=== PATIENT | female | born 1970 | race Caucasian/White ===

== ENCOUNTER 2016-07-25 17:47 | Emergency (ER) | payer BC ==
[2016-07-25] MEDS ORDERED: METOCLOPRAMIDE 10 MG/2 ML VIAL IVP STA (19:43)
[2016-07-25] MEDS ORDERED: diphenhydrAMINE 25 MG CAPSULE PO STA (19:43)
[2016-07-25] MEDS ORDERED: SODIUM CHLORIDE 0.9% 1,000 ML IV ONE (19:43)
[2016-07-25] MEDS ORDERED: ONDANSETRON 4 MG/2 ML VIAL IVP STA (19:44)
[2016-07-25] MEDS ORDERED: diphenhydrAMINE INJ 50 MG/ML VIAL ONE (19:59)
[2016-07-25] MEDS ORDERED: ONDANSETRON 4 MG/2 ML VIAL ONE (19:59)
[2016-07-25] MEDS ORDERED: METOCLOPRAMIDE 10 MG/2 ML VIAL IVP ONE (20:00)
[2016-07-25] MEDS ORDERED: diphenhydrAMINE 25 MG CAPSULE PO ONE (20:09)
[2016-07-25] MEDS ORDERED: MAG HYDROX/AL HYDROX/SIMETH 30 ML UDC PO STA (20:21)
[2016-07-25] MEDS ORDERED: HALOPERIDOL 5 MG/ML VIAL IVP ONE (20:21)
[2016-07-25] MEDS ORDERED: LORazepam 2 MG/ML SYRINGE IVP STA (20:21)
[2016-07-25] MEDS ORDERED: MAG HYDROX/AL HYDROX/SIMETH 30 ML UDC ONE (20:41)
[2016-07-25] MEDS ORDERED: HALOPERIDOL 5 MG/ML VIAL ONE (20:41)
[2016-07-25] MEDS ORDERED: LORazepam 2 MG/ML SYRINGE ONE (20:41)
== END 2016-07-25 21:39 | disposition home or self-care (01) ==
DX: G43.A1 Cyclical vomiting, in migraine, intractable (principal); F12.10 Cannabis abuse, uncomplicated; K21.9 Gastro-esophageal reflux disease without esophagitis; F17.200 Nicotine dependence, unspecified, uncomplicated
CPT/HCPCS: 36415; 80053; 81001; 81025; 83690; 85025; 96374; 96375; 99283; 99284; A9270; J2060

== ENCOUNTER 2016-08-09 07:34 | Emergency (ER) | payer BC ==
[2016-08-09] MEDS ORDERED: ONDANSETRON 4 MG/2 ML VIAL IVP STA (07:39)
[2016-08-09] MEDS ORDERED: SODIUM CHLORIDE 0.9% 1,000 ML IV ONE (07:39)
[2016-08-09] MEDS ORDERED: PROMETHAZINE INJ 25 MG in SODIUM CHLORIDE 0.9% 50 ML IV STA (07:40)
[2016-08-09] MEDS ORDERED: LORazepam 2 MG/ML SYRINGE IVP STA (07:40)
[2016-08-09] MEDS ORDERED: HALOPERIDOL 5 MG/ML VIAL IVP STA (07:40)
[2016-08-09] MEDS ORDERED: PROMETHAZINE 25 MG/1 ML VIAL ONE (08:01)
[2016-08-09] MEDS ORDERED: HALOPERIDOL 5 MG/ML VIAL ONE (08:01)
[2016-08-09] MEDS ORDERED: ONDANSETRON 4 MG/2 ML VIAL ONE (08:01)
[2016-08-09] MEDS ORDERED: LORazepam 2 MG/ML SYRINGE ONE (08:01)
[2016-08-09] MEDS ORDERED: PROMETHAZINE 25 MG/1 ML VIAL IM STA (08:05)
[2016-08-09] MEDS ORDERED: POTASSIUM BICARB 25 MEQ TABLET PO STA (09:01)
[2016-08-09] MEDS ORDERED: POTASSIUM BICARB 25 MEQ TABLET PO ONE (09:07)
== END 2016-08-09 09:24 | disposition home or self-care (01) ==
DX: E87.6 Hypokalemia (principal); E86.0 Dehydration; R11.2 Nausea with vomiting, unspecified; R10.84 Generalized abdominal pain; R19.7 Diarrhea, unspecified; K21.9 Gastro-esophageal reflux disease without esophagitis; F17.200 Nicotine dependence, unspecified, uncomplicated
CPT/HCPCS: 36415; 80053; 83690; 85025; 96361; 96372; 96374; 96375; 99283; 99284; A9270; J2060

== ENCOUNTER 2016-08-26 14:20 | Emergency (ER) | payer BC ==
[2016-08-26] MEDS ORDERED: ONDANSETRON 4 MG/2 ML VIAL IVP STA (14:42)
[2016-08-26] MEDS ORDERED: SODIUM CHLORIDE 0.9% 1,000 ML IV ONE (14:42)
[2016-08-26] MEDS ORDERED: PROMETHAZINE INJ 12.5 MG in SODIUM CHLORIDE 0.9% 50 ML IV STA ×2 (14:42→17:08)
[2016-08-26] MEDS ORDERED: MAG HYDROX/AL HYDROX/SIMETH 30 ML UDC PO STA (14:43)
[2016-08-26] MEDS ORDERED: LORazepam 2 MG/ML SYRINGE IVP STA (14:43)
[2016-08-26] MEDS ORDERED: ONDANSETRON 4 MG/2 ML VIAL ONE (15:09)
[2016-08-26] MEDS ORDERED: PROMETHAZINE 25 MG/1 ML VIAL ONE ×2 (15:10→17:24)
[2016-08-26] MEDS ORDERED: LORazepam 2 MG/ML SYRINGE ONE (15:10)
[2016-08-26] MEDS ORDERED: MAG HYDROX/AL HYDROX/SIMETH 30 ML UDC ONE (15:11)
[2016-08-26] MEDS ORDERED: HALOPERIDOL 5 MG/ML VIAL IVP ONE (16:15)
[2016-08-26] MEDS ORDERED: HALOPERIDOL 5 MG/ML VIAL ONE (16:50)
== END 2016-08-26 18:02 | disposition home or self-care (01) ==
DX: G43.A0 Cyclical vomiting, in migraine, not intractable (principal); F17.200 Nicotine dependence, unspecified, uncomplicated
CPT/HCPCS: 36415; 80053; 83690; 96365; 96366; 96375; 99283; 99284; A9270; J2060

== ENCOUNTER 2018-02-09 14:13 | Emergency (ER) | payer SELFPAY ==
[2018-02-09] MEDS ORDERED: PROMETHAZINE INJ 25 MG in SODIUM CHLORIDE 0.9% 50 ML IV STA (14:46)
[2018-02-09] MEDS ORDERED: ONDANSETRON 4 MG/2 ML VIAL IVP STA ×2 (14:46→17:11)
[2018-02-09] MEDS ORDERED: SODIUM CHLORIDE 0.9% 1,000 ML IV ONE (14:46)
[2018-02-09] MEDS ORDERED: LORazepam 2 MG/ML VIAL IVP STA ×2 (14:46→17:11)
[2018-02-09] MEDS ORDERED: KETOROLAC 15 MG/ML VIAL IVP STA (14:46)
[2018-02-09] MEDS ORDERED: MAG HYDROX/AL HYDROX/SIMETH 30 ML UDC PO STA ×2 (14:47→15:34)
[2018-02-09] MEDS ORDERED: LIDOCAINE VISCOUS 2% 15 ML UDC MM STA ×2 (14:47→15:34)
--- NOTE | 2018-02-09 14:47 | ED Physician Documentation ---
PD HPI ABD PAIN - Stated complaint Stated Complaint: VOMITING/ AB PX - Chief complaint Chief Complaint: Abd Pain - History obtained from History obtained from: Patient - History of Present Illness Timing - onset: Other (47-year-old woman with history of recurrent upper abdominal pain and vomiting. She has had this ever since she is 18 and she says she gets it when she ovulates. She has been sick for 2 weeks now with vomiting and diarrhea and epigastric pain radiating downward. She usually takes Ativan, Phenergan, and Zofran for this, she ran out of the Phenergan and Ativan. She has some blood tinge in the vomit a week ago but that is cleared up. 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 : Kidney stones HEENT: None Psych: Anxiety Musculoskeletal: Osteoarthritis Derm: None - Past Surgical History Past Surgical History: Yes General: Colonoscopy, EGD - Present Medications Home Medications: Ambulatory Orders Medication Instructions Recorded Confirmed Omeprazole [PriLOSEC] 20 mg PO DAILY 07/25/16 08/26/16 Promethazine Supp [Phenergan Supp] 25 mg DE Q6H PRN #10 supp 08/26/16 Lorazepam [Ativan] 1 mg PO TID PRN #15 tablet 02/09/18 Promethazine [Phenergan] 25 - 50 mg PO Q6H PRN #15 tab 02/09/18 - Allergies Allergies/Adverse Reactions: Allergies Allergy/AdvReac Type Severity Reaction Status Date / Time codeine [Codeine] Allergy Mild Nausea Verified 02/09/18 19:20 - Social History Does the pt smoke?: Yes Smoking Status: Current every day smoker Does the pt drink ETOH?: No Does the pt have substance abuse?: Yes - Immunizations Immunizations are current?: Yes - POLST Patient has POLST: No PD ED PE NORMAL - Vitals Vital signs reviewed: Yes - General General: Alert and oriented X 3, Other (Retching and uncomfortable) - HEENT HEENT: PERRL, EOMI - Neck Neck: Supple, no meningeal sign, No bony TTP - Cardiac Cardiac: RRR, No murmur - Respiratory Respiratory: No respiratory distress, Clear bilaterally - Abdomen Abdomen: Normal bowel sounds, Soft, Non tender - Derm Derm: Normal color, Warm and dry - Extremities Extremities: No edema, No calf tenderness / cord - Neuro Neuro: Alert and oriented X 3, Normal speech - Psych Psych: Normal mood, Normal affect Results - Vitals Vitals: Vital Signs - 24 hr 02/09/18 02/09/18 02/09/18 14:16 17:57 19:12 Temperature 36.1 C L 37.3 C Heart Rate 73 83 76 Respiratory 18 20 16 Rate Blood Pressure 149/90 H 146/88 H 135/88 H O2 Saturation 98 97 94 02/09/18 02/09/18 19:48 20:08 Temperature 36.7 C Heart Rate 73 86 Respiratory 20 16 Rate Blood Pressure 118/102 H 141/82 H O2 Saturation 97 96 Oxygen O2 Source Room air - Labs Labs: Laboratory Tests 02/09/18 02/09/18 14:35 14:35 WBC 14.7 H RBC 4.59 Hgb 14.6 Hct 43.0 MCV 93.6 MCH 31.7 H MCHC 33.8 RDW 13.9 Plt Count 333 MPV 7.8 L Neut # (Auto) 12.3 H Lymph # (Auto) 1.8 [place] # (Auto) 0.5 Eos # (Auto) 0.0 Baso # (Auto) 0.1 Absolute Nucleated RBC 0.00 Nucleated RBC % 0.0 Sodium 139 Potassium 3.4 L Chloride 109 Carbon Dioxide 22 Anion Gap 8.0 BUN 9 Creatinine 0.7 Estimated GFR (MDRD) 89 Glucose 147 H Calcium 9.0 Magnesium 1.8 Total Bilirubin 0.7 AST 18 ALT 14 Alkaline Phosphatase 57 Total Protein 7.0 Albumin 4.0 Globulin 3.0 Albumin/Globulin Ratio 1.3 Lipase 29 PD MEDICAL DECISION MAKING - ED course ED course: 47-year-old woman with a recurrent issue of vomiting and diarrhea and abdominal pain, seems to happen with ovulation. Has had extensive diagnostic testing in the past. Is out of her medications including Phenergan and Ativan. She was given medications here, and IV fluids. She never really passed an oral challenge, and I offered hospitalization but she wanted to be discharged. She understands she can return at anytime if not better. - Sepsis Event Vital Signs: Vital Signs - 24 hr 02/09/18 02/09/18 02/09/18 14:16 17:57 19:12 Temperature 36.1 C L 37.3 C Heart Rate 73 83 76 Respiratory 18 20 16 Rate Blood Pressure 149/90 H 146/88 H 135/88 H O2 Saturation 98 97 94 02/09/18 02/09/18 19:48 20:08 Temperature 36.7 C Heart Rate 73 86 Respiratory 20 16 Rate Blood Pressure 118/102 H 141/82 H O2 Saturation 97 96 Oxygen O2 Source Room air Departure - Departure Disposition: Home, Self Care Clinical Impression: Abdominal pain, Vomiting Condition: Good Record reviewed to determine appropriate education?: Yes Instructions: ED Nausea Vomiting Prescriptions: Lorazepam [Ativan] 1 mg PO TID PRN #15 tablet PRN Reason: Anxiety Promethazine [Phenergan] 25 - 50 mg PO Q6H PRN #15 tab PRN Reason: Nausea / Vomiting Comments: Call your doctor to arrange a follow-up appointment, make the next available appointment. In the interim, return anytime if worse or if new symptoms develop. Your blood pressure was elevated today on check into the emergency department. This does not mean that you have hypertension, it is a common phenomenon to come to the emergency department and have elevated blood pressure. I recommend that you see your primary care physician within the week to have it rechecked when you are feeling better.
[2018-02-09 14:55] LABS: BASOPHILS # (AUTO) 0.1 10^3/uL (0.0-0.1); BASOPHILS % (AUTO) 0.4 %; EOSINOPHILS % (AUTO) 0.3 %; HGB - HEMOGLOBIN 14.6 g/dL (12.0-16.0); LYMPHOCYTES # (AUTO) 1.8 10^3/uL (1.5-3.5); LYMPHOCYTES % (AUTO) 11.9 %; MEAN CORPUSCULAR HEMOGLOBIN 31.7 pg (27.0-31.0); MEAN CORPUSCULAR HGB CONC 33.8 g/dL (32.0-36.0); MEAN CORPUSCULAR VOLUME 93.6 fL (81.0-99.0); MEAN PLATELET VOLUME 7.8 fL (7.9-10.8); MONOCYTES # (AUTO) 0.5 10^3/uL (0.0-1.0); MONOCYTES % (AUTO) 3.6 %; NEUTROPHILS # (AUTO) 12.3 10^3/uL (1.5-6.6); NEUTROPHILS % (AUTO) 83.8 %; PLT - PLATELET COUNT 333 10^3/uL (130-450); RED BLOOD COUNT 4.59 10^6/uL (4.20-5.40); RED CELL DISTRIBUTION WIDTH 13.9 % (12.0-15.0); WHITE BLOOD COUNT 14.7 x10^3/uL (4.8-10.8)
[2018-02-09 15:10] LABS: ALBUMIN/GLOBULIN RATIO 1.3 (1.0-2.2); BILIRUBIN,TOTAL 0.7 mg/dL (0.2-1.0); CREATININE 0.7 mg/dL (0.4-1.0); MAGNESIUM 1.8 mg/dL (1.7-2.8)
[2018-02-09] MEDS ORDERED: PROMETHAZINE 25 MG/1 ML VIAL IM STA ×2 (15:34→19:50)
[2018-02-09] MEDS ORDERED: METOCLOPRAMIDE 10 MG/2 ML VIAL IVP STA (18:13)
[2018-02-09 20:09] VITALS: BP 141/82
[2018-02-09] MEDS ORDERED: PROMETHAZINE 25 MG TABLET PO STA (20:10)
[2018-02-09] MEDS ORDERED: LORazepam 0.5 MG TABLET PO STA (20:10)
== END 2018-02-09 20:20 | disposition home or self-care (01) ==
LOC: ED 14:13
DX: R10.9 Unspecified abdominal pain (principal); R11.10 Vomiting, unspecified; R03.0 Elevated blood-pressure reading, without diagnosis of hypertension
CPT/HCPCS: 36415; 80053; 83690; 83735; 85025; 96372; 96374; 96375; 99283; 99284; A9270; J2060; J2765; Q0169

== ENCOUNTER 2018-04-01 09:33 | Observation (INO) | payer MEDICAID ==
[2018-04-01 10:00] LABS: BASOPHILS # (AUTO) 0.1 10^3/uL (0.0-0.1); BASOPHILS % (AUTO) 0.5 %; EOSINOPHILS % (AUTO) 0.1 %; HGB - HEMOGLOBIN 15.2 g/dL (12.0-16.0); LYMPHOCYTES # (AUTO) 2.6 10^3/uL (1.5-3.5); LYMPHOCYTES % (AUTO) 18.2 %; MEAN CORPUSCULAR HEMOGLOBIN 31.9 pg (27.0-31.0); MEAN CORPUSCULAR HGB CONC 34.5 g/dL (32.0-36.0); MEAN CORPUSCULAR VOLUME 92.5 fL (81.0-99.0); MEAN PLATELET VOLUME 8.2 fL (7.9-10.8); MONOCYTES # (AUTO) 0.9 10^3/uL (0.0-1.0); MONOCYTES % (AUTO) 6.3 %; NEUTROPHILS # (AUTO) 10.5 10^3/uL (1.5-6.6); NEUTROPHILS % (AUTO) 74.9 %; PLT - PLATELET COUNT 262 10^3/uL (130-450); RED BLOOD COUNT 4.76 10^6/uL (4.20-5.40); RED CELL DISTRIBUTION WIDTH 14.1 % (12.0-15.0); WHITE BLOOD COUNT 14.1 x10^3/uL (4.8-10.8)
[2018-04-01 10:13] LABS: ALBUMIN 4.5 g/dL (3.2-5.5); ALBUMIN/GLOBULIN RATIO 1.3 (1.0-2.2); BILIRUBIN,TOTAL 0.7 mg/dL (0.2-1.0); CREATININE 0.7 mg/dL (0.4-1.0); TOTAL PROTEIN 7.9 g/dL (6.7-8.2)
--- NOTE | 2018-04-01 10:34 | ED Physician Documentation ---
PD HPI NVD - Stated complaint Stated Complaint: NAUSEA,VOMITING,ABD PX - Chief complaint Chief Complaint: Abd Pain - History obtained from History obtained from: Patient - History of Present Illness Timing - onset: How many days ago (3) Timing - duration: Days (3) Timing - details: Gradual onset, Still present Associated symptoms: No: Fever, Abdominal pain, Chest pain Contributing factors: Other (stress and menstration). No: Sick contact, Bad food, Travel, Recent antibiotics, Alcohol use, Anticoagulated, Diabetes Similar symptoms before: Diagnosis (cyclical vomiting) Recently seen: Not recently seen - Additonal information Additional information: 47-year-old female with a history of cyclical vomiting has developed vomiting again about 3 days ago. She has been able unable to keep anything of substance down. It has been more than 1 year since her last visit to the emergency department. She states that she did get some acupuncture that helped. Review of Systems Constitutional: denies: Fever Eyes: denies: Decreased vision Ears: denies: Ear pain Nose: denies: Rhinorrhea / runny nose, Congestion Throat: denies: Sore throat Cardiac: denies: Chest pain / pressure, Palpitations Respiratory: denies: Dyspnea, Cough GI: reports: Nausea, Vomiting. denies: Abdominal Pain : denies: Dysuria, Frequency Skin: denies: Rash Musculoskeletal: denies: Neck pain, Back pain, Extremity pain Neurologic: denies: Generalized weakness, Focal weakness, Numbness PD PAST MEDICAL HISTORY - Past Medical History Past Medical History: Yes Cardiovascular: None Respiratory: None Neuro: None Endocrine/Autoimmune: None GI: GERD, GI bleed, Ulcers, Chronic diarrhea, Other CMO: None : Kidney stones HEENT: None Psych: Anxiety Musculoskeletal: Osteoarthritis Derm: None - Past Surgical History Past Surgical History: Yes General: Colonoscopy, EGD - Present Medications Home Medications: Ambulatory Orders Medication Instructions Recorded Confirmed Ondansetron HCl [Zofran] 4 mg PO PRN 04/01/18 - Allergies Allergies/Adverse Reactions: Allergies Allergy/AdvReac Type Severity Reaction Status Date / Time codeine [Codeine] Allergy Mild Nausea Verified 04/01/18 09:41 - Social History Does the pt smoke?: Yes Smoking Status: Current every day smoker Does the pt drink ETOH?: No Does the pt have substance abuse?: Yes Substance Use and Type: Marijuana - Immunizations Immunizations are current?: Yes - POLST Patient has POLST: No PD ED PE NORMAL - Vitals Vital signs reviewed: Yes (hypertensive) - General General: Alert and oriented X 3, Well developed/nourished, Other (facial expression of nausea) - HEENT HEENT: Atraumatic, PERRL, EOMI, Other (dry mucous membranes ) - Neck Neck: Supple, no meningeal sign, No bony TTP - Cardiac Cardiac: RRR, No murmur - Respiratory Respiratory: No respiratory distress, Clear bilaterally - Abdomen Abdomen: Soft, Non tender - Back Back: No CVA TTP, No spinal TTP - Derm Derm: Normal color, Warm and dry, No rash - Extremities Extremities: No deformity, No edema - Neuro Neuro: Alert and oriented X 3, 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 ) Results - Vitals Vitals: Vital Signs - 24 hr 04/01/18 04/01/18 04/01/18 09:40 12:35 15:45 Temperature 36.6 C Heart Rate 72 68 68 Respiratory 16 22 18 Rate Blood Pressure 149/87 H 121/85 H 93/53 L O2 Saturation 97 95 96 04/01/18 04/01/18 16:39 16:44 Temperature 37.4 C Heart Rate 53 L 65 Respiratory 16 Rate Blood Pressure 94/61 O2 Saturation 96 Oxygen O2 Source Room air - Labs Labs: Laboratory Tests 04/01/18 04/01/18 04/01/18 09:50 09:50 15:10 WBC 14.1 H RBC 4.76 Hgb 15.2 Hct 44.1 MCV 92.5 MCH 31.9 H MCHC 34.5 RDW 14.1 Plt Count 262 MPV 8.2 Neut # (Auto) 10.5 H Lymph # (Auto) 2.6 [place] # (Auto) 0.9 Eos # (Auto) 0.0 Baso # (Auto) 0.1 Absolute Nucleated RBC 0.00 Nucleated RBC % 0.0 Sodium 137 Potassium 2.7 L Chloride 97 L Carbon Dioxide 27 Anion Gap 13.0 BUN 12 Creatinine 0.7 Estimated GFR (MDRD) 89 Glucose 133 H Calcium 9.0 Total Bilirubin 0.7 AST 22 ALT 17 Alkaline Phosphatase 59 Total Protein 7.9 Albumin 4.5 Globulin 3.4 Albumin/Globulin Ratio 1.3 Lipase 64 H Urine Color DARK YELLOW Urine Clarity CLOUDY Urine pH 8.5 H Ur Specific [place] 1.010 Urine Protein 30 H Urine Glucose (UA) NEGATIVE Urine Ketones NEGATIVE Urine Occult Blood SMALL H Urine Nitrite NEGATIVE Urine Bilirubin NEGATIVE Urine Urobilinogen 0.2 (NORMAL) Ur Leukocyte Esterase TRACE H Urine RBC 0-5 Urine WBC 4-5 Ur Squamous Epith Cells MOD Squamous H Urine Crystals 0-2 Triple Phosphate Amorphous Sediment Marked Urine Bacteria Rare Urine Mucus Moderate Strands Ur Microscopic Review INDICATED Urine Culture Comments NOT INDICATED Urine HCG, Qual 04/01/18 15:10 WBC RBC Hgb Hct MCV MCH MCHC RDW Plt Count MPV Neut # (Auto) Lymph # (Auto) [place] # (Auto) Eos # (Auto) Baso # (Auto) Absolute Nucleated RBC Nucleated RBC % Sodium Potassium Chloride Carbon Dioxide Anion Gap BUN Creatinine Estimated GFR (MDRD) Glucose Calcium Total Bilirubin AST ALT Alkaline Phosphatase Total Protein Albumin Globulin Albumin/Globulin Ratio Lipase Urine Color Urine Clarity Urine pH Ur Specific [place] 1.010 Urine Protein Urine Glucose (UA) Urine Ketones Urine Occult Blood Urine Nitrite Urine Bilirubin Urine Urobilinogen Ur Leukocyte Esterase Urine RBC Urine WBC Ur Squamous Epith Cells Urine Crystals Amorphous Sediment Urine Bacteria Urine Mucus Ur Microscopic Review Urine Culture Comments Urine HCG, Qual NEGATIVE PD MEDICAL DECISION MAKING - ED course Complexity details: reviewed old records, reviewed results, re-evaluated patient, considered differential, d/w patient ED course: 47-year-old female with a history of cyclic vomiting syndrome has developed vomiting again and she has some improvement with the use of intravenous Zofran and further improvement with use of intravenous Phenergan. She received 2 L of normal saline here in the emergency department and she received 10 mEq of potassium chloride and a second 20 mEq IV dose of potassium chloride. She feels improved at the conclusion of treatment and feels that she will likely be able to make it at home. After he IV is removed she immediately has issues with vomiting and admission is sought for intractable vomiting. Dr. Tran is consulted in the case and graciously agrees to care for the patient in the hospital. - Sepsis Event Vital Signs: Vital Signs - 24 hr 04/01/18 04/01/18 04/01/18 09:40 12:35 15:45 Temperature 36.6 C Heart Rate 72 68 68 Respiratory 16 22 18 Rate Blood Pressure 149/87 H 121/85 H 93/53 L O2 Saturation 97 95 96 04/01/18 04/01/18 16:39 16:44 Temperature 37.4 C Heart Rate 53 L 65 Respiratory 16 Rate Blood Pressure 94/61 O2 Saturation 96 Oxygen O2 Source Room air Departure - Departure Disposition: ED Place in Observation Clinical Impression: Hypokalemia Cyclic vomiting syndrome Qualifiers: Vomiting Intractability: intractable Nausea presence: with nausea Qualified Code(s): G43.A1 - Cyclical vomiting, intractable Condition: Stable Follow-Up: Kerrie Ruiz PA [Primary Care Provider] - Prescriptions: Promethazine Supp [Phenergan Supp] 25 mg [place] Q6HR PRN #20 supp PRN Reason: Nausea / Vomiting Ondansetron Odt [Zofran] 4 mg TL Q6H PRN #10 tablet PRN Reason: Nausea / Vomiting Potassium Chloride 20 meq PO TID #15 tablet.er
[2018-04-01] MEDS ORDERED: POTASSIUM CHLOR 10 MEQ/100 ML 10 MEQ/100 ML BAG IV ONE (11:42)
[2018-04-01] MEDS ORDERED: SODIUM CHLORIDE 0.9% 1,000 ML IV ONE ×2 (12:26→14:07)
[2018-04-01] MEDS ORDERED: ONDANSETRON 4 MG/2 ML VIAL IVP STA (12:26)
[2018-04-01] MEDS ORDERED: MAG HYDROX/AL HYDROX/SIMETH 30 ML UDC PO STA ×2 (12:26→17:34)
[2018-04-01] MEDS ORDERED: LORazepam 2 MG/ML VIAL IVP STA (12:27)
[2018-04-01] MEDS ORDERED: LIDOCAINE VISCOUS 2% 15 ML UDC MM STA ×2 (12:27→17:34)
[2018-04-01] MEDS ORDERED: PROMETHAZINE INJ 25 MG in SODIUM CHLORIDE 0.9% 50 ML IV STA ×2 (14:10→17:15)
[2018-04-01] MEDS ORDERED: POTASSIUM CHLOR 20 MEQ/100 ML 20 MEQ/100 ML BAG IV ONE (14:10)
[2018-04-01 15:36] LABS: BILIRUBIN,URINE NEGATIVE (NEGATIVE); GLUCOSE, URINE (UA) NEGATIVE (NEGATIVE); KETONES,URINE (UA) NEGATIVE (NEGATIVE); LEUKOCYTE ESTERASE, URINE TRACE (NEGATIVE); NITRITE,URINE NEGATIVE (NEGATIVE); OCCULT BLOOD,URINE SMALL (NEGATIVE); PH,URINE 8.5 PH (5.0-7.5); PROTEIN,URINE 30 mg/dL (NEGATIVE); UROBILINOGEN,URINE 0.2 (NORMAL) E.U./dL (NORMAL)
[2018-04-01 15:46] LABS: CLARITY,URINE CLOUDY (CLEAR)
[2018-04-01 15:47] LABS: RBC,URINE 0-5 /HPF (0-5); SQUAMOUS EPITHELIAL CELL,UR MOD Squamous (<= Few)
[2018-04-01 15:48] LABS: AMORPHOUS SEDIMENT,UR Marked /LPF; BACTERIA,URINE Rare /HPF (None Seen); CRYSTALS,URINE 0-2 Triple Phosphate /LPF; HCG UR QUAL NEGATIVE; MUCUS,URINE Moderate Strands
--- NOTE | 2018-04-01 18:16 | HISTORY & PHYSICAL EXAMINATION ---
Chief Complaint - Chief Complaint Chief Complaint: nausea and vomiting History of Present Illness - History of Present Illness HPI Comment/Other: Ms. Cruz is 47-yrs-old female with a PMH significance for GERD, PUP, anxiety and arthritis, current cigarette smoker, who present ER for nausea, vomiting, diffused abdominal pain. Pt has been diagnosed with cyclic vomiting and abdominal pain, on and off for last 35 yrs. From all her report, all of her w orkup has been negative. Pt reports her last nausea and vomiting, and abdominal cramp pain was three weeks ago. She did not go to hospital, the symptoms were subsided by its own. For This time, She has been nausea and vomiting and abdominal cramping from last Sunday. She has been taking Zofran at home, but she was unable to keep those symptoms down. she report a diffused abdominal pain as she had before. she has been difficult to keep down her diet. She denies recent travel or sick contacts or food poisons. She denies chest pain, shortness of breath, fever, chill, cough. 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 Social History Notes: pt report she still smokes cigarette, she denies alcohol issue. she report she smoke majuana occationally - Substance History Use: Uses substance without health or social issues: Tobacco - POLST Patient has POLST: No Meds/Allgy - Home Medications Home Medications: Ambulatory Orders Medication Instructions Recorded Confirmed Ondansetron HCl [Zofran] 4 mg PO PRN 04/01/18 - Allergies Allergies/Adverse Reactions: Allergies Allergy/AdvReac Type Severity Reaction Status Date / Time codeine [Codeine] Allergy Mild Nausea Verified 09/24/18 09:41 Review of Systems - Constitutional Constitutional: denies: Fatigue, Fever, Chills, Malaise, Weakness, Poor appetite, Diaphoresis, Night sweats - Eyes Eyes: denies: Pain, Irritation, Amaurosis, Blurred vision, Spots in vision, Field loss, Vision loss, Dipolpia - Ears, Nose & Throat Ears, Nose & Throat: denies: Ear pain, Hearing loss, Hearing aids, Tinnitus, Ve rtigo, Nasal pain, Nasal discharge, Nosebleeds, Nasal obstruction, Postnasal drainage, Dentures, Sore throat, Hoarseness - Cardiovascular Cariovascular: denies: Irregular heart rate, Palpitations, Chest pain, Edema, Lightheadedness, Syncope, Exertional dyspnea, Decr. exercise tolerance - Respiratory Respiratory: denies: Cough, Sputum production, Wheezing, Snoring, Hemoptysis, Orthopnea, SOB at rest, SOB with exertion - Gastrointestinal Gastrointestinal: reports: Abdominal pain, Nausea, Vomiting. denies: Abdominal distention, Constipation, Diarrhea, Change in bowel habits, Rectal bleeding, Black stools, Bloody stools, Bile emesis, Piero blood emesis, Coffee grounds emesis, Reflux/heartburn - Genitourinary Genitourinary: denies: Dysuria, Frequency, Urgency, Hematuria, Incontinence, Flank pain, Nocturia, Urethral discharge - Musculoskeletal Musculoskeletal: denies: Muscle pain, Back pain, Muscle aches, Stiffness, Limited range of motion, Muscle weakness, Gout, Joint pain - Integumentary Integumentary: denies: Rash, Pruritis, Lesions, Dryness, Lumps, Acne, Pigment changes - Neurological Neurological: denies: General weakness, Focal weakness, Headache, Dizziness, Numbness, Pre-existing deficit, Abnormal gait, Seizures, Incoordination, Slurred speech - Psychiatric Psychiatric: denies: Depression, Anxiety, Suicidal, Delusions, Hallucinations, Homicidal - Endocrine Endocrine: denies: Polyuria, Polydypsia, Polyphagia, Intolerance to cold - Hematologic/Lymphatic Hematologic/Lymphatic: denies: Anemia, Bruising, Petechiae, Blood clots, Lymphadenopathy, Bleeding tendencies Exam - Vital Signs Reviewed Vital Signs: Yes Vital Signs: Vital Signs x48h Temp Pulse Resp BP Pulse Ox 04/01/18 16:44 65 04/01/18 16:39 37.4 C 53 L 16 94/61 96 04/01/18 15:45 68 18 93/53 L 96 04/01/18 12:35 68 22 121/85 H 95 - Physical Exam General Appearance: positive: No acute distress, Alert. negative: Lethargic Eyes Bilateral: positive: Normal inspection, PERRL, No lid inflammation, Conjunctivae nml ENT: positive: ENT inspection nml, Pharynx nml, No signs of dehydration. negative: Purulent nasal drainage, Pharyngeal erythema, Oral lesions Neck: positive: Nml inspection, Thyroid nml, No JVD, Trachea midline. negative: Thyromegaly, Lymphadenopathy (R), Lymphadenopathy (L), Stiff neck, Swelling/bruising, Tracheal deviation Respiratory: positive: Chest non-tender, No respiratory distress, Breath sounds nml. negative: Wheezes, Rales, Rhonchi Cardiovascular: positive: Regular rate & rhythm, No murmur, No gallop. negative: Irregularly irregular, Extrasystoles, Tachycardia, Bradycardia, JVD present, Systolic murmur, Diastolic murmur Peripheral Pulses: positive: 2+ Abdomen: positive: Non-tender, No organomegaly, No distention. negative: Tenderness, Guarding, Rebound Back: positive: Nml inspection. negative: CVA tenderness (R), CVA tenderness (L) Skin: positive: Color nml, No rash, Warm, Dry. negative: Cyanosis, Diaphoresis, Pallor Extremities: positive: Non-tender, Full ROM, Nml appearance. negative: Calf tenderness, Joint swelling, Bonny's sign/cords Neurologic/Psychiatric: positive: Oriented x3, Motor nml, Sensation nml, Mood/affect nml. negative: Weakness, Sensory loss, Facial droop, Slurred/abnml speech, Depressed mood/affect Conclusion/Plan - Problem List (1) Cyclic vomiting syndrome Conclusion/Plan: chronic and recurrent. Pt report her symptoms are the similar as before clear diet, advance as tolerate, bowel rest IVF antiemesis PRN lab monitor, vital monitor Qualifiers: Vomiting Intractability: intractable Nausea presence: with nausea Qualified Code(s): G43.A1 - Cyclical vomiting, intractable (2) Hypokalemia Conclusion/Plan: replace with potassium will lab check (3) GERD (gastroesophageal reflux disease) Conclusion/Plan: hx of GERD, abdominal cramping IV of Protonic (4) Lymphocytosis Conclusion/Plan: Pt has hx of slight elevated WBC in her almost every hospital visit, UA seems negative for UTI, no fever/chill vital monitor, lab monitor. (5) Abdominal pain Conclusion/Plan: part complaint of her cyclic vomiting syndrome, all studies are negative as far, recurrent and chronic problem pain control, pt is allergy with codeine Toradol PRN, less than 5 days Tylenol PRN (6) Anxiety Conclusion/Plan: hx of anxiety PO ativan PRN (7) DVT prophylaxis Conclusion/Plan: SCD and Lovenox (8) Do not intubate, cardiopulmonary resuscitation (CPR)-only code status Conclusion/Plan: pt clearly request DNR for her code status - Lab Results Fish Bones: 04/01/18 09:50 04/01/18 09:50 Core Measures - Anticipated LOS I expect patient to be DC'd or transferred within 96 hours.: Yes - DVT/VTE - Prophylaxis VTE/DVT Device ordered at admit?: Yes VTE/DVT Prophylaxis med ordered at admit?: Yes
[2018-04-01] MEDS ORDERED: ONDANSETRON 4 MG/2 ML VIAL IVP PRN (18:18)
[2018-04-01] MEDS ORDERED: PROCHLORPERAZINE 10 MG/2 ML VIAL IVP PRN (18:18)
[2018-04-01] MEDS ORDERED: ZOLPIDEM 5 MG TABLET PO PRN (18:18)
[2018-04-01] MEDS ORDERED: PROMETHAZINE 25 MG/1 ML VIAL IM PRN (18:18)
[2018-04-01] MEDS ORDERED: ACETAMINOPHEN 325 MG TABLET PO PRN (18:18)
[2018-04-01] MEDS ORDERED: KETOROLAC 15 MG/ML VIAL IVP PRN (19:27)
[2018-04-01] MEDS: PANTOPRAZOLE 40 MG VIAL IVP SCH (19:32)
[2018-04-01] MEDS: SODIUM CHLORIDE FLUSH 0.9% 10 ML SYRINGE IVP PRN (19:32)
[2018-04-01] MEDS: POTASSIUM CHLOR 10 MEQ/100 ML 10 MEQ/100 ML BAG IV SCH ×2 (19:37→20:43)
[2018-04-01] MEDS ORDERED: NS W/20 MEQ KCL 1,000 ML IV SCH (20:45)
[2018-04-01] MEDS: NS W/20 MEQ KCL 1,000 ML IV SCH (21:30)
[2018-04-01 22:36] LABS: AMPHETAMINE SCREEN,URINE NEGATIVE (NEGATIVE); BENZODIAZEPINES SCREEN, URINE POSITIVE (NEGATIVE); COCAINE SCREEN URINE NEGATIVE (NEGATIVE); METHADONE SCREEN, URINE NEGATIVE (NEGATIVE); METHAMPHETAMINES SCREEN, URINE NEGATIVE (NEGATIVE); MUDS CUTOFF CONCENTRATIONS CUTOFF CONC BELOW:; OPIATE SCREEN, URINE NEGATIVE (NEGATIVE); OXYCODONE SCREEN, URINE NEGATIVE (NEGATIVE); PROPOXYPHENE SCREEN, URINE NEGATIVE (NEGATIVE); TRICYCLIC ANTIDEPRESSANT,URINE NEGATIVE (NEGATIVE)
[2018-04-01] MEDS: SODIUM CHLORIDE FLUSH 0.9% 10 ML SYRINGE IVP SCH (23:09)
[2018-04-01] MEDS ORDERED: LORazepam 0.5 MG TABLET PO PRN (23:17)
[2018-04-02] MEDS: NS W/20 MEQ KCL 1,000 ML IV SCH (04:04)
[2018-04-02 05:31] LABS: BASOPHILS % (AUTO) 0.4 %; EOSINOPHILS % (AUTO) 0.2 %; HGB - HEMOGLOBIN 12.3 g/dL (12.0-16.0); LYMPHOCYTES # (AUTO) 3.4 10^3/uL (1.5-3.5); MEAN CORPUSCULAR HEMOGLOBIN 32.3 pg (27.0-31.0); MEAN CORPUSCULAR HGB CONC 34.3 g/dL (32.0-36.0); MEAN CORPUSCULAR VOLUME 94.4 fL (81.0-99.0); MEAN PLATELET VOLUME 8.4 fL (7.9-10.8); MONOCYTES # (AUTO) 0.7 10^3/uL (0.0-1.0); MONOCYTES % (AUTO) 6.6 %; NEUTROPHILS # (AUTO) 5.9 10^3/uL (1.5-6.6); NEUTROPHILS % (AUTO) 58.8 %; PLT - PLATELET COUNT 186 10^3/uL (130-450); RED BLOOD COUNT 3.82 10^6/uL (4.20-5.40); RED CELL DISTRIBUTION WIDTH 13.7 % (12.0-15.0); WHITE BLOOD COUNT 10.1 x10^3/uL (4.8-10.8)
[2018-04-02 05:46] LABS: ALBUMIN 3.1 g/dL (3.2-5.5); ALBUMIN/GLOBULIN RATIO 1.3 (1.0-2.2); BILIRUBIN,TOTAL 0.5 mg/dL (0.2-1.0); CREATININE 0.6 mg/dL (0.4-1.0); MAGNESIUM 2.1 mg/dL (1.7-2.8); TOTAL PROTEIN 5.5 g/dL (6.7-8.2)
[2018-04-02] MEDS: SODIUM CHLORIDE FLUSH 0.9% 10 ML SYRINGE IVP PRN (06:12)
[2018-04-02] MEDS: PANTOPRAZOLE 40 MG VIAL IVP SCH (06:12)
[2018-04-02] MEDS: SODIUM CHLORIDE FLUSH 0.9% 10 ML SYRINGE IVP SCH (07:19)
[2018-04-02] MEDS ORDERED: POLYETHYLENE GLYCOL 3350 17 GM PACKET PO SCH (09:00)
[2018-04-02] MEDS ORDERED: ENOXAPARIN 40 MG/0.4 ML SYRINGE SUBQ SCH (09:00)
--- NOTE | 2018-04-02 09:20 | DISCHARGE SUMMARY ---
"Discharge Summary Admit Date: 04/01/18 Discharge Date: 04/02/18 Discharging Provider: GRIS Kirby Primary Care Provider: Kerrie Ruiz Code Status: Attempt Resuscitation Condition at Discharge: Good Discharge Disposition: 01 Home, Self Care - DIAGNOSES Admission Diagnoses: Cyclical vomiting, not intractable (G43.A0) Nausea with vomiting, unspecified (R11.2) Hypokalemia (E87.6) Elevated white blood cell count, unspecified (D72.829) Gastro-esophageal reflux disease without esophagitis (K21.9) Discharge Diagnoses with Status of Each Condition: Cyclic vomiting syndrome (G43.A0) resolved. Hypokalemia (E87.6) resolved. Leukocytosis (D72.829) resolved. GERD (gastroesophageal reflux disease) (K21.9) chronic, stable. Intractable nausea and vomiting (R11.2) resolved. Menstrual symptom or sign (N94.9) chronic, stable. Tobacco dependence (F17.200)chronic, stable. - HPI History of Present Illness: Gale Cruz (Katie) is 47-yr-old female with a past medical history of GERD, peptic ulcer disease, anxiety, arthritis, and current cigarette smoker, who presented to the ER with nausea, vomiting, and diffuse abdominal pain that started last Sunday. The patient has been diagnosed with cyclic vomiting and abdominal pain in the past, on and off for last 35 years and is typically around the time of her menses. Previous workups have been negative. The patient reported that her last nausea, vomiting, and abdominal cramping pain was three weeks ago. She did not go to hospital and the symptoms subsided by its own. She has been taking Zofran at home, but her symptoms continued to progress with the inability to keep anything orally down. She denied chest pain, shortness of breath, fevers, chills, or a cough. She will be admitted to our observation unit to further control her symptoms. - CONSULTS | PROCEDURES Consultations: Phone consult-Dr. Shah for an interest in a possible IUD placement. - HOSPITAL COURSE Hospital Course: (1) Cyclic vomiting syndrome The patient has been suffering from this for most of her adult life and it is thought to be chronic and recurrent. The patient reported her symptoms to be similar as before. The patient was given a clear diet, then advanced to a soft diet. This is resolved upon discharge and the patient had zofran prescribed previously. (2) Hypokalemia The patient had a very low potassium of 2.7 upon admission, that improved to 3.7 at the time of discharge. She was given IV fluids with potassium and was given oral replacement. This was likely caused by nausea and vomiting. At the time of discharge, the patient was tolerating a meal and was no longer nauseated. (3) GERD (gastroesophageal reflux disease) The patient has a history of GERD and is prescribed carafate, prilosec and zantac at home. She was also found to have abdominal cramping. She denied black stool. She was given IV Protonix, that was discontinued. (4) Lymphocytosis Pt has a history of slightly elevated WBC in her almost every hospital visit, and upon admission, she had a WBC count of 14.1, that improved to 10.1 upon d ischarge. A urine sample was obtained and was negative for UTI. The patient reported no fever or chill and remained afebrile for her hospital stay. (5) Abdominal pain The patient complained of low abdominal pain and states that this occurs when she is menstruating. She was given Toradol PRN, and Tylenol PRN. This has resolved upon discharge. (6) Anxiety The patient has a history of anxiety. She was given oral ativan as needed, and this has subsided upon discharge. (7) Tobacco dependence The patient states that she has been a smoker for much of her adulthood, and continues to smoke up to 1/2 PPD. She was offered a nicotine patch upon admission, but declined. (8) Menstrual symptoms The patient states that since age 18, she has had severe menstrual symptoms in which she becomes nauseated, vomits, and these symptoms subsided after her cycle. She states that she has never been , does not have children, and has never had any gynecological procedures or surgeries. A call was made to Dr. Shah for a phone consult as possibly an IUD would serve her well in making her symptoms less severe as she gets through her suspected menopause. Disposition: The patient was medically stable and was agreeable to see a wool hanker out patient for further work up of her irregular and more severe PMS/menstrual cycles that has been progressive for the past year. - ALLERGIES Allergies/Adverse Reactions: Allergies Allergy/AdvReac Type Severity Reaction Status Date / Time codeine [Codeine] Allergy Mild Nausea Verified 04/01/18 09:41 - MEDICATIONS Home Medications: Ambulatory Orders Medication Instructions Recorded Confirmed ALPRAZolam [Alprazolam] 0.5 mg PO BID PRN 04/02/18 04/02/18 LORazepam [Lorazepam] 1 mg PO .Q6-8H PRN 04/02/18 04/02/18 Omeprazole 20 mg PO DAILY PRN 04/02/18 04/02/18 Ondansetron [Ondansetron Odt] 8 mg SL Q8H PRN 04/02/18 04/02/18 Promethazine Supp [Phenergan Supp] 25 mg [place] Q6H PRN 04/02/18 04/02/18 Sucralfate 1 gm PO QID PRN 04/02/18 04/02/18 raNITIdine HCl [Ranitidine HCl] 150 mg PO DAILY 04/02/18 04/02/18 - PHYSICAL EXAM AT DISCHARGE General Appearance: positive: No acute distress, Alert Eyes Bilateral: positive: Normal inspection, PERRL ENT: positive: ENT inspection nml, Pharynx nml, No signs of dehydration Neck: positive: Nml inspection, Thyroid nml, No JVD, Trachea midline Respiratory: positive: Chest non-tender, No respiratory distress, Breath sounds nml Cardiovascular: positive: Regular rate & rhythm, No murmur, No gallop Peripheral Pulses: positive: 2+ Abdomen: positive: Non-tender, No organomegaly, Nml bowel sounds, No distention Back: positive: Nml inspection Skin: positive: Color nml, No rash, Warm, Dry Extremities: positive: Non-tender, Full ROM, Nml appearance, No pedal edema Neurologic/Psychiatric: positive: Oriented x3, CN's nml (2-12), Motor nml, Sensation nml, Mood/affect nml Reflexes: Bicep (R): 4+, Bicep (L): 4+ - LABS Result Diagrams: 04/02/18 04:45 04/02/18 04:45 - DIAGNOSTIC IMAGING Diagnostic Imaging Results Comments: No imaging was done. - FOLLOW UP Follow Up: Disposition: 01 Home, Self Care Condition: Good Diet: Regular Activity Restrictions: Activity as Tolerated Shower Restrictions: No Driving Restrictions: No Weight Bearing: Full Weight Additional Instructions or Follow Up instructions: You were admitted with nausea and vomiting that improved with IV fluids. One possible cause of these symptoms are your menses. I spoke with Dr. Shah in regards to further work up. You should see the Gynocology office out patient, which is located in the [facility] clinic next to the [facility]. You should see your PCP within one week. - TIME SPENT Time Spent in Discharge (Minutes): 45"
[2018-04-02 13:17] VITALS: BP 100/60
== END 2018-04-02 13:35 | disposition home or self-care (01) ==
LOC: ED 09:33 → MS3 18:18
PROVIDERS: ADMIT Nurse Practitioner Gerontology; ATTEND Nurse Practitioner
DX: G43.A1 Cyclical vomiting, in migraine, intractable (principal); E87.6 Hypokalemia; K21.9 Gastro-esophageal reflux disease without esophagitis; D72.820 Lymphocytosis (symptomatic); R10.30 Lower abdominal pain, unspecified; F41.9 Anxiety disorder, unspecified; F17.210 Nicotine dependence, cigarettes, uncomplicated; N94.3 Premenstrual tension syndrome; Z66 Do not resuscitate
CPT/HCPCS: 36415; 80053; 80306; 81001; 81025; 83690; 83735; 85025; 96361; 96365; 96366; 96367; 96375; 96376; 99283; 99284; A9270; G0378; J2060; J7040; 81003; 87086

== ENCOUNTER 2018-05-01 14:15 | Outpatient (CLI) | payer MEDICAID ==
--- NOTE | 2018-05-02 09:37 | Mammography Report ---
Reason: BILAT DIAG wTOMO Procedure Date: 05/01/2018 Accession Number: [id number] / [id number] Procedure: SO - Diagnostic Bilat 3D Bill CPT Code: 37829 FULL RESULT: EXAM: Breast Unilateral Limited, Diagnostic Bilat 3D Bill DATE: 05/01/2018 4:02 PM CLINICAL HISTORY: Left breast pain/palpable lump BILATERAL MAMMOGRAPHY TECHNIQUE: Bilateral CC and MLO views were obtained. COMPARISON: 02/04/2014, 01/14/2014, 07/27/2010 FINDINGS: There are scattered fibroglandular densities. Asymmetric breast tissue in the superior left breast is stable. A faint nodular density in the 12:00 position right breast is also stable. No new suspicious masses, clustered microcalcifications, or regions of architectural distortion are identified. LEFT BREAST ULTRASOUND TECHNIQUE: Real-time scanning by the voice systems engineer of the left breast 2:00 position in the area of clinical interest with saved static images reviewed. FINDINGS: No cystic or solid mass or abnormal fluid collection is noted in the upper outer quadrant of the left breast. IMPRESSION: Benign findings RECOMMENDATION: Routine annual screening unless otherwise clinically indicated. Comment: This examination was monitored by Dr. Lrason on 05/01/2018 and is dictated on 05/02/2018 in order to create a complete report. BIRADS CATEGORY 2: Benign findings STANDARD QUALIFYING STATEMENTS: 1. This examination was not reviewed with the aid of Computer-Aided Detection (CAD). 2. A negative or benign imaging report should not delay biopsy if clinically suspicious findings are present. Consider surgical consultation if warrented. More than 5% of cancers are not identified by imaging. 3. Dense breasts may obscure an underlying neoplasm. 4. This examination was reviewed with the aid of 3D breast imaging (tomosynthesis).
== END 2018-05-01 14:16 | disposition home or self-care (01) ==
LOC: DI 14:15
PROVIDERS: ATTEND Family Medicine
DX: N63.20 Unspecified lump in the left breast, unspecified quadrant (principal); Z80.3 Family history of malignant neoplasm of breast
CPT/HCPCS: 76642; 77062

== ENCOUNTER 2018-05-11 20:27 | Emergency (ER) | payer MEDICAID ==
--- NOTE | 2018-05-11 20:49 | ED Physician Documentation ---
PD HPI NVD - Stated complaint Stated Complaint: N/V/CHILLS - Chief complaint Chief Complaint: Abd Pain - History obtained from History obtained from: Patient - History of Present Illness Timing - onset: How many days ago (2) Timing - details: Gradual onset, Waxing and waning Pain level now: 3 Associated symptoms: Abdominal pain. No: Fever, Chest pain Improved by: Other (no ameliorating factors) Worsened by: Other (no exacerbating factors) Recently seen: Not recently seen - Additonal information Additional information: patient complains of nausea, vomiting, diarrhea, associated with mild midline lower abdominal pain. Symptoms started approximately two days ago. Shes had many previous emergency department visits in the past for similar symptoms, occasionally requiring admission to the hospital for intractable symptoms. Patient tells me that there has not been a diagnosis for the symptoms, although she told the triage nurse she has been told the symptoms could be due to cyclical vomiting syndrome. patient says tonights symptoms are similar to previous episodes and that she typically improves with zofran, phenergan, and ativan. 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 : Kidney stones HEENT: None Psych: Anxiety Musculoskeletal: Osteoarthritis Derm: None - Past Surgical History Past Surgical History: Yes General: Colonoscopy, EGD - Present Medications Home Medications: Ambulatory Orders Medication Instructions Recorded Confirmed ALPRAZolam [Alprazolam] 0.5 mg PO BID PRN 04/02/18 04/02/18 LORazepam [Lorazepam] 1 mg PO .Q6-8H PRN 04/02/18 04/02/18 Omeprazole 20 mg PO DAILY PRN 04/02/18 04/02/18 Ondansetron [Ondansetron Odt] 8 mg SL Q8H PRN 04/02/18 04/02/18 Promethazine Supp [Phenergan Supp] 25 mg ND Q6H PRN 04/02/18 04/02/18 Sucralfate 1 gm PO QID PRN 04/02/18 04/02/18 raNITIdine HCl [Ranitidine HCl] 150 mg PO DAILY 04/02/18 04/02/18 LORazepam [Ativan] 0.5 mg PO Q6H PRN #10 tablet 05/12/18 Ondansetron Odt [Zofran] 4 mg TL Q6H PRN #14 tablet 05/12/18 Promethazine Supp [Phenergan Supp] 25 mg ND Q6HR PRN #7 supp 05/12/18 - Allergies Allergies/Adverse Reactions: Allergies Allergy/AdvReac Type Severity Reaction Status Date / Time codeine [Codeine] Allergy Mild Nausea Verified 05/11/18 20:35 - Social History Does the pt smoke?: Yes Smoking Status: Current every day smoker Does the pt drink ETOH?: No Does the pt have substance abuse?: Yes - Immunizations Immunizations are current?: Yes - POLST Patient has POLST: No PD ED PE NORMAL - Vitals Vital signs reviewed: Yes - General General: Alert and oriented X 3, Well developed/nourished, Other (vomits several times during H+P) - HEENT HEENT: Other (dry mucous membranes) - Cardiac Cardiac: RRR, No murmur - Respiratory Respiratory: No respiratory distress, Clear bilaterally - Abdomen Abdomen: Normal bowel sounds, Soft, Non tender, Non distended - Derm Derm: Normal color, Warm and dry - Extremities Extremities: No edema Results - Vitals Vitals: Oxygen O2 Source Room air - Labs Labs: Laboratory Tests 05/11/18 05/11/18 05/12/18 20:53 20:53 00:20 WBC 17.1 H RBC 4.59 Hgb 14.2 Hct 43.0 MCV 93.8 MCH 30.9 MCHC 32.9 RDW 13.9 Plt Count 296 MPV 8.3 Neut # (Auto) 15.5 H Lymph # (Auto) 1.1 L [place] # (Auto) 0.4 Eos # (Auto) 0.0 Baso # (Auto) 0.1 Absolute Nucleated RBC 0.01 Nucleated RBC % 0.1 Sodium 146 H Potassium 3.2 L Chloride 111 Carbon Dioxide 21 Anion Gap 14.0 H BUN 13 Creatinine 0.7 Estimated GFR (MDRD) 89 Glucose 190 H Calcium 9.7 Total Bilirubin 0.7 AST 22 ALT 14 Alkaline Phosphatase 61 Total Protein 8.3 H Albumin 4.6 Globulin 3.7 Albumin/Globulin Ratio 1.2 Lipase 18 L Urine Color YELLOW Urine Clarity CLEAR Urine pH 6.0 Ur Specific [place] 1.025 Urine Protein NEGATIVE Urine Glucose (UA) NEGATIVE Urine Ketones >=80 H Urine Occult Blood TRACE-INTA Urine Nitrite NEGATIVE Urine Bilirubin NEGATIVE Urine Urobilinogen 0.2 (NORMAL) Ur Leukocyte Esterase SMALL H Urine RBC 6-10 H Urine WBC 4-5 Ur Squamous Epith Cells MOD Squamous H Urine Bacteria Few Urine Mucus Moderate Strands Ur Microscopic Review INDICATED Urine Culture Comments NOT INDICATED PD MEDICAL DECISION MAKING - ED course Complexity details: reviewed results, re-evaluated patient, considered differential ED course: patient did not request any pain medication during ED stay. Her symptoms improved with Zofran, Ativan, and Phenergan. These were given IV. She was also given intravenous fluids. There was no vomiting subsequent to these medications been given. she did request more of these medications and reevaluation due to ongoing nausea. I explained that the intravenous use a Phenergan, while commonly used, is still not approved and thus I typically wood give no more than 25 mg IV, as there are no specific intravenous guidelines for this medication. The patient felt very strongly about getting second doses of all three medications. I did feel comfortable giving more of these medications, although I started by getting a second dose of IV Phenergan because patient appeared to have some drowsiness on the exam after first doses given, and phenergan and ativan can have sedating effect. after the second dose of phenergan, patient reported ongoing nausea and thus second doses of zofran and ativan given (zofran 8mg given initially and thus 4mg dose given as follow-up dose). this resulted in adequate improvement such that patient requested discharge home. Departure - Departure Disposition: 01 Home, Self Care Clinical Impression: Abdominal pain Vomiting Qualifiers: Vomiting type: unspecified Vomiting Intractability: non-intractable Nausea presence: with nausea Qualified Code(s): R11.2 - Nausea with vomiting, unspecified Condition: Good Instructions: ED Abdominal Pain Unkn Cause, ED Nausea Vomiting Follow-Up: Kerrie Ruiz PA [Primary Care Provider] - Within 1 week Prescriptions: Promethazine Supp [Phenergan Supp] 25 mg ND Q6HR PRN #7 supp PRN Reason: Nausea / Vomiting LORazepam [Ativan] 0.5 mg PO Q6H PRN #10 tablet PRN Reason: Anxiety Ondansetron Odt [Zofran] 4 mg TL Q6H PRN #14 tablet PRN Reason: Nausea / Vomiting Discharge Date/Time: 05/12/18 01:07 PDT
[2018-05-11] MEDS ORDERED: SODIUM CHLORIDE 0.9% 1,000 ML IV ONE (20:56)
[2018-05-11] MEDS ORDERED: LORazepam 2 MG/ML VIAL IVP STA (21:05)
[2018-05-11] MEDS ORDERED: ONDANSETRON 4 MG/2 ML VIAL IVP STA (21:05)
[2018-05-11] MEDS ORDERED: PROMETHAZINE INJ 25 MG in SODIUM CHLORIDE 0.9% 50 ML IV STA ×2 (21:05→23:07)
[2018-05-11 21:10] LABS: BASOPHILS # (AUTO) 0.1 10^3/uL (0.0-0.1); BASOPHILS % (AUTO) 0.4 %; HGB - HEMOGLOBIN 14.2 g/dL (12.0-16.0); LYMPHOCYTES # (AUTO) 1.1 10^3/uL (1.5-3.5); LYMPHOCYTES % (AUTO) 6.3 %; MEAN CORPUSCULAR HEMOGLOBIN 30.9 pg (27.0-31.0); MEAN CORPUSCULAR HGB CONC 32.9 g/dL (32.0-36.0); MEAN CORPUSCULAR VOLUME 93.8 fL (81.0-99.0); MEAN PLATELET VOLUME 8.3 fL (7.9-10.8); MONOCYTES # (AUTO) 0.4 10^3/uL (0.0-1.0); MONOCYTES % (AUTO) 2.5 %; NEUTROPHILS # (AUTO) 15.5 10^3/uL (1.5-6.6); NEUTROPHILS % (AUTO) 90.8 %; PLT - PLATELET COUNT 296 10^3/uL (130-450); RED BLOOD COUNT 4.59 10^6/uL (4.20-5.40); RED CELL DISTRIBUTION WIDTH 13.9 % (12.0-15.0); WHITE BLOOD COUNT 17.1 x10^3/uL (4.8-10.8)
[2018-05-11 21:26] LABS: ALBUMIN 4.6 g/dL (3.2-5.5); ALBUMIN/GLOBULIN RATIO 1.2 (1.0-2.2); BILIRUBIN,TOTAL 0.7 mg/dL (0.2-1.0); CALCIUM 9.7 mg/dL (8.5-10.3); CREATININE 0.7 mg/dL (0.4-1.0); TOTAL PROTEIN 8.3 g/dL (6.7-8.2)
[2018-05-11] MEDS ORDERED: SODIUM CHLORIDE 0.9% 1,000 ML IV STA (23:07)
[2018-05-12] MEDS ORDERED: LORazepam 2 MG/ML VIAL IVP STA (00:01)
[2018-05-12] MEDS ORDERED: ONDANSETRON 4 MG/2 ML VIAL IVP STA (00:01)
[2018-05-12 00:25] LABS: BILIRUBIN,URINE NEGATIVE (NEGATIVE); CLARITY,URINE CLEAR (CLEAR); GLUCOSE, URINE (UA) NEGATIVE (NEGATIVE); KETONES,URINE (UA) >=80 mg/dL (NEGATIVE); LEUKOCYTE ESTERASE, URINE SMALL (NEGATIVE); NITRITE,URINE NEGATIVE (NEGATIVE); OCCULT BLOOD,URINE TRACE-INTA (NEGATIVE); PROTEIN,URINE NEGATIVE (NEGATIVE); UROBILINOGEN,URINE 0.2 (NORMAL) E.U./dL (NORMAL)
[2018-05-12 00:29] LABS: BACTERIA,URINE Few /HPF (None Seen); SQUAMOUS EPITHELIAL CELL,UR MOD Squamous (<= Few)
[2018-05-12 00:30] LABS: MUCUS,URINE Moderate Strands
[2018-05-12 01:07] VITALS: BP 136/72
== END 2018-05-12 01:07 | disposition home or self-care (01) ==
LOC: ED 20:27
DX: R10.9 Unspecified abdominal pain (principal); R11.2 Nausea with vomiting, unspecified; F17.200 Nicotine dependence, unspecified, uncomplicated
CPT/HCPCS: 36415; 80053; 81001; 83690; 85025; 96361; 96365; 96375; 96376; 99283; 99284; J2060; J7040; 81003; 87086

== ENCOUNTER 2018-05-17 08:57 | Emergency (ER) | payer MEDICAID ==
[2018-05-17] MEDS ORDERED: PROMETHAZINE INJ 25 MG in SODIUM CHLORIDE 0.9% 50 ML IV STA (09:15)
[2018-05-17] MEDS ORDERED: SODIUM CHLORIDE 0.9% 1,000 ML IV ONE ×2 (09:15→11:02)
[2018-05-17] MEDS ORDERED: LORazepam 2 MG/ML VIAL IVP STA (09:15)
[2018-05-17] MEDS ORDERED: ONDANSETRON 4 MG/2 ML VIAL IVP STA (09:15)
--- NOTE | 2018-05-17 09:20 | ED Physician Documentation ---
History of Present Illness - Stated complaint Stated Complaint: N/V - Chief complaint Chief Complaint: Abd Pain - Additonal information Additional information: hx from pt 47 f > 19 ER visits per EMR hyperemesis, possibly cannaboid related has had extensive work up in the pas : CT (only diverticulosis and renal cyst) sono (nl GB) EGD and colonoscopy has zofran and phenergan at [facility] when sx are severe she comes to the ER to get zofran phenergan and and ativan IV last visit 5 days [place] to ED today for same intactable NVD no blood no fever no bad food no travel no sick contacts no recent ab on control so doubts some abd pain too all over and non specific no prior surgeries Review of Systems Constitutional: denies: Fever, Chills Cardiac: denies: Chest pain / pressure Respiratory: denies: Dyspnea GI: reports: Abdominal Pain, Nausea, Vomiting, Diarrhea. denies: Hematemesis, Bloody / black stool : reports: Control. 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 : Kidney stones HEENT: None Psych: Anxiety Musculoskeletal: Osteoarthritis Derm: None - Past Surgical History Past Surgical History: Yes General: Colonoscopy, EGD - Present Medications Home Medications: Ambulatory Orders Medication Instructions Recorded Confirmed ALPRAZolam [Alprazolam] 0.5 mg PO BID PRN 04/02/18 04/02/18 LORazepam [Lorazepam] 1 mg PO .Q6-8H PRN 04/02/18 04/02/18 Omeprazole 20 mg PO DAILY PRN 04/02/18 04/02/18 Ondansetron [Ondansetron Odt] 8 mg SL Q8H PRN 04/02/18 04/02/18 Promethazine Supp [Phenergan Supp] 25 mg [place] Q6H PRN 04/02/18 04/02/18 Sucralfate 1 gm PO QID PRN 04/02/18 04/02/18 raNITIdine HCl [Ranitidine HCl] 150 mg PO DAILY 04/02/18 04/02/18 LORazepam [Ativan] 0.5 mg PO Q6H PRN #10 tablet 05/12/18 Ondansetron Odt [Zofran] 4 mg TL Q6H PRN #14 tablet 05/12/18 Promethazine Supp [Phenergan Supp] 25 mg [place] Q6HR PRN #7 supp 05/12/18 Ondansetron Odt [Zofran] 4 mg TL Q6H PRN #20 tablet 05/17/18 Promethazine Supp [Phenergan Supp] 25 mg [place] Q6H PRN #20 supp 05/17/18 - Allergies Allergies/Adverse Reactions: Allergies Allergy/AdvReac Type Severity Reaction Status Date / Time codeine [Codeine] Allergy Mild Nausea Verified 05/17/18 09:11 - Social History Does the pt smoke?: Yes Smoking Status: Current every day smoker Does the pt drink ETOH?: No Does the pt have substance abuse?: Yes - Immunizations Immunizations are current?: Yes - POLST Patient has POLST: No PD ED PE NORMAL - Vitals Vital signs reviewed: Yes - General General: Other (in her bathrobe curled in postion with emesis bag) - Neck Neck: Supple, no meningeal sign - Cardiac Cardiac: RRR - Respiratory Respiratory: No respiratory distress - Abdomen Abdomen: Soft, Other (mild diffuse TTP without guarding or rebound) - Derm Derm: Normal color - Neuro Neuro: Alert and oriented X 3 Results - Vitals Vitals: Vital Signs - 24 hr 05/17/18 09:06 Temperature 35.7 C L Heart Rate 81 Respiratory 14 Rate Blood Pressure 129/90 H O2 Saturation 100 Oxygen O2 Source Room air - Labs Labs: Laboratory Tests 05/17/18 09:47 Sodium 137 Potassium 3.7 Chloride 103 Carbon Dioxide 24 Anion Gap 10.0 BUN 12 Creatinine 0.8 Estimated GFR (MDRD) 77 L Glucose 130 H Calcium 9.1 Serum HCG, Qual NEGATIVE PD MEDICAL DECISION MAKING - ED course ED course: no further NV after meds and 1 L NS went to reassure pt labs look fine and to dc she is reluctant to leave states she will have to come back I advised she could take her home meds (ODT zofran and rectal phenergean) if sx return she req another L NS and more time pt still not vomiting but feels she might asked to be amditted to the hospital I explained that with this being a chronic problem already extensively worked up with normal labs I did not think admit to observation would help - that she could remain in the ER longer for IVF but it was too ealry for more meds so she asked for her IV to be removed and asked for refills of her meds - I will rx the zofran and phenergan but advised PMD needs to manage ativan Departure - Departure Disposition: Home, Self Care Clinical Impression: Hyperemesis Condition: Good Instructions: ED Diet Vomiting Diarrhea, ED Nausea Vomiting Follow-Up: Kerrie Ruiz PA [Primary Care Provider] - Prescriptions: Ondansetron Odt [Zofran] 4 mg TL Q6H PRN #20 tablet PRN Reason: Nausea / Vomiting Promethazine Supp [Phenergan Supp] 25 mg [place] Q6H PRN #20 supp PRN Reason: vomiting Comments: Rest Drink plenty of fluids Take your home medications as prescribed Try stopping your marijuana use - it may take weeks or even months but he frequency and severity of these episodes should subside Forms: Activity restrictions
[2018-05-17 10:00] LABS: BUN - BLOOD UREA NITROGEN 12 mg/dL (6-20); CALCIUM 9.1 mg/dL (8.5-10.3); CARBON DIOXIDE - CO2 24 mmol/L (21-32); CHLORIDE 103 mmol/L (101-111); CREATININE 0.8 mg/dL (0.4-1.0); GFR - MDRD 77 (>89); GLUCOSE 130 mg/dL (70-100); SODIUM 137 mmol/L (135-145)
[2018-05-17 10:13] LABS: HCG,QUALITATIVE BLOOD NEGATIVE
[2018-05-17 12:50] VITALS: BP 124/88
== END 2018-05-17 12:50 | disposition home or self-care (01) ==
LOC: ED 08:57
DX: R11.10 Vomiting, unspecified (principal); F17.200 Nicotine dependence, unspecified, uncomplicated
CPT/HCPCS: 36415; 80048; 84703; 96361; 96365; 96375; 99283; J2060; J7040

== ENCOUNTER 2018-09-07 14:12 | Emergency (ER) | payer MEDICAID ==
[2018-09-07] MEDS ORDERED: SODIUM CHLORIDE 0.9% 1,000 ML IV ONE ×2 (14:50→17:48)
[2018-09-07] MEDS ORDERED: LORazepam 2 MG/ML VIAL IVP STA ×2 (15:18→17:48)
[2018-09-07] MEDS ORDERED: ONDANSETRON 4 MG/2 ML VIAL IVP STA ×2 (15:18→17:48)
[2018-09-07] MEDS ORDERED: PROMETHAZINE INJ 25 MG in SODIUM CHLORIDE 0.9% 50 ML IV STA ×2 (15:18→17:48)
--- NOTE | 2018-09-07 15:26 | ED Physician Documentation ---
PD HPI NVD - Stated complaint Stated Complaint: VOMITING - Chief complaint Chief Complaint: Abd Pain - History obtained from History obtained from: Patient, Family - History of Present Illness Timing - onset: Last night Timing - duration: Days (1) Timing - details: Gradual onset Pain level max: 5 Pain level now: 4 Associated symptoms: Abdominal pain (crampy) Contributing factors: Other (regular marijuana use). No: Sick contact, Bad food, Travel, Recent antibiotics, Alcohol use, Anticoagulated, Diabetes Improved by: Vomiting Worsened by: Eating Similar symptoms before: Diagnosis (chronic vomiting, no dx. poss Cannabinoid- induced hyperemesis) Recently seen: Not recently seen - Additonal information Additional information: well known to the ED for same. 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 : Kidney stones HEENT: None Psych: Anxiety Musculoskeletal: Osteoarthritis Derm: None - Past Surgical History Past Surgical History: Yes General: Colonoscopy, EGD - Present Medications Home Medications: Ambulatory Orders Medication Instructions Recorded Confirmed ALPRAZolam [Alprazolam] 0.5 mg PO BID PRN 04/02/18 04/02/18 LORazepam [Lorazepam] 1 mg PO .Q6-8H PRN 04/02/18 04/02/18 Omeprazole 20 mg PO DAILY PRN 04/02/18 04/02/18 Ondansetron [Ondansetron Odt] 8 mg SL Q8H PRN 04/02/18 04/02/18 Promethazine Supp [Phenergan Supp] 25 mg [place] Q6H PRN 04/02/18 04/02/18 Sucralfate 1 gm PO QID PRN 04/02/18 04/02/18 raNITIdine HCl [Ranitidine HCl] 150 mg PO DAILY 04/02/18 04/02/18 LORazepam [Ativan] 0.5 mg PO Q6H PRN #10 tablet 05/12/18 Ondansetron Odt [Zofran] 4 mg TL Q6H PRN #14 tablet 05/12/18 Promethazine Supp [Phenergan Supp] 25 mg [place] Q6HR PRN #7 supp 05/12/18 Ondansetron Odt [Zofran] 4 mg TL Q6H PRN #20 tablet 05/17/18 Promethazine Supp [Phenergan Supp] 25 mg [place] Q6H PRN #20 supp 05/17/18 - Allergies Allergies/Adverse Reactions: Allergies Allergy/AdvReac Type Severity Reaction Status Date / Time codeine [Codeine] Allergy Mild Nausea Verified 09/07/18 14:20 - Social History Does the pt smoke?: Yes Smoking Status: Current every day smoker Does the pt drink ETOH?: No Does the pt have substance abuse?: Yes - Immunizations Immunizations are current?: Yes - POLST Patient has POLST: No PD ED PE NORMAL - Vitals Vital signs reviewed: Yes - General General: Alert and oriented X 3, No acute distress, Well developed/nourished - HEENT HEENT: PERRL, Moist mucous membranes - Neck Neck: Supple, no meningeal sign - Cardiac Cardiac: RRR, Strong equal pulses - Respiratory Respiratory: No respiratory distress, Clear bilaterally - Abdomen Abdomen: Soft, Non tender, Non distended - Derm Derm: Warm and dry - Extremities Extremities: No edema - Neuro Neuro: Alert and oriented X 3 - Psych Psych: Normal mood, Normal affect Results - Vitals Vitals: Vital Signs - 24 hr 09/07/18 09/07/18 09/07/18 14:17 16:01 17:37 Temperature 35.9 C L 36.6 C 37 C Heart Rate 83 74 79 Respiratory 22 16 16 Rate Blood Pressure 113/89 H 170/93 H 125/72 O2 Saturation 98 99 99 09/07/18 18:52 Temperature 36.5 C Heart Rate 79 Respiratory 12 Rate Blood Pressure 128/66 O2 Saturation 100 Oxygen O2 Source Room air - Labs Labs: Laboratory Tests 09/07/18 09/07/18 15:08 15:08 WBC 23.9 H RBC 4.84 Hgb 15.2 Hct 45.0 MCV 93.0 MCH 31.4 H MCHC 33.8 RDW 13.8 Plt Count 274 MPV 8.5 Neut # (Auto) 21.9 H Lymph # (Auto) 1.2 L [place] # (Auto) 0.7 Eos # (Auto) 0.0 Baso # (Auto) 0.1 Absolute Nucleated RBC 0.00 Nucleated RBC % 0.0 Manual Slide Review Indicated WBC Morphology 2+ TOXIC GRANULATION Platelet Estimate NORMAL (130-450,000) Platelet Morphology NORMAL APPEARANCE RBC Morph Micro Appear NORMAL APPEARANCE Sodium 141 Potassium 3.2 L Chloride 109 Carbon Dioxide 22 Anion Gap 10.0 BUN 13 Creatinine 0.6 Estimated GFR (MDRD) 106 Glucose 202 H Calcium 9.5 Total Bilirubin 0.8 AST 20 ALT 15 Alkaline Phosphatase 60 Total Protein 8.0 Albumin 4.5 Globulin 3.5 Albumin/Globulin Ratio 1.3 Lipase 26 PD MEDICAL DECISION MAKING - ED course Complexity details: reviewed old records, reviewed results, re-evaluated patient, considered differential, d/w patient ED course: 48-year-old female with chronic abdominal pain and vomiting. Feels better after IV fluids, Ativan, Phenergan and Zofran. Tolerating p.o. without difficulty. Request to go home at this time. Patient counseled regarding signs and symptoms for which I believe and urgent re-evaluation would be necessary. Patient with good understanding of and agreement to plan and is comfortable going home at this time This document was made in part using voice recognition software. While efforts are made to proofread this document, sound alike and grammatical errors may occur. Departure - Departure Disposition: 01 Home, Self Care Clinical Impression: Vomiting Qualifiers: Vomiting type: unspecified Vomiting Intractability: non-intractable Nausea presence: with nausea Qualified Code(s): R11.2 - Nausea with vomiting, unspecified Condition: Good Instructions: ED Nausea Vomiting Follow-Up: Kerrie Ruiz PA [Primary Care Provider] - Within 1 week Comments: Return if you worsen. Follow-up with your doctor for further care. Drink plenty of fluids and rest. You should try avoiding marijuana for several months to see if this helps your symptoms. Discharge Date/Time: 09/07/18 19:10
[2018-09-07 15:28] LABS: BASOPHILS # (AUTO) 0.1 10^3/uL (0.0-0.1); BASOPHILS % (AUTO) 0.3 %; HGB - HEMOGLOBIN 15.2 g/dL (12.0-16.0); LYMPHOCYTES # (AUTO) 1.2 10^3/uL (1.5-3.5); MEAN CORPUSCULAR HEMOGLOBIN 31.4 pg (27.0-31.0); MEAN CORPUSCULAR HGB CONC 33.8 g/dL (32.0-36.0); MEAN PLATELET VOLUME 8.5 fL (7.9-10.8); MONOCYTES # (AUTO) 0.7 10^3/uL (0.0-1.0); MONOCYTES % (AUTO) 3.1 %; NEUTROPHILS # (AUTO) 21.9 10^3/uL (1.5-6.6); NEUTROPHILS % (AUTO) 91.6 %; PLT - PLATELET COUNT 274 10^3/uL (130-450); RED BLOOD COUNT 4.84 10^6/uL (4.20-5.40); RED CELL DISTRIBUTION WIDTH 13.8 % (12.0-15.0); WHITE BLOOD COUNT 23.9 x10^3/uL (4.8-10.8)
[2018-09-07 15:42] LABS: ALBUMIN 4.5 g/dL (3.2-5.5); ALBUMIN/GLOBULIN RATIO 1.3 (1.0-2.2); BILIRUBIN,TOTAL 0.8 mg/dL (0.2-1.0); CALCIUM 9.5 mg/dL (8.5-10.3); CREATININE 0.6 mg/dL (0.4-1.0)
[2018-09-07 17:02] LABS: PLATELET ESTIMATE, MANUAL NORMAL (130-450,000) (NORMAL); PLATELET MORPHOLOGY NORMAL APPEARANCE (NORMAL); RBC MORPHOLOGY (MULTIPLE) NORMAL APPEARANCE (NORMAL)
[2018-09-07 18:53] VITALS: BP 128/66
== END 2018-09-07 19:10 | disposition home or self-care (01) ==
LOC: ED 14:12
DX: R11.2 Nausea with vomiting, unspecified (principal); F17.200 Nicotine dependence, unspecified, uncomplicated; F12.90 Cannabis use, unspecified, uncomplicated
CPT/HCPCS: 36415; 80053; 83690; 85025; 96365; 96375; 96376; 99283; J2060; J7040

== ENCOUNTER 2018-09-09 10:21 | Emergency (ER) | payer MEDICAID ==
[2018-09-09 11:28] LABS: BASOPHILS # (AUTO) 0.2 10^3/uL (0.0-0.1); BASOPHILS % (AUTO) 0.9 %; EOSINOPHILS % (AUTO) 0.1 %; HGB - HEMOGLOBIN 14.9 g/dL (12.0-16.0); LYMPHOCYTES # (AUTO) 2.6 10^3/uL (1.5-3.5); LYMPHOCYTES % (AUTO) 15.9 %; MEAN CORPUSCULAR HEMOGLOBIN 31.5 pg (27.0-31.0); MEAN CORPUSCULAR HGB CONC 33.8 g/dL (32.0-36.0); MEAN CORPUSCULAR VOLUME 93.2 fL (81.0-99.0); MEAN PLATELET VOLUME 8.3 fL (7.9-10.8); MONOCYTES # (AUTO) 0.8 10^3/uL (0.0-1.0); MONOCYTES % (AUTO) 4.8 %; NEUTROPHILS # (AUTO) 12.8 10^3/uL (1.5-6.6); NEUTROPHILS % (AUTO) 78.3 %; PLT - PLATELET COUNT 256 10^3/uL (130-450); RED BLOOD COUNT 4.72 10^6/uL (4.20-5.40); RED CELL DISTRIBUTION WIDTH 13.7 % (12.0-15.0); WHITE BLOOD COUNT 16.4 x10^3/uL (4.8-10.8)
[2018-09-09 11:39] LABS: ALBUMIN 4.5 g/dL (3.2-5.5); ALBUMIN/GLOBULIN RATIO 1.4 (1.0-2.2); BILIRUBIN,TOTAL 0.7 mg/dL (0.2-1.0); CREATININE 0.7 mg/dL (0.4-1.0); TOTAL PROTEIN 7.8 g/dL (6.7-8.2)
[2018-09-09] MEDS ORDERED: SODIUM CHLORIDE 0.9% 1,000 ML IV ONE (12:24)
[2018-09-09] MEDS ORDERED: ONDANSETRON 4 MG/2 ML VIAL IVP STA (12:24)
[2018-09-09] MEDS ORDERED: PROMETHAZINE INJ 25 MG in SODIUM CHLORIDE 0.9% 50 ML IV STA (12:25)
[2018-09-09] MEDS ORDERED: LORazepam 2 MG/ML VIAL IVP STA (12:25)
--- NOTE | 2018-09-09 12:26 | ED Physician Documentation ---
PD HPI ABD PAIN - Stated complaint Stated Complaint: VOMITING - Chief complaint Chief Complaint: Abd Pain - History obtained from History obtained from: Patient - History of Present Illness Timing - onset: Other (This is a 48-year-old woman With episodic recurrent abdominal pain and vomiting. This is an ongoing issue that she has had for the last 20 years with negative thorough workups. She does smoke marijuana daily although she is tried quitting in the past up for a month at a time without relief. She is been on control lately without placebo pills and that has been helpful, it is related to her cycle. She missed 5 days of control last week and that is which she thinks caused this flare with lower abdominal cramping, vomiting, and slight diarrhea. She took Ativan and Phenergan at home this morning without relief.) Review of Systems Ten Systems: 10 systems reviewed and negative Constitutional: reports: Fatigue. 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 : Kidney stones HEENT: None Psych: Anxiety Musculoskeletal: Osteoarthritis Derm: None - Past Surgical History Past Surgical History: Yes General: Colonoscopy, EGD - Present Medications Home Medications: Ambulatory Orders Medication Instructions Recorded Confirmed RX: ALPRAZolam [Alprazolam] 0.5 mg PO BID PRN 04/02/18 04/02/18 RX: LORazepam [Lorazepam] 1 mg PO .Q6-8H PRN 04/02/18 04/02/18 RX: Omeprazole 20 mg PO DAILY PRN 04/02/18 04/02/18 RX: Ondansetron [Ondansetron Odt] 8 mg SL Q8H PRN 04/02/18 04/02/18 RX: Promethazine Supp [Phenergan 25 mg [place] Q6H PRN 04/02/18 04/02/18 Supp] RX: Sucralfate 1 gm PO QID PRN 04/02/18 04/02/18 RX: raNITIdine HCl [Ranitidine HCl] 150 mg PO DAILY 04/02/18 04/02/18 LORazepam [Ativan] 0.5 mg PO Q6H PRN #10 tablet 05/12/18 Ondansetron Odt [Zofran] 4 mg TL Q6H PRN #14 tablet 05/12/18 Promethazine Supp [Phenergan Supp] 25 mg SD Q6HR PRN #7 supp 05/12/18 Ondansetron Odt [Zofran] 4 mg TL Q6H PRN #20 tablet 05/17/18 Promethazine Supp [Phenergan Supp] 25 mg [place] Q6H PRN #20 supp 05/17/18 Lorazepam [Ativan] 1 mg PO TID PRN #10 tablet 09/09/18 Promethazine [Phenergan] 25 mg PO Q6H PRN #10 tab 09/09/18 - Allergies Allergies/Adverse Reactions: Allergies Allergy/AdvReac Type Severity Reaction Status Date / Time codeine [Codeine] Allergy Mild Nausea Verified 09/09/18 10:28 - Social History Does the pt smoke?: Yes Smoking Status: Current every day smoker Does the pt drink ETOH?: No Does the pt have substance abuse?: Yes - Immunizations Immunizations are current?: Yes - POLST Patient has POLST: No PD ED PE NORMAL - Vitals Vital signs reviewed: Yes - General General: Alert and oriented X 3, No acute distress - Respiratory Respiratory: No respiratory distress, Clear bilaterally - Abdomen Abdomen: Normal bowel sounds, Soft, Non tender - Derm Derm: No rash - Neuro Neuro: Alert and oriented X 3, Normal speech Results - Vitals Vitals: Vital Signs - 24 hr 09/09/18 09/09/18 10:25 13:40 Temperature 37.3 C Heart Rate 71 69 Respiratory 16 18 Rate Blood Pressure 155/74 H 146/90 H O2 Saturation 98 97 Oxygen O2 Source Room air - Labs Labs: Laboratory Tests 09/09/18 09/09/18 11:19 11:19 WBC 16.4 H RBC 4.72 Hgb 14.9 Hct 44.0 MCV 93.2 MCH 31.5 H MCHC 33.8 RDW 13.7 Plt Count 256 MPV 8.3 Neut # (Auto) 12.8 H Lymph # (Auto) 2.6 [place] # (Auto) 0.8 Eos # (Auto) 0.0 Baso # (Auto) 0.2 H Absolute Nucleated RBC 0.00 Nucleated RBC % 0.0 Sodium 137 Potassium 2.8 L Chloride 97 L Carbon Dioxide 27 Anion Gap 13.0 BUN 11 Creatinine 0.7 Estimated GFR (MDRD) 89 Glucose 129 H Calcium 8.9 Total Bilirubin 0.7 AST 21 ALT 17 Alkaline Phosphatase 57 Total Protein 7.8 Albumin 4.5 Globulin 3.3 Albumin/Globulin Ratio 1.4 Lipase 84 H PD MEDICAL DECISION MAKING - ED course ED course: This is a 48-year-old woman with a recurrent bout of abdominal pain and vomiting which was treated stepwise with medications here. There is no tenderness on examination. Departure - Departure Disposition: 01 Home, Self Care Clinical Impression: Cyclic vomiting syndrome Condition: Good Record reviewed to determine appropriate education?: Yes Instructions: ED Abdominal Pain Unkn Cause Prescriptions: Lorazepam [Ativan] 1 mg PO TID PRN #10 tablet PRN Reason: Anxiety Promethazine [Phenergan] 25 mg PO Q6H PRN #10 tab PRN Reason: Nausea / Vomiting Comments: Call your doctor to arrange a follow-up appointment, make the next available appointment. In the interim, return anytime if worse or if new symptoms develop. Your blood pressure was elevated today on check into the emergency department. This does not mean that you have hypertension, it is a common phenomenon to come to the emergency department and have elevated blood pressure. I recommend that you see your primary care physician within the week to have it rechecked when you are feeling better. Discharge Date/Time: 09/09/18 15:00
[2018-09-09 13:03] LABS: CALCIUM 8.9 mg/dL (8.5-10.3)
[2018-09-09] MEDS ORDERED: POTASSIUM BICARB 25 MEQ TABLET PO STA (13:11)
[2018-09-09] MEDS ORDERED: LIDOCAINE VISCOUS 2% 15 ML UDC MM STA (13:20)
[2018-09-09] MEDS ORDERED: MAG HYDROX/AL HYDROX/SIMETH 30 ML UDC PO STA (13:20)
[2018-09-09 13:41] VITALS: BP 146/90
[2018-09-09] MEDS ORDERED: METOCLOPRAMIDE 10 MG/2 ML VIAL IVP STA (14:50)
== END 2018-09-09 15:00 | disposition home or self-care (01) ==
LOC: ED 10:21
DX: K31.89 Other diseases of stomach and duodenum (principal); R11.11 Vomiting without nausea; R03.0 Elevated blood-pressure reading, without diagnosis of hypertension; F12.90 Cannabis use, unspecified, uncomplicated; K21.9 Gastro-esophageal reflux disease without esophagitis; F17.200 Nicotine dependence, unspecified, uncomplicated; Z87.11 Personal history of peptic ulcer disease
CPT/HCPCS: 36415; 80053; 83690; 85025; 96361; 96365; 96375; 99283; A9270; J2060; J2765; J7040

== ENCOUNTER 2018-09-15 12:05 | Emergency (ER) | payer MEDICAID ==
[2018-09-15 12:17] VITALS: BP 116/75
[2018-09-15] MEDS ORDERED: BUPIVACAINE 0.5% PF 10 ML VIAL SUBQ STA (15:44)
--- NOTE | 2018-09-15 15:46 | ED Physician Documentation ---
History of Present Illness - Stated complaint Stated Complaint: FEMALE - Chief complaint Chief Complaint: General - History obtained from History obtained from: Patient - History of Present Illness Timing: How many days ago (2) - Additonal information Additional information: 48-year-old female has a sudden onset of rectal pain with a bulging mass that is very tender. She has never had this happen to her previously she has tried to reduce this its firm and it will not reduce. 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 : Kidney stones HEENT: None Psych: Anxiety Musculoskeletal: Osteoarthritis Derm: None - Past Surgical History Past Surgical History: Yes General: Colonoscopy, EGD - Present Medications Home Medications: Ambulatory Orders Medication Instructions Recorded Confirmed ALPRAZolam [Alprazolam] 0.5 mg PO BID PRN 04/02/18 04/02/18 LORazepam [Lorazepam] 1 mg PO .Q6-8H PRN 04/02/18 04/02/18 Omeprazole 20 mg PO DAILY PRN 04/02/18 04/02/18 Ondansetron [Ondansetron Odt] 8 mg SL Q8H PRN 04/02/18 04/02/18 Promethazine Supp [Phenergan Supp] 25 mg [place] Q6H PRN 04/02/18 04/02/18 Sucralfate 1 gm PO QID PRN 04/02/18 04/02/18 raNITIdine HCl [Ranitidine HCl] 150 mg PO DAILY 04/02/18 04/02/18 LORazepam [Ativan] 0.5 mg PO Q6H PRN #10 tablet 05/12/18 Ondansetron Odt [Zofran] 4 mg TL Q6H PRN #14 tablet 05/12/18 Promethazine Supp [Phenergan Supp] 25 mg [place] Q6HR PRN #7 supp 05/12/18 Ondansetron Odt [Zofran] 4 mg TL Q6H PRN #20 tablet 05/17/18 Promethazine Supp [Phenergan Supp] 25 mg [place] Q6H PRN #20 supp 05/17/18 Lorazepam [Ativan] 1 mg PO TID PRN #10 tablet 09/09/18 Promethazine [Phenergan] 25 mg PO Q6H PRN #10 tab 09/09/18 - Allergies Allergies/Adverse Reactions: Allergies Allergy/AdvReac Type Severity Reaction Status Date / Time codeine [Codeine] Allergy Mild Nausea Verified 09/15/18 12:17 - Social History Does the pt smoke?: Yes Smoking Status: Current every day smoker Does the pt drink ETOH?: No Does the pt have substance abuse?: Yes - Immunizations Immunizations are current?: Yes - POLST Patient has POLST: No PD ED PE NORMAL - Vitals Vital signs reviewed: Yes (normal ) - General General: Alert and oriented X 3, No acute distress, Well developed/nourished - HEENT HEENT: Atraumatic, PERRL, EOMI - Respiratory Respiratory: No respiratory distress - Rectal 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) - Derm Derm: Normal color, Warm and dry, No rash - Extremities Extremities: No deformity, No edema - Neuro Neuro: Alert and oriented X 3, chute feeder 2-12 intact, No motor deficit, No sensory deficit, Normal speech Eye Opening: Spontaneous Motor: Obeys Commands Verbal: Oriented GCS Score: 15 - Psych Psych: Normal mood, Normal affect Results - Vitals Vitals: Vital Signs - 24 hr 09/15/18 12:15 Temperature 36.5 C Heart Rate 72 Respiratory 16 Rate Blood Pressure 116/75 O2 Saturation 99 Oxygen O2 Source Room air Procedures - General procedure General procedure: Thrombosed hemorrhoid: With the use of Betadine the thrombosed hemorrhoid is cleansed it is infiltrated with 0.5% bupivacaine then draped in a sterile fashion and with a #15 blade an incision is made and with a curved Corin the clot is removed. Patient has immediate relief of pain. PD MEDICAL DECISION MAKING - ED course Complexity details: considered differential, d/w patient ED course: 48-year-old female with a thrombosed hemorrhoid less than 72 hours has successful clot removal and relief of pain. She is given instructions and care of hemorrhoids. Departure - Departure Disposition: 01 Home, Self Care Clinical Impression: Thrombosed external hemorrhoid Condition: Stable Instructions: ED Hemorrhoids, Hemorrhoids Thrombosed Follow-Up: Kerrie Ruiz PA [Primary Care Provider] -
== END 2018-09-15 16:19 | disposition home or self-care (01) ==
LOC: ED 12:05
DX: K64.5 Perianal venous thrombosis (principal); F17.200 Nicotine dependence, unspecified, uncomplicated
CPT/HCPCS: 46083; 99282; 99283

== ENCOUNTER 2018-09-21 19:55 | Emergency (ER) | payer MEDICAID ==
--- NOTE | 2018-09-21 20:21 | ED Physician Documentation ---
PD HPI NVD - Stated complaint Stated Complaint: VOM/DIAH/HEADACHE/ABD PX - Chief complaint Chief Complaint: Abd Pain - History obtained from History obtained from: Patient, Family - History of Present Illness Timing - onset: How many days ago (2) Timing - duration: Days (2) Timing - details: Gradual onset, Still present Associated symptoms: Abdominal pain, Dizzy, Near syncope / syncope, Loss of appetite Contributing factors: Other (hx of cyclical vomiting) Improved by: Vomiting Similar symptoms before: Diagnosis (cyclical vomiting) Recently seen: Emergency Dept - Additonal information Additional information: 48-year-old female well-known to the emergency department for history of cyclical vomiting has developed cyclical vomiting again and over the past 2 days she has not been able to hold anything down. She has some abdominal pain associated with this she has had some diarrhea with this as well. She describes some period of months that she was symptom-free and she has now developed symptoms again over the past month. Her primary care physician wants her to try some sumatriptan with her symptoms. She was seen in the emergency department recently for thrombosed hemorrhoid she still healing up from that but feels much improved. Review of Systems Constitutional: reports: Chills, Fatigue. denies: Fever Eyes: denies: Decreased vision Ears: denies: Ear pain Nose: denies: Rhinorrhea / runny nose, Congestion Throat: denies: Sore throat Cardiac: denies: Chest pain / pressure, Palpitations Respiratory: denies: Dyspnea, Cough GI: reports: Abdominal Pain, Nausea, Vomiting, Diarrhea : denies: Dysuria, Frequency Skin: denies: Rash Musculoskeletal: denies: Neck pain, Back pain, Extremity pain Neurologic: denies: Generalized weakness, Focal weakness, Numbness PD PAST MEDICAL HISTORY - Past Medical History Cardiovascular: None Respiratory: None Neuro: None Endocrine/Autoimmune: None GI: GERD, GI bleed, Ulcers, Chronic diarrhea, 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 : Kidney stones HEENT: None Psych: Anxiety Musculoskeletal: Osteoarthritis Derm: None - Past Surgical History Past Surgical History: Yes General: Colonoscopy, EGD - Present Medications Home Medications: Ambulatory Orders Medication Instructions Recorded Confirmed ALPRAZolam [Alprazolam] 0.5 mg PO BID PRN 04/02/18 04/02/18 LORazepam [Lorazepam] 1 mg PO .Q6-8H PRN 04/02/18 04/02/18 Omeprazole 20 mg PO DAILY PRN 04/02/18 04/02/18 Ondansetron [Ondansetron Odt] 8 mg SL Q8H PRN 04/02/18 04/02/18 Promethazine Supp [Phenergan Supp] 25 mg [place] Q6H PRN 04/02/18 04/02/18 Sucralfate 1 gm PO QID PRN 04/02/18 04/02/18 raNITIdine HCl [Ranitidine HCl] 150 mg PO DAILY 04/02/18 04/02/18 LORazepam [Ativan] 0.5 mg PO Q6H PRN #10 tablet 05/12/18 Ondansetron Odt [Zofran] 4 mg TL Q6H PRN #14 tablet 05/12/18 Promethazine Supp [Phenergan Supp] 25 mg [place] Q6HR PRN #7 supp 05/12/18 Ondansetron Odt [Zofran] 4 mg TL Q6H PRN #20 tablet 05/17/18 Promethazine Supp [Phenergan Supp] 25 mg [place] Q6H PRN #20 supp 05/17/18 Lorazepam [Ativan] 1 mg PO TID PRN #10 tablet 09/09/18 Promethazine [Phenergan] 25 mg PO Q6H PRN #10 tab 09/09/18 - Allergies Allergies/Adverse Reactions: Allergies Allergy/AdvReac Type Severity Reaction Status Date / Time codeine [Codeine] Allergy Mild Nausea Verified 09/21/18 20:13 - Social History Does the pt smoke?: Yes Smoking Status: Current every day smoker Does the pt drink ETOH?: No Does the pt have substance abuse?: Yes - Immunizations Immunizations are current?: Yes - POLST Patient has POLST: No PD ED PE NORMAL - Vitals Vital signs reviewed: Yes (hypertensive) - General General: Alert and oriented X 3, Well developed/nourished, Other (48 y/o female curled in the position with an emesis bag appear miserable ) - HEENT HEENT: Atraumatic, PERRL, EOMI, Other (dry mucous membranes ) - Neck Neck: Supple, no meningeal sign, No bony TTP - Cardiac Cardiac: RRR, No murmur - Respiratory Respiratory: No respiratory distress, Clear bilaterally - Abdomen Abdomen: Soft, Other (mild general tenderness no guarding ) - Back Back: No CVA TTP, No spinal TTP - Derm Derm: Normal color, Warm and dry, No rash - Extremities Extremities: No deformity, No edema - Neuro Neuro: Alert and oriented X 3, marketing officer 2-12 intact, No motor deficit, No sensory deficit, Normal speech Eye Opening: Spontaneous Motor: Obeys Commands Verbal: Oriented GCS Score: 15 - Psych Psych: Normal mood, Normal affect Results - Vitals Vitals: Vital Signs - 24 hr 09/21/18 20:09 Temperature 36.8 C Heart Rate 78 Respiratory 20 Rate Blood Pressure 146/83 H O2 Saturation 97 Oxygen O2 Source Room air - Labs Labs: Laboratory Tests 09/21/18 09/21/18 09/22/18 20:28 20:28 01:34 WBC 13.5 H RBC 4.52 Hgb 14.1 Hct 42.1 MCV 93.2 MCH 31.2 H MCHC 33.4 RDW 13.7 Plt Count 284 MPV 7.8 L Neut # (Auto) 11.5 H Lymph # (Auto) 1.5 [place] # (Auto) 0.4 Eos # (Auto) 0.0 Baso # (Auto) 0.1 Absolute Nucleated RBC 0.00 Nucleated RBC % 0.0 Sodium 138 Potassium 3.2 L Chloride 107 Carbon Dioxide 18 L Anion Gap 13.0 BUN 11 Creatinine 0.6 Estimated GFR (MDRD) 106 Glucose 139 H Calcium 8.9 Total Bilirubin 0.8 AST 16 ALT 12 Alkaline Phosphatase 52 Total Protein 7.2 Albumin 3.9 Globulin 3.3 Albumin/Globulin Ratio 1.2 Lipase 25 Urine Color YELLOW Urine Clarity CLEAR Urine pH 7.0 Ur Specific [place] 1.020 Urine Protein NEGATIVE Urine Glucose (UA) NEGATIVE Urine Ketones >=80 H Urine Occult Blood NEGATIVE Urine Nitrite NEGATIVE Urine Bilirubin NEGATIVE Urine Urobilinogen 0.2 (NORMAL) Ur Leukocyte Esterase NEGATIVE Ur Microscopic Review NOT INDICATED Urine Culture Comments NOT INDICATED Procedures - IVC sono (time) 2024 Bedside IVC sono: IVC measures (cm) (0.97), IVC collapsed c insp (cm) (complete), Dehydration (est 1-2 liter deficit) PD MEDICAL DECISION MAKING - ED course Complexity details: reviewed old records, reviewed results, re-evaluated patient, considered differential, d/w patient, d/w family ED course: 48-year-old female with a history of cyclical vomiting has symptoms recurrent on her and she is dehydrated on interrogation of the inferior vena cava. She is administered saline a liter bolus and 6 mg of sumatriptan subcutaneously.The sumatriptan does not seem to have much effect and the patient is administered Ativan 1 mg and Phenergan 25 mg intravenously. She has about a 50% reduction in her symptoms with this and she is administered Haldol 2 mg intravenously and she can definitely tell further improvement. She received a second liter of saline and is able to produce a urine specimen feels well enough to go home. Departure - Departure Disposition: Home, Self Care Clinical Impression: Cyclic vomiting syndrome Qualifiers: Vomiting Intractability: non-intractable Nausea presence: with nausea Qualified Code(s): G43.A0 - Cyclical vomiting, not intractable Condition: Stable Instructions: ED Nausea Vomiting Follow-Up: Kerrie Ruiz PA [Primary Care Provider] - Comments: Today here in the emergency department it appears you did respond to the Haldol as far as further improvement in your symptoms. It would be reasonable to request this medication in your treatment in the future.
[2018-09-21] MEDS ORDERED: SUMAtriptan 6 MG/0.5 ML VIAL SUBQ STA (20:30)
[2018-09-21] MEDS ORDERED: SODIUM CHLORIDE 0.9% 1,000 ML IV ONE ×2 (20:30→22:26)
[2018-09-21 20:34] LABS: BASOPHILS # (AUTO) 0.1 10^3/uL (0.0-0.1); BASOPHILS % (AUTO) 0.5 %; EOSINOPHILS % (AUTO) 0.1 %; HGB - HEMOGLOBIN 14.1 g/dL (12.0-16.0); LYMPHOCYTES # (AUTO) 1.5 10^3/uL (1.5-3.5); MEAN CORPUSCULAR HEMOGLOBIN 31.2 pg (27.0-31.0); MEAN CORPUSCULAR HGB CONC 33.4 g/dL (32.0-36.0); MEAN CORPUSCULAR VOLUME 93.2 fL (81.0-99.0); MEAN PLATELET VOLUME 7.8 fL (7.9-10.8); MONOCYTES # (AUTO) 0.4 10^3/uL (0.0-1.0); MONOCYTES % (AUTO) 2.8 %; NEUTROPHILS # (AUTO) 11.5 10^3/uL (1.5-6.6); NEUTROPHILS % (AUTO) 85.6 %; PLT - PLATELET COUNT 284 10^3/uL (130-450); RED BLOOD COUNT 4.52 10^6/uL (4.20-5.40); RED CELL DISTRIBUTION WIDTH 13.7 % (12.0-15.0); WHITE BLOOD COUNT 13.5 x10^3/uL (4.8-10.8)
[2018-09-21 20:46] LABS: ALBUMIN 3.9 g/dL (3.2-5.5); ALBUMIN/GLOBULIN RATIO 1.2 (1.0-2.2); BILIRUBIN,TOTAL 0.8 mg/dL (0.2-1.0); CALCIUM 8.9 mg/dL (8.5-10.3); CREATININE 0.6 mg/dL (0.4-1.0); TOTAL PROTEIN 7.2 g/dL (6.7-8.2)
[2018-09-21] MEDS ORDERED: POTASSIUM BICARB 25 MEQ TABLET PO STA (21:00)
[2018-09-21] MEDS ORDERED: PROMETHAZINE INJ 25 MG in SODIUM CHLORIDE 0.9% 50 ML IV STA (21:02)
[2018-09-21] MEDS ORDERED: LORazepam 2 MG/ML VIAL IVP STA (21:02)
[2018-09-21] MEDS ORDERED: HALOPERIDOL 5 MG/ML VIAL IVP ONE (22:05)
[2018-09-22] MEDS ORDERED: MAG HYDROX/AL HYDROX/SIMETH 30 ML UDC PO STA (00:04)
[2018-09-22] MEDS ORDERED: HALOPERIDOL 5 MG/ML VIAL IVP STA (01:32)
[2018-09-22 01:37] LABS: BILIRUBIN,URINE NEGATIVE (NEGATIVE); GLUCOSE, URINE (UA) NEGATIVE (NEGATIVE); KETONES,URINE (UA) >=80 mg/dL (NEGATIVE); LEUKOCYTE ESTERASE, URINE NEGATIVE (NEGATIVE); NITRITE,URINE NEGATIVE (NEGATIVE); OCCULT BLOOD,URINE NEGATIVE (NEGATIVE); PROTEIN,URINE NEGATIVE (NEGATIVE); UROBILINOGEN,URINE 0.2 (NORMAL) E.U./dL (NORMAL)
[2018-09-22 01:38] LABS: CLARITY,URINE CLEAR (CLEAR)
[2018-09-22 02:05] VITALS: BP 115/77
== END 2018-09-22 02:05 | disposition home or self-care (01) ==
LOC: ED 19:55
DX: G43.A0 Cyclical vomiting, in migraine, not intractable (principal); E86.0 Dehydration
CPT/HCPCS: 36415; 80053; 81003; 83690; 85025; 96361; 96365; 96372; 96375; 96376; 99283; A9270; J2060; J7040; 81001; 87086

== ENCOUNTER 2018-09-26 15:20 | Emergency (ER) | payer MEDICAID ==
[2018-09-26 16:27] LABS: BASOPHILS # (AUTO) 0.1 10^3/uL (0.0-0.1); BASOPHILS % (AUTO) 0.6 %; EOSINOPHILS # (AUTO) 0.1 10^3/uL (0.0-0.7); EOSINOPHILS % (AUTO) 1.2 %; HGB - HEMOGLOBIN 14.5 g/dL (12.0-16.0); LYMPHOCYTES # (AUTO) 1.8 10^3/uL (1.5-3.5); LYMPHOCYTES % (AUTO) 20.4 %; MEAN CORPUSCULAR HEMOGLOBIN 31.5 pg (27.0-31.0); MEAN CORPUSCULAR HGB CONC 33.8 g/dL (32.0-36.0); MEAN CORPUSCULAR VOLUME 93.2 fL (81.0-99.0); MEAN PLATELET VOLUME 7.6 fL (7.9-10.8); MONOCYTES # (AUTO) 0.4 10^3/uL (0.0-1.0); MONOCYTES % (AUTO) 4.8 %; NEUTROPHILS # (AUTO) 6.5 10^3/uL (1.5-6.6); PLT - PLATELET COUNT 293 10^3/uL (130-450); RED BLOOD COUNT 4.59 10^6/uL (4.20-5.40); WHITE BLOOD COUNT 8.9 x10^3/uL (4.8-10.8)
[2018-09-26 16:41] LABS: ALBUMIN 4.1 g/dL (3.2-5.5); ALBUMIN/GLOBULIN RATIO 1.2 (1.0-2.2); BILIRUBIN,TOTAL 0.6 mg/dL (0.2-1.0); CALCIUM 8.8 mg/dL (8.5-10.3); CREATININE 0.6 mg/dL (0.4-1.0); TOTAL PROTEIN 7.4 g/dL (6.7-8.2)
[2018-09-26] MEDS ORDERED: SODIUM CHLORIDE 0.9% 1,000 ML IV ONE (16:41)
[2018-09-26] MEDS ORDERED: ONDANSETRON 4 MG/2 ML VIAL IVP STA (16:41)
--- NOTE | 2018-09-26 16:46 | ED Physician Documentation ---
History of Present Illness - Stated complaint Stated Complaint: VOMITING - Chief complaint Chief Complaint: Abd Pain - Additonal information Additional information: 48-year-old female with a history of cyclic vomiting presents [facility] with her typical nausea vomiting and abdominal cramps which were not controlled with her home medications. The patient is a daily marijuana smoker at least twice daily. The patient denies any focal area of abdominal pain. No known triggering factors. No other associated symptoms.Symptoms are described as severe Review of Systems Constitutional: denies: Fever, Chills Eyes: denies: Discharge Ears: denies: Ear pain Nose: denies: Congestion Throat: denies: Sore throat Cardiac: denies: Chest pain / pressure Respiratory: denies: Cough GI: reports: Abdominal Pain, Nausea, Vomiting : denies: Dysuria Skin: denies: Rash Musculoskeletal: denies: Neck pain Neurologic: denies: Generalized weakness Immunocompromised: denies: Chemotherapy PD PAST MEDICAL HISTORY - Past Medical History Cardiovascular: None Respiratory: None Neuro: None Endocrine/Autoimmune: None GI: GERD, GI bleed, Ulcers, Chronic diarrhea, Other 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 : Kidney stones HEENT: None Psych: Anxiety Musculoskeletal: Osteoarthritis Derm: None - Past Surgical History Past Surgical History: Yes General: Colonoscopy, EGD - Present Medications Home Medications: Ambulatory Orders Medication Instructions Recorded Confirmed ALPRAZolam [Alprazolam] 0.5 mg PO BID PRN 04/02/18 04/02/18 LORazepam [Lorazepam] 1 mg PO .Q6-8H PRN 04/02/18 04/02/18 Omeprazole 20 mg PO DAILY PRN 04/02/18 04/02/18 Ondansetron [Ondansetron Odt] 8 mg SL Q8H PRN 04/02/18 04/02/18 Promethazine Supp [Phenergan Supp] 25 mg DC Q6H PRN 04/02/18 04/02/18 Sucralfate 1 gm PO QID PRN 04/02/18 04/02/18 raNITIdine HCl [Ranitidine HCl] 150 mg PO DAILY 04/02/18 04/02/18 LORazepam [Ativan] 0.5 mg PO Q6H PRN #10 tablet 05/12/18 Ondansetron Odt [Zofran] 4 mg TL Q6H PRN #14 tablet 05/12/18 Promethazine Supp [Phenergan Supp] 25 mg DC Q6HR PRN #7 supp 05/12/18 Ondansetron Odt [Zofran] 4 mg TL Q6H PRN #20 tablet 05/17/18 Promethazine Supp [Phenergan Supp] 25 mg DC Q6H PRN #20 supp 05/17/18 Lorazepam [Ativan] 1 mg PO TID PRN #10 tablet 09/09/18 Promethazine [Phenergan] 25 mg PO Q6H PRN #10 tab 09/09/18 - Allergies Allergies/Adverse Reactions: Allergies Allergy/AdvReac Type Severity Reaction Status Date / Time codeine [Codeine] Allergy Mild Nausea Verified 09/26/18 16:09 - Social History Does the pt smoke?: Yes Smoking Status: Current every day smoker Does the pt drink ETOH?: No Does the pt have substance abuse?: Yes - Immunizations Immunizations are current?: Yes - POLST Patient has POLST: No PD ED PE NORMAL - General General: Alert and oriented X 3 - HEENT HEENT: Atraumatic, PERRL, EOMI, Ears normal - Neck Neck: Supple, no meningeal sign - Cardiac Cardiac: RRR, Strong equal pulses - Respiratory Respiratory: No respiratory distress - Abdomen Abdomen: Soft, Non distended, Other (Generalized abdominal tenderness, no rebound or peritoneal signs) - Derm Derm: Normal color - Extremities Extremities: No deformity - Neuro Neuro: Alert and oriented X 3, Normal speech - Psych Psych: Normal mood Results - Vitals Vitals: Vital Signs - 24 hr 09/26/18 16:05 Temperature 36 C L Heart Rate 77 Respiratory 16 Rate Blood Pressure 137/89 H O2 Saturation 96 Oxygen O2 Source Room air - Labs Labs: Laboratory Tests 09/26/18 09/26/18 16:21 16:21 WBC 8.9 RBC 4.59 Hgb 14.5 Hct 42.8 MCV 93.2 MCH 31.5 H MCHC 33.8 RDW 14.0 Plt Count 293 MPV 7.6 L Neut # (Auto) 6.5 Lymph # (Auto) 1.8 [place] # (Auto) 0.4 Eos # (Auto) 0.1 Baso # (Auto) 0.1 Absolute Nucleated RBC 0.00 Nucleated RBC % 0.0 Sodium 133 L Potassium 3.4 L Chloride 105 Carbon Dioxide 20 L Anion Gap 8.0 BUN 8 Creatinine 0.6 Estimated GFR (MDRD) 106 Glucose 110 H Calcium 8.8 Total Bilirubin 0.6 AST 15 ALT 12 Alkaline Phosphatase 58 Total Protein 7.4 Albumin 4.1 Globulin 3.3 Albumin/Globulin Ratio 1.2 Lipase 43 PD MEDICAL DECISION MAKING - ED course ED course: On reevaluation the patient is resting comfortably and her symptoms now are under control. The patient's symptoms may be secondary to heavy marijuana usage. I discussed with the patient but she does not feel that this is the etiology of her symptoms. The patient has no signs of abdominal pain on reevaluation. Presently, this appears to be the patient's typical condition. Since the symptoms are under control the patient appears appropriate for discharge and ongoing outpatient management. I discussed warning signs and recommended returning for any worsening or any concerns Departure - Departure Disposition: 01 Home, Self Care Clinical Impression: Abdominal cramping affecting Vomiting Qualifiers: Vomiting type: unspecified Vomiting Intractability: unspecified Nausea presence: with nausea Qualified Code(s): R11.2 - Nausea with vomiting, unspecified Condition: Good Instructions: Abdominal Pain, ED Nausea Vomiting Follow-Up: Kerrie Ruiz PA [Primary Care Provider] - Within 1 week (Please ask your primary to arrange for an outpatient gastroenterology evaluation) Comments: Please return to the emergency department for worsening symptoms or any concerns
[2018-09-26] MEDS ORDERED: HALOPERIDOL 5 MG/ML VIAL IVP ONE (16:52)
[2018-09-26] MEDS ORDERED: LORazepam 2 MG/ML VIAL IVP STA (16:53)
[2018-09-26 18:43] VITALS: BP 101/54
== END 2018-09-26 19:32 | disposition home or self-care (01) ==
LOC: ED 15:20
DX: R10.9 Unspecified abdominal pain (principal); R11.2 Nausea with vomiting, unspecified; F17.200 Nicotine dependence, unspecified, uncomplicated
CPT/HCPCS: 36415; 80053; 83690; 85025; 96361; 96374; 96375; 99283; J2060

== ENCOUNTER 2019-11-18 20:07 | Emergency (ER) | payer MEDICAID ==
[2019-11-18] MEDS ORDERED: SODIUM CHLORIDE 0.9% 1,000 ML IV ONE (20:24)
[2019-11-18] MEDS ORDERED: SODIUM CHLORIDE 0.9% 1,000 ML IV STA (20:24)
[2019-11-18] MEDS ORDERED: ONDANSETRON 4 MG/2 ML VIAL IVP STA (20:24)
[2019-11-18 20:50] LABS: BASOPHILS # (AUTO) 0.1 10^3/uL (0.0-0.1); BASOPHILS % (AUTO) 0.3 %; HGB - HEMOGLOBIN 14.1 g/dL (12.0-16.0); LYMPHOCYTES # (AUTO) 1.5 10^3/uL (1.5-3.5); LYMPHOCYTES % (AUTO) 10.1 %; MEAN CORPUSCULAR HEMOGLOBIN 31.8 pg (27.0-31.0); MEAN CORPUSCULAR HGB CONC 33.8 g/dL (32.0-36.0); MEAN CORPUSCULAR VOLUME 94.1 fL (81.0-99.0); MEAN PLATELET VOLUME 10.5 fL (7.9-10.8); MONOCYTES # (AUTO) 0.4 10^3/uL (0.0-1.0); MONOCYTES % (AUTO) 2.7 %; NEUTROPHILS % (AUTO) 86.4 %; PLT - PLATELET COUNT 238 10^3/uL (130-450); RED BLOOD COUNT 4.43 10^6/uL (4.20-5.40); RED CELL DISTRIBUTION WIDTH 13.6 % (12.0-15.0); WHITE BLOOD COUNT 15.1 x10^3/uL (4.8-10.8)
[2019-11-18 21:03] LABS: ALBUMIN/GLOBULIN RATIO 1.1 (1.0-2.2); BILIRUBIN,TOTAL 0.5 mg/dL (0.2-1.0); CALCIUM 8.7 mg/dL (8.5-10.3); CREATININE 0.7 mg/dL (0.4-1.0); TOTAL PROTEIN 7.5 g/dL (6.7-8.2)
[2019-11-18] MEDS ORDERED: LORazepam 2 MG/ML VIAL IVP STA (21:07)
--- NOTE | 2019-11-18 21:07 | ED Physician Documentation ---
History of Present Illness - Stated complaint Stated Complaint: N/V - Chief complaint Chief Complaint: Abd Pain - History obtained from History obtained from: Patient - History of Present Illness Timing: Today Pain level max: 7 Pain level now: 5 - Additonal information Additional information: Patient is a 49-year-old female who presents to the emergency department with generalized vomiting and abdominal pain for the past week. This is been an ongoing issue for many years for her. She relates that to her menses. Nothing makes it better or worse. She does use marijuana at home. No fevers. 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 : Kidney stones HEENT: None Psych: Anxiety Musculoskeletal: Osteoarthritis Derm: None - Past Surgical History Past Surgical History: Yes General: Colonoscopy, EGD - Present Medications Home Medications: Ambulatory Orders Medication Instructions Recorded Confirmed ALPRAZolam [Alprazolam] 0.5 mg PO BID PRN 04/02/18 04/02/18 LORazepam [Lorazepam] 1 mg PO .Q6-8H PRN 04/02/18 04/02/18 Omeprazole 20 mg PO DAILY PRN 04/02/18 04/02/18 Ondansetron [Ondansetron Odt] 8 mg SL Q8H PRN 04/02/18 04/02/18 Promethazine Supp [Phenergan Supp] 25 mg IA Q6H PRN 04/02/18 04/02/18 Sucralfate 1 gm PO QID PRN 04/02/18 04/02/18 raNITIdine HCL [Ranitidine HCl] 150 mg PO DAILY 04/02/18 04/02/18 LORazepam [Ativan] 0.5 mg PO Q6H PRN #10 tablet 05/12/18 Ondansetron Odt [Zofran] 4 mg TL Q6H PRN #14 tablet 05/12/18 Promethazine Supp [Phenergan Supp] 25 mg IA Q6HR PRN #7 supp 05/12/18 Ondansetron Odt [Zofran] 4 mg TL Q6H PRN #20 tablet 05/17/18 Promethazine Supp [Phenergan Supp] 25 mg IA Q6H PRN #20 supp 05/17/18 Lorazepam [Ativan] 1 mg PO TID PRN #10 tablet 09/09/18 Promethazine [Phenergan] 25 mg PO Q6H PRN #10 tab 09/09/18 Ondansetron Odt [Zofran] 4 mg TL Q6H PRN #10 tablet 11/18/19 Promethazine [Phenergan] 25 mg PO Q6H PRN #10 tab 11/18/19 - Allergies Allergies/Adverse Reactions: Allergies Allergy/AdvReac Type Severity Reaction Status Date / Time codeine [Codeine] Allergy Mild Nausea Verified 11/18/19 20:12 - Social History Does the pt smoke?: Yes Smoking Status: Current every day smoker Does the pt drink ETOH?: No Does the pt have substance abuse?: Yes - Immunizations Immunizations are current?: Yes - POLST Patient has POLST: No Results - Vitals Vitals: Vital Signs - 24 hr 11/18/19 11/18/19 20:09 22:51 Temperature 36.4 C L 38.2 C H Heart Rate 78 84 Respiratory 14 18 Rate Blood Pressure 148/119 H 140/64 H O2 Saturation 98 98 Oxygen O2 Source Room air - Labs Labs: Laboratory Tests 11/18/19 11/18/19 20:42 20:42 WBC 15.1 H RBC 4.43 Hgb 14.1 Hct 41.7 MCV 94.1 MCH 31.8 H MCHC 33.8 RDW 13.6 Plt Count 238 MPV 10.5 Neut # (Auto) 13.0 H Lymph # (Auto) 1.5 [place] # (Auto) 0.4 Eos # (Auto) 0.0 Baso # (Auto) 0.1 Absolute Nucleated RBC 0.00 Nucleated RBC % 0.0 Sodium 139 Potassium 3.5 Chloride 103 Carbon Dioxide 22 Anion Gap 14.0 H BUN 12 Creatinine 0.7 Estimated GFR (MDRD) 89 Glucose 134 H Calcium 8.7 Total Bilirubin 0.5 AST 20 ALT 18 Alkaline Phosphatase 59 Total Protein 7.5 Albumin 4.0 Globulin 3.5 Albumin/Globulin Ratio 1.1 Lipase 27 PD MEDICAL DECISION MAKING - ED course Complexity details: reviewed old records, reviewed results, re-evaluated patient, considered differential, d/w patient, d/w family ED course: Patient is well-appearing, nontoxic. Feels better after Zofran, Ativan, Phenergan and Haldol. Tolerating p.o. without difficulty. Did have a slight fever upon discharge from the emergency department. She does not want any imaging performed at this time. She does not want to stay in the hospital for observation. She will monitor her fever at home and monitor her symptoms there. She will return if she worsens. Patient counseled regarding signs and symptoms for which I believe and urgent re-evaluation would be necessary. Patient with good understanding of and agreement to plan and is comfortable going home at this time This document was made in part using voice recognition software. While efforts are made to proofread this document, sound alike and grammatical errors may occur. Departure - Departure Disposition: 01 Home, Self Care Clinical Impression: Vomiting Condition: Good Instructions: ED Nausea Vomiting Follow-Up: Kerrie Ruiz PA [Primary Care Provider] - Within 1 week Prescriptions: Ondansetron Odt [Zofran] 4 mg TL Q6H PRN #10 tablet PRN Reason: Nausea / Vomiting Promethazine [Phenergan] 25 mg PO Q6H PRN #10 tab PRN Reason: Nausea / Vomiting Comments: Return if you worsen. Follow-up with your doctor for further care. Drink plenty of fluids and rest
[2019-11-18] MEDS ORDERED: HALOPERIDOL 5 MG/ML VIAL IVP STA (22:32)
[2019-11-18 22:52] VITALS: BP 140/64
--- NOTE | 2019-11-22 23:46 | ED Physician Documentation ---
PD ED PE NORMAL - Vitals Vital signs reviewed: Yes - General General: Alert and oriented X 3, No acute distress, Well developed/nourished - HEENT HEENT: Moist mucous membranes - Neck Neck: Supple, no meningeal sign - Cardiac Cardiac: RRR, Strong equal pulses - Respiratory Respiratory: No respiratory distress, Clear bilaterally - Abdomen Abdomen: Soft, Other (Mild diffuse tenderness to palpation without peritoneal signs.) - Derm Derm: Warm and dry, No rash - Extremities Extremities: No edema - Neuro Neuro: Alert and oriented X 3 - Psych Psych: Normal mood, Normal affect
== END 2019-11-18 23:13 | disposition home or self-care (01) ==
LOC: ED 20:07
DX: R11.10 Vomiting, unspecified (principal); R50.9 Fever, unspecified; F17.200 Nicotine dependence, unspecified, uncomplicated
CPT/HCPCS: 36415; 80053; 83690; 85025; 96361; 96374; 96375; 99283; 99284; J2060

== ENCOUNTER 2020-03-03 09:00 | Emergency (ER) | payer MEDICAID ==
--- NOTE | 2020-03-03 09:43 | XRAY Report ---
PROCEDURE: Chest 2 View X-Ray INDICATIONS: Cough, chest discomfort TECHNIQUE: 2 view(s) of the chest. COMPARISON: None. FINDINGS: Surgical changes and devices: None. Lungs and pleura: No pleural effusions or pneumothorax. Lungs are clear. Mediastinum: Mediastinal contours are normal. Heart size is normal. Bones and chest wall: No suspicious bony abnormalities. Soft tissues appear unremarkable. IMPRESSION: No acute cardiopulmonary process demonstrated radiographically. Reviewed by: Yang Tracey MD on 03/03/2020 9:42 AM PDT Approved by: Yang Tracey MD on 03/03/2020 9:42 AM PDT Station ID: [id number]
[2020-03-03 10:08] LABS: BASOPHILS # (AUTO) 0.1 10^3/uL (0.0-0.1); BASOPHILS % (AUTO) 0.5 %; EOSINOPHILS % (AUTO) 0.1 %; HGB - HEMOGLOBIN 15.6 g/dL (12.0-16.0); LYMPHOCYTES # (AUTO) 3.3 10^3/uL (1.5-3.5); LYMPHOCYTES % (AUTO) 22.6 %; MEAN CORPUSCULAR HEMOGLOBIN 31.5 pg (27.0-31.0); MEAN CORPUSCULAR VOLUME 92.7 fL (81.0-99.0); MEAN PLATELET VOLUME 9.8 fL (7.9-10.8); MONOCYTES % (AUTO) 6.9 %; NEUTROPHILS # (AUTO) 10.2 10^3/uL (1.5-6.6); NEUTROPHILS % (AUTO) 69.4 %; PLT - PLATELET COUNT 286 10^3/uL (130-450); RED BLOOD COUNT 4.95 10^6/uL (4.20-5.40); RED CELL DISTRIBUTION WIDTH 13.3 % (12.0-15.0); WHITE BLOOD COUNT 14.7 x10^3/uL (4.8-10.8)
[2020-03-03 10:18] LABS: BILIRUBIN,URINE NEGATIVE (NEGATIVE); GLUCOSE, URINE (UA) NEGATIVE (NEGATIVE); KETONES,URINE (UA) NEGATIVE (NEGATIVE); LEUKOCYTE ESTERASE, URINE TRACE (NEGATIVE); NITRITE,URINE NEGATIVE (NEGATIVE); OCCULT BLOOD,URINE NEGATIVE (NEGATIVE); PH,URINE 8.5 PH (5.0-7.5); PROTEIN,URINE TRACE mg/dL (NEGATIVE); UROBILINOGEN,URINE 0.2 (NORMAL) E.U./dL (NORMAL)
[2020-03-03 10:22] LABS: ALBUMIN 4.7 g/dL (3.2-5.5); ALBUMIN/GLOBULIN RATIO 1.3 (1.0-2.2); BILIRUBIN,TOTAL 0.7 mg/dL (0.2-1.0); CALCIUM 9.5 mg/dL (8.5-10.3); CREATININE 0.7 mg/dL (0.4-1.0); TOTAL PROTEIN 8.2 g/dL (6.7-8.2)
[2020-03-03] MEDS ORDERED: DEXAMETHASONE 10 MG/ML VIAL IVP STA (10:24)
[2020-03-03] MEDS ORDERED: KETOROLAC 30 MG/ML VIAL IVP STA (10:24)
[2020-03-03] MEDS ORDERED: SODIUM CHLORIDE 0.9% 1,000 ML IV STA (10:24)
[2020-03-03 10:25] LABS: CLARITY,URINE CLOUDY (CLEAR)
--- NOTE | 2020-03-03 10:27 | ED Physician Documentation ---
PD HPI CHEST PAIN - Stated complaint Stated Complaint: VOMITING, DIFFICULTY BREATHING - Chief complaint Chief Complaint: General - History obtained from History obtained from: Patient - History of Present Illness Timing - onset: How many days ago (5) Timing - onset during: Rest Timing - duration: Days (5) Timing - details: Gradual onset, Still present Quality: Pressure, Sharp Location: Substernal, Left chest Improved by: Rest Worsened by: Inspiration, Palpation Associated symptoms: Shortness of air Similar symptoms before: Has not had sx before Recently seen: Not recently seen - Additional information Additional information: 49-year-old female with a history of cyclical vomiting has developed some chest pressure about 5 days ago and she has had some cough associated with this and some shortness of breath. She has not had these specific symptoms previously. She is does state that there is a constant pressure and it hurts to take a deep breath. She has not been wearing a mask much because she is usually at home or she is working outside. She has not been in any crowded areas she does not think she has exposure to COVID. Review of Systems Constitutional: reports: Myalgias, Fatigue. denies: Fever Eyes: denies: Decreased vision Ears: denies: Ear pain, Drainage/discharge Nose: denies: Rhinorrhea / runny nose, Congestion Throat: denies: Sore throat Cardiac: reports: Chest pain / pressure. 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 : Kidney stones HEENT: None Psych: Anxiety Musculoskeletal: Osteoarthritis Derm: None - Past Surgical History Past Surgical History: Yes General: Colonoscopy, EGD - Present Medications Home Medications: Ambulatory Orders Medication Instructions Recorded Confirmed Hydrocodone/Acetaminophen 1 - 2 each PO Q6H PRN #14 tablet 03/03/20 [Hydrocodone-Acetamin 5-325 mg] - Allergies Allergies/Adverse Reactions: Allergies Allergy/AdvReac Type Severity Reaction Status Date / Time codeine [Codeine] Allergy Mild Nausea Verified 03/03/20 09:14 - Social History Does the pt smoke?: Yes Smoking Status: Current every day smoker Does the pt drink ETOH?: No Does the pt have substance abuse?: Yes - Immunizations Immunizations are current?: Yes - POLST Patient has POLST: No PD ED PE NORMAL - Vitals Vital signs reviewed: Yes (normal ) - General General: Alert and oriented X 3, No acute distress, Well developed/nourished - HEENT HEENT: Atraumatic, PERRL, EOMI, Ears normal, Other (dry mucous membranes. ) - Neck Neck: Supple, no meningeal sign, No bony TTP - Cardiac Cardiac: RRR, No murmur - Respiratory Respiratory: No respiratory distress, Clear bilaterally, Other (There is chest wall tenderness to palpation along the costal sternal border more on the left than the right and this reproduces the symptoms the patient is having.) - Abdomen Abdomen: Normal bowel sounds, Soft, Non tender - Back Back: No CVA TTP, No spinal TTP - Derm Derm: Normal color, Warm and dry, No rash - Extremities Extremities: No deformity, No edema, No calf tenderness / cord - Neuro Neuro: Alert and oriented X 3, hourly caregiver 2-12 intact, No motor deficit, No sensory deficit, Normal speech Eye Opening: Spontaneous Motor: Obeys Commands Verbal: Oriented GCS Score: 15 - Psych Psych: Normal mood, Normal affect Results - Vitals Vitals: Vital Signs - 24 hr 03/03/20 03/03/20 03/03/20 09:10 11:14 13:00 Temperature 36.5 C Heart Rate 70 60 58 L Respiratory 16 17 17 Rate Blood Pressure 113/72 117/76 139/73 H O2 Saturation 98 98 94 03/03/20 15:00 Temperature Heart Rate 53 L Respiratory 11 L Rate Blood Pressure 112/74 O2 Saturation 94 Oxygen O2 Source Room air - EKG (time done) 1037 Rate: Rate (enter#) (56) Intervals: Prolonged QT Compare to prior EKG: Changed from prior EKG (SPT 07-11-2013 the QT interval has increased) Computer interpretation: Agree with computer - Labs Labs: Laboratory Tests 03/03/20 03/03/20 03/03/20 10:04 10:04 10:04 WBC 14.7 H RBC 4.95 Hgb 15.6 Hct 45.9 MCV 92.7 MCH 31.5 H MCHC 34.0 RDW 13.3 Plt Count 286 MPV 9.8 Neut # (Auto) 10.2 H Lymph # (Auto) 3.3 [place] # (Auto) 1.0 Eos # (Auto) 0.0 Baso # (Auto) 0.1 Absolute Nucleated RBC 0.00 Nucleated RBC % 0.0 D-Dimer Sodium 135 Potassium 2.6 L Chloride 89 L Carbon Dioxide 33 H Anion Gap 13.0 BUN 12 Creatinine 0.7 Estimated GFR (MDRD) 89 Glucose 122 H Calcium 9.5 Total Bilirubin 0.7 AST 18 ALT 22 Alkaline Phosphatase 64 Troponin I High Sens 29.5 H* Total Protein 8.2 Albumin 4.7 Globulin 3.5 Albumin/Globulin Ratio 1.3 Lipase 54 H Urine Color Urine Clarity Urine pH Ur Specific [place] Urine Protein Urine Glucose (UA) Urine Ketones Urine Occult Blood Urine Nitrite Urine Bilirubin Urine Urobilinogen Ur Leukocyte Esterase Urine RBC Urine WBC Ur Squamous Epith Cells Amorphous Sediment Urine Bacteria Ur Microscopic Review Urine Culture Comments Urine HCG, Qual 03/03/20 03/03/20 03/03/20 10:04 10:10 10:10 WBC RBC Hgb Hct MCV MCH MCHC RDW Plt Count MPV Neut # (Auto) Lymph # (Auto) [place] # (Auto) Eos # (Auto) Baso # (Auto) Absolute Nucleated RBC Nucleated RBC % D-Dimer < 200.0 L Sodium Potassium Chloride Carbon Dioxide Anion Gap BUN Creatinine Estimated GFR (MDRD) Glucose Calcium Total Bilirubin AST ALT Alkaline Phosphatase Troponin I High Sens Total Protein Albumin Globulin Albumin/Globulin Ratio Lipase Urine Color YELLOW Urine Clarity CLOUDY Urine pH 8.5 H Ur Specific [place] 1.020 1.020 Urine Protein TRACE Urine Glucose (UA) NEGATIVE Urine Ketones NEGATIVE Urine Occult Blood NEGATIVE Urine Nitrite NEGATIVE Urine Bilirubin NEGATIVE Urine Urobilinogen 0.2 (NORMAL) Ur Leukocyte Esterase TRACE H Urine RBC 0-5 Urine WBC 0-3 Ur Squamous Epith Cells RARE Squamous Amorphous Sediment Marked Urine Bacteria Rare Ur Microscopic Review INDICATED Urine Culture Comments INDICATED Urine HCG, Qual NEGATIVE 03/03/20 12:20 WBC RBC Hgb Hct MCV MCH MCHC RDW Plt Count MPV Neut # (Auto) Lymph # (Auto) [place] # (Auto) Eos # (Auto) Baso # (Auto) Absolute Nucleated RBC Nucleated RBC % D-Dimer Sodium Potassium Chloride Carbon Dioxide Anion Gap BUN Creatinine Estimated GFR (MDRD) Glucose Calcium Total Bilirubin AST ALT Alkaline Phosphatase Troponin I High Sens 28.4 H* Total Protein Albumin Globulin Albumin/Globulin Ratio Lipase Urine Color Urine Clarity Urine pH Ur Specific [place] Urine Protein Urine Glucose (UA) Urine Ketones Urine Occult Blood Urine Nitrite Urine Bilirubin Urine Urobilinogen Ur Leukocyte Esterase Urine RBC Urine WBC Ur Squamous Epith Cells Amorphous Sediment Urine Bacteria Ur Microscopic Review Urine Culture Comments Urine HCG, Qual - Rads (name of study) chest Radiology: Prelim report reviewed (Impression: No acute cardiopulmonary process demonstrated radiographically.), EMP read indepedently, See rad report PD MEDICAL DECISION MAKING - ED course Complexity details: reviewed old records, reviewed results, re-evaluated patient, considered differential, d/w patient ED course: 49-year-old female with pleuritic chest pain and a tender chest wall has normal- appearing electrocardiogram. She has minimal elevation of her sensitive trop and this is repeated with similar value. Dr. Dillon is consulted in the case reviews the findings and recommends conservative treatment and follow up with PMD for potential ETT. The values are very low and likely represent the normal for this patient. She has improvement with IV tordal and decadron and she is discharged with a script for pain medication as her vomiting has been a problem and irritation to the stomach is being avoided. Departure - Departure Disposition: 01 Home, Self Care Clinical Impression: Costochondritis, acute Condition: Stable Instructions: ED Chest Pain Costochondritis Follow-Up: Kerrie Ruiz PA [Primary Care Provider] - Prescriptions: Hydrocodone/Acetaminophen [Hydrocodone-Acetamin 5-325 mg] 1 - 2 each PO Q6H PRN #14 tablet PRN Reason: Pain Comments: Follow up with your primary care doctor to consider a treadmill test.
[2020-03-03 10:28] LABS: HCG UR QUAL NEGATIVE
[2020-03-03 11:06] LABS: RBC,URINE 0-5 /HPF (0-5)
[2020-03-03 11:07] LABS: BACTERIA,URINE Rare /HPF (None Seen); SQUAMOUS EPITHELIAL CELL,UR RARE Squamous (<= Few)
[2020-03-03 11:08] LABS: AMORPHOUS SEDIMENT,UR Marked /LPF
[2020-03-03] MEDS ORDERED: POTASSIUM CHLORIDE 20 MEQ TABLET PO STA ×2 (11:20→16:15)
[2020-03-03] MEDS ORDERED: MAG HYDROX/AL HYDROX/SIMETH 30 ML UDC PO STA (12:37)
[2020-03-03] MEDS ORDERED: MAGNESIUM SULFATE 2 GRAM 2 GM/50 ML BAG IV ONE (13:44)
[2020-03-03 16:34] VITALS: BP 110/65
[2020-03-03 17:02] LABS: CHOL/HDL RATIO 2.6 (<4.4); CHOLESTEROL 152 mg/dL; HDL CHOLESTEROL 58 mg/dL; LDL CHOLESTEROL,CALCULATED 73 mg/dL; LDL/HDL RATIO 1.3 (<4.4); VLDL CHOLESTEROL 21 mg/dL
--- NOTE | 2020-03-03 17:23 | CONSULTATION NOTE ---
DATE OF SERVICE: 03/03/2020 Physician: Leanne Amaya MD Consult requested by the Emergency Room doctor of the Hospitalist service, regarding elevated troponin.. HISTORY OF PRESENT ILLNESS: This is a 49-year-old white female with a history of cyclical nausea and vomiting that was severe for many years and has gotten better after she entered menopause approximately 1 year ago. Patient states that it was worse around her period, but in a typical month, she would be vomiting about 20 days out of 30. In this last 1 year, she has had complete resolution of that. In the past 6 days, she developed vomiting intermittently again associated with pleuritic and positional chest pain. Because of this symptom she came in today. She was found to be hypokalemic, having an abnormal EKG and abnormal troponins. The reason for the consult was to comment on the elevated troponins. Patient is active, does gardening and walks her dogs. There is no family history of heart disease except in a great-grandfather. Patient is a smoker of one-half pack a day. She is not on medications for hypertension or diabetes. She is not overweight. Patient does not know her cholesterol status. Patient has never had chest pain with exertion, dyspnea on exertion, PND, palpitations, syncope, or orthopnea symptoms. She has never required a stress test or had an Echocardiogram. In the Emergency room, her exam was consistent with costochondritis with tenderness when her chest was touched and she received Toradol as well as one dose of iv Dexamethasone and has had improvement in her chest pain symptoms. There is currently also no nausea or vomiting. Patient was found to have a low potassium of 2.6, and received p.o. potassium replacement of 40 mEq and her EKG showed prolonged QT interval and after iv magnesium was given, a repeat EKG showed correction of the long QT. ALLERGIES: CODEINE. MEDICATIONS: None. FAMILY HISTORY: Not significant from a cardiopulmonary standpoint. Her parents have no cardiovascular disease. One sister has no cardiovascular disease, and she has no children. SOCIAL HISTORY: She is a 1/2 pack a day smoker, does not drink alcohol in excess or use illicit drugs. She has an active lifestyle. REVIEW OF SYSTEMS: A comprehensive review of systems was performed and the pertinent positives are listed, the rest are negative. PHYSICAL EXAMINATION: GENERAL: Middle-aged white female. She is in no distress currently. VITAL SIGNS: Blood pressure 139/73, pulse 58 in sinus rhythm, afebrile, room air saturation 94%. HEENT: Unremarkable. NECK: Without JVD or carotid bruits. CHEST: Clear. HEART: Normal heart sounds. No rub. No gallop or murmur. ABDOMEN: Soft, nontender with normal bowel sounds. EXTREMITIES: No clubbing, cyanosis or edema. NEUROLOGIC: Grossly intact. LABORATORY DATA: Sodium 135, potassium 2.6, anion gap 13, BUN 12, creatinine 0.7, normal liver tests. Troponin high sensitivity 29.5, then 28.4, lipase 54. CBC showed white count 14.7, otherwise unremarkable. D-dimer less than 200. Urinalysis unremarkable. IMAGING: Chest x-ray: Normal cardiopulmonary exam. EKG #1 showed sinus bradycardia at a rate of 56 with QT prolongation with a QTc measuring 556 msec. EKG #2 showed sinus rhythm at a rate of 63 with correction of the QTc interval to 467 milliseconds and is within normal limits. There is comparison to a 2013 EKG, which was within normal limits then as well. IMPRESSION/DIAGNOSES 1. Elevated troponin, minimally. 2. Prolonged QT interval, corrected with magnesium replacement. 3. Hypokalemia. 4. Hypomagnesemia, presumably. 5. Nausea and vomiting, recurrence, etiology unknown. 6. Costochondritis, presumably related to days of vomiting. PLAN: This type of "flat" and minor troponin elevation is nonspecific. There are no EKG changes to suggest ischemia. She has a low cardiac risk profile for coronary artery disease (smoking and postmenopausal status of 1 year are her only risk factors). For completeness she could have outpatient stress testing done, after follow-up with her PCP. Her potassium needs further replacement since a serum potassium of 2.6 will not have adequate correction with 40 mEq of potassium only. I have ordered 20 mEq more po. Her low potassium and (presumed) low magnesium are likely due to gastrointestinal losses in vomiting. Agree with your management of the prolonged QTc. Agree with your management of the costochondritis with IV Toradol plus steroid. Would try to manage further pain by staying away from nonsteroidal anti-inflammatories to treat outpatient symptoms of costochondritis in this patient, since that may cause gastritis. Consider either just 1-2 days of narcotic pain medications or using just Tylenol management. Obtain a cholesterol panel from the blood in the lab, since she was fasting by virtue of her vomiting. The above was all discussed with patient. She understands and is in agreement with the plan. Thank you for allowing us to participate in the care of this patient. cc: Karlee oBnilla PA-C TD: 03/03/2020 16:26 MTDSana
== END 2020-03-03 16:42 | disposition home or self-care (01) ==
LOC: ED 09:00
DX: M94.0 Chondrocostal junction syndrome [Tietze] (principal); R11.2 Nausea with vomiting, unspecified; E87.6 Hypokalemia; R79.89 Other specified abnormal findings of blood chemistry; I45.81 Long QT syndrome; F17.210 Nicotine dependence, cigarettes, uncomplicated
CPT/HCPCS: 36415; 71046; 80053; 80061; 81001; 81025; 83690; 84484; 85025; 85379; 87086; 93005; 96361; 96365; 96375; 99284; A9270; 81003; 83721

== ENCOUNTER 2020-03-11 12:30 | Observation (INO) | payer MEDICAID ==
--- NOTE | 2020-03-11 12:58 | XRAY Report ---
PROCEDURE: Chest 1 View X-Ray INDICATIONS: Chest pain TECHNIQUE: One view of the chest was acquired. COMPARISON: 03/03/2020 FINDINGS: Surgical changes and devices: None. Lungs and pleura: No pleural effusions or pneumothorax. Lungs are clear. Mediastinum: Mediastinal contours appear normal. Heart size is normal. Bones and chest wall: No suspicious bony lesions. Overlying soft tissues appear unremarkable. IMPRESSION: No acute finding. Reviewed by: Yang Tracey MD on 03/11/2020 12:57 PM PDT Approved by: Yang Tracey MD on 03/11/2020 12:57 PM PDT Station ID: [id number]
--- NOTE | 2020-03-11 13:26 | ED Physician Documentation ---
PD HPI CHEST PAIN - Stated complaint Stated Complaint: CP - Chief complaint Chief Complaint: Cardiac - History obtained from History obtained from: Patient - History of Present Illness Quality: Pressure, Sharp Location: Substernal, Left chest Radiation: Left upper extremity Improved by: Rest Worsened by: Exertion Associated symptoms: Nausea, Feeling faint / dizzy, General Weakness. No: Palpitations, Cough Similar symptoms before: Work up / diagnostics Recently seen: Emergency Dept - Additional information Additional information: 49-year-old female presents to the emergency department for evaluation of sharp and pressure-like left-sided chest pain. She reports that she has been nauseated and felt like she was going to pass out especially when she was working in the garden. pain does worsen with exertion and can improve with rest. she states that for the last week she has been extremely fatigued and having night sweats as well. + nause, no vomiting. no abdominal pain, dysuria, urgency or frequency. No fevers. no unintended weight loss. no loss of taste or smell. no cough or congestion She was seen last week in the ED for similar. At the time of the initial work- up she did have a mild troponin elevation in the mid 20s however her EKG was nonischemic. There was also concern that the pain was reproducible and may be related to a mild costochondritis. At that time it was recommended that she be seen by her primary care provider and referred for an outpatient stress test and echocardiogram. She reports that she has an appointment with her primary doctor in early May. Patient denies any history of high blood pressure or diabetes. She is a 1/2 pack/day smoker. There is not a significant family history of heart disease with the exception of her great grandfather. Over the last 24 hours that she has taken 650 mg of aspirin without relief of the pain. Review of Systems Constitutional: reports: Fatigue, Sweats. denies: Fever, Chills, Weight Loss Eyes: reports: Reviewed and negative Ears: reports: Reviewed and negative Nose: reports: Reviewed and negative Throat: reports: Reviewed and negative Cardiac: reports: Chest pain / pressure. denies: Palpitations, Pedal edema, Calf pain Respiratory: denies: Dyspnea, Cough, Hemoptysis, Wheezing GI: reports: Nausea. denies: Abdominal Pain, Abdominal Swelling, Vomiting, Diarrhea : denies: Dysuria, Frequency Skin: denies: Rash, Lesions Musculoskeletal: denies: Neck pain, Back pain, Extremity pain Neurologic: reports: Near syncope. 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: None : Kidney stones HEENT: None Psych: Anxiety Musculoskeletal: Osteoarthritis Derm: None - Past Surgical History Past Surgical History: Yes General: Colonoscopy, EGD - Present Medications Home Medications: Ambulatory Orders Medication Instructions Recorded Confirmed Hydrocodone/Acetaminophen 1 - 2 each PO Q6H PRN #14 tablet 03/03/20 [Hydrocodone-Acetamin 5-325 mg] - Allergies Allergies/Adverse Reactions: Allergies Allergy/AdvReac Type Severity Reaction Status Date / Time codeine [Codeine] Allergy Mild Nausea Verified 03/11/20 12:39 - Social History Does the pt smoke?: Yes Smoking Status: Current every day smoker Does the pt drink ETOH?: No Does the pt have substance abuse?: Yes - Immunizations Immunizations are current?: Yes - POLST Patient has POLST: No PD ED PE NORMAL - General General: Alert and oriented X 3, No acute distress, Well developed/nourished - HEENT HEENT: Atraumatic, PERRL, EOMI, Ears normal, Moist mucous membranes - Neck Neck: Supple, no meningeal sign, No adenopathy - Cardiac Cardiac: RRR, No murmur, Strong equal pulses (2+ carotid bilaterally, 2+ femoral and pedal bilaterally) - Respiratory Respiratory: No respiratory distress, Clear bilaterally - Abdomen Abdomen: Normal bowel sounds, Soft, Non distended. No: Non tender (Mild epigastric tenderness without rebound or guarding. Negative Pena's negative McBurney's) - Female Female : Deferred - Back Back: No CVA TTP, No spinal TTP - Derm Derm: Normal color, Warm and dry, No rash - Extremities Extremities: No deformity. No: No tenderness to palpate (tenderness with palpation left upper chest, medial axilla) - Neuro Neuro: Alert and oriented X 3, corporate strategy intern 2-12 intact, No motor deficit, No sensory deficit Eye Opening: Spontaneous Motor: Obeys Commands Verbal: Oriented GCS Score: 15 Results - Vitals Vitals: Vital Signs - 24 hr 03/11/20 03/11/20 03/11/20 12:35 14:14 16:00 Temperature 36.4 C L Heart Rate 86 72 71 Respiratory 17 16 18 Rate Blood Pressure 131/90 H 104/72 107/60 O2 Saturation 99 96 98 Oxygen O2 Source Room air - EKG (time done) 1235 Rate: Rate (enter#) (78) Rhythm: NSR Delta: Normal Intervals: Normal IN QRS: Normal Ischemia: Normal ST segments Compare to prior EKG: Changed from prior EKG (previous ECH showed prolonged Qt; that is now corrected and normal) Computer interpretation: Agree with computer - Labs Labs: Laboratory Tests 03/11/20 03/11/20 03/11/20 13:25 13:25 13:25 WBC 10.8 RBC 4.02 L Hgb 12.8 Hct 38.1 MCV 94.8 MCH 31.8 H MCHC 33.6 RDW 14.2 Plt Count 233 MPV 9.7 Neut # (Auto) 6.8 H Lymph # (Auto) 2.9 [place] # (Auto) 0.6 Eos # (Auto) 0.4 Baso # (Auto) 0.1 Absolute Nucleated RBC 0.00 Nucleated RBC % 0.0 Sodium 137 Potassium 3.7 Chloride 103 Carbon Dioxide 23 Anion Gap 11.0 BUN 11 Creatinine 0.7 Estimated GFR (MDRD) 89 Glucose 90 Calcium 8.7 Total Bilirubin 0.5 AST 20 ALT 30 Alkaline Phosphatase 57 Troponin I High Sens < 2.3 L Total Protein 6.4 L Albumin 3.6 Globulin 2.8 Albumin/Globulin Ratio 1.3 Lipase 202 H - Rads (name of study) CXR Radiology: Final report received (No acute cardiopulmonary findings) Abd US Radiology: Final report received (hepatomegaly; steatosis) PD MEDICAL DECISION MAKING - ED course Complexity details: reviewed old records, reviewed results, re-evaluated patient, considered differential, d/w patient ED course: 49-year-old female returns to the emergency department for evaluation of left anterior chest pain that has worsened over the last week and she now reports radiation to the left arm. It is associated with fatigue and night sweats. The chest pain is mildly reproducible in the left anterior chest but she does state that this feels different than the pain that she gets with exertion. Patient is noted to have a mild lipase elevation of 200. She denies abdominal pain or vomiting. She has had no fevers. She is not an alcohol user. An abdominal ultrasound was completed and shows hepatomegaly and hepatic steatosis but no stones or CBD dilation. I do not feel that she has acute pancreatitis at this time - Patient's EKG is reviewed in full. Today it is sinus rhythm without any ST changes. Her intervals are all normal. This is a contrast to last week when she did have a prolonged QTC. Her high-sensitivity troponin is also normal. Her chest x-ray shows no acute findings. However her heart score is 4 placing her at moderate risk for a major adverse cardiac event. Given that this is the second evaluation in 1 week for chest pain it is prudent to bring her in under observation status for stress test and echo. She received 650 mg of aspirin yesterday evening at home therefore aspirin was not repeated today in the emergency department. I have spoken with Dr. Petersen who has agreed to bring her in under observation status. Lipase may be repeated tomorrow in the am . Departure - Departure Disposition: ED Place in Observation Clinical Impression: Elevated lipase Chest pain Qualifiers: Chest pain type: unspecified Qualified Code(s): R07.9 - Chest pain, unspecified
[2020-03-11 13:32] LABS: BASOPHILS # (AUTO) 0.1 10^3/uL (0.0-0.1); BASOPHILS % (AUTO) 0.7 %; EOSINOPHILS # (AUTO) 0.4 10^3/uL (0.0-0.7); EOSINOPHILS % (AUTO) 3.4 %; HGB - HEMOGLOBIN 12.8 g/dL (12.0-16.0); LYMPHOCYTES # (AUTO) 2.9 10^3/uL (1.5-3.5); LYMPHOCYTES % (AUTO) 26.6 %; MEAN CORPUSCULAR HEMOGLOBIN 31.8 pg (27.0-31.0); MEAN CORPUSCULAR HGB CONC 33.6 g/dL (32.0-36.0); MEAN CORPUSCULAR VOLUME 94.8 fL (81.0-99.0); MEAN PLATELET VOLUME 9.7 fL (7.9-10.8); MONOCYTES # (AUTO) 0.6 10^3/uL (0.0-1.0); MONOCYTES % (AUTO) 5.7 %; NEUTROPHILS # (AUTO) 6.8 10^3/uL (1.5-6.6); NEUTROPHILS % (AUTO) 62.9 %; PLT - PLATELET COUNT 233 10^3/uL (130-450); RED BLOOD COUNT 4.02 10^6/uL (4.20-5.40); RED CELL DISTRIBUTION WIDTH 14.2 % (12.0-15.0); WHITE BLOOD COUNT 10.8 x10^3/uL (4.8-10.8)
[2020-03-11 13:54] LABS: ALBUMIN 3.6 g/dL (3.2-5.5); ALBUMIN/GLOBULIN RATIO 1.3 (1.0-2.2); BILIRUBIN,TOTAL 0.5 mg/dL (0.2-1.0); CALCIUM 8.7 mg/dL (8.5-10.3); CREATININE 0.7 mg/dL (0.4-1.0); TOTAL PROTEIN 6.4 g/dL (6.7-8.2)
--- NOTE | 2020-03-11 15:53 | Ultrasound Report ---
PROCEDURE: Abdomen Limited NDICATIONS: elevated lipase TECHNIQUE: Real-time scanning was performed of the abdominal and retroperitoneal organs, with image documentatio n. COMPARISON: CT abdomen pelvis 11/18/2014 FINDINGS: Liver: Liver is enlarged with steatosis. Hypoechoic focus is noted the gallbladder fossa measuring 1 0 x 4 x 8 mm. Gallbladder: Gallbladder wall thickness is within normal limits measuring approximately 25 mm on connie asurement images. Biliary ducts: Intrahepatic bile ducts are non-dilated. Extrahepatic bile duct caliber measures 5 m m. Normal is 6-7 mm or less in diameter, or 10 mm or less post-cholecystectomy. Pancreas: Visualized portions of the pancreas are sonographically normal. Kidneys: Kidneys are normal in size and echotexture. Right kidney measures 11.0 cm long. No hydron ephrosis or nephrolithiasis. No solid masses. IVC: Intrahepatic inferior vena cava is patent. IMPRESSION: 1. Hepatomegaly steatosis. 2. Small focus of decreased echogenicity adjacent to the gallbladder. This likely corresponds to prev iously identified hepatic cyst on 2015 exam. Reviewed by: Tequila Russ MD on 03/11/2020 3:51 PM PDT Approved by: Tequila Russ MD on 03/11/2020 3:51 PM PDT Station ID: [id number]
[2020-03-11] MEDS ORDERED: ACETAMINOPHEN 325 MG TABLET PO PRN (16:26)
[2020-03-11] MEDS ORDERED: ONDANSETRON 4 MG/2 ML VIAL IVP PRN (16:26)
[2020-03-11] MEDS ORDERED: MORPHINE 2 MG/ML CARPUJECT IVP PRN (16:26)
[2020-03-11] MEDS ORDERED: SODIUM CHLORIDE FLUSH 0.9% 10 ML SYRINGE IVP PRN (16:26)
[2020-03-11] MEDS ORDERED: GI COCKTAIL 120 ML BOTTLE PO PRN (16:31)
[2020-03-11] MEDS ORDERED: NITROGLYCERIN SL 0.4 MG TABLET SL PRN (16:32)
--- NOTE | 2020-03-11 16:34 | HISTORY & PHYSICAL EXAMINATION ---
Chief Complaint - Chief Complaint Chief Complaint: chest pain History of Present Illness - Admitted From Admitted From:: ER - History Obtained From History obtained from: pt - History of Present Illness HPI Comment/Other: This tin 49-year-old female with a PMH significant for current cigarette smoker, GERD, GI bleed, Ulcers, Chronic diarrhea, osteoarthritis, kidney stone and anxiety, who presents to the emergency department for complaining of sharp and pressure-like left-sided chest pain. Patient reported she had similar symptoms on last week and she was discharged and advised to Follow-up with stress test. Unfortunately patient report she cannot see his PCP until May so she did not have stress test. She reports that she has been nauseated without vomiting, and felt like she was going to pass out especially when she was working in the garden. she report her chest pain located at her left chest with sharp and pressure-feeling, and radiate to her back with numbness on her left upper arm as well. Her chest pain is still likely re-producible. She report her pain does worsen with exertion and can improve with rest. she report Over the last 24 hours that she has taken 650 mg of aspirin without relief of the pain. she states that for the last week she has been fatigued and had night sweats as well. Patient also report left side upper extremity and lower extremity has numbness and has weakness but is resolved right now. she denies fevers, chill, shortness of breath, abdominal pain. Her initiated troponin is negative for acute NE, EKG is sinus rhythm without ST variation. Chest x-ray and ultrasound of up abdomen are unremarkable. Patient afebrile, at this point she is hemodynamic stable. Patient is admitted for chest pain. discussed care goal with pt, pt request to have full code. 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 Social History Notes: pt report she still smokes cigarette, she denies alcohol issue. she report she smoke majuana occationally - Substance History Use: Uses substance without health or social issues: Tobacco - POLST Patient has POLST: No Meds/Allgy - Home Medications Home Medications: Ambulatory Orders Medication Instructions Recorded Confirmed Hydrocodone/Acetaminophen 1 - 2 each PO Q6H PRN #14 tablet 03/03/20 03/11/20 [Hydrocodone-Acetamin 5-325 mg] - Allergies Allergies/Adverse Reactions: Allergies Allergy/AdvReac Type Severity Reaction Status Date / Time codeine [Codeine] Allergy Mild Nausea Verified 03/11/20 12:39 Review of Systems - Constitutional Constitutional: reports: Fatigue, Night sweats. denies: Fever, Chills, Malaise, Weakness, Poor appetite, Diaphoresis - Eyes Eyes: denies: Pain, Blurred vision, Spots in vision, Field loss, Vision loss, Dipolpia - Ears, Nose & Throat Ears, Nose & Throat: denies: Ear pain, Tinnitus, Nasal discharge, Nosebleeds, Nasal congestion, Postnasal drainage, Sore throat, Mouth lesions, Bleeding gums - Cardiovascular Cariovascular: reports: Chest pain. denies: Irregular heart rate, Palpitations, Edema, Lightheadedness, Syncope, Exertional dyspnea, Decr. exercise tolerance - Respiratory Respiratory: denies: Cough, Sputum production, Wheezing, Snoring, Hemoptysis, Orthopnea, SOB at rest, SOB with exertion - Gastrointestinal Gastrointestinal: reports: Nausea. denies: Abdominal pain, Abdominal distention, Constipation, Diarrhea, Rectal bleeding, Black stools, Bloody stools, Vomiting, Piero blood emesis, Coffee grounds emesis, Reflux/heartburn - Genitourinary Genitourinary: denies: Dysuria, Frequency, Urgency, Hematuria, Incontinence, Flank pain - Musculoskeletal Musculoskeletal: denies: Muscle pain, Back pain, Muscle aches, Limited range of motion, Muscle weakness, Gout, Joint pain - Integumentary Integumentary: denies: Rash, Pruritis, Lesions, Lumps, Pigment changes - Neurological Neurological: reports: Focal weakness, Numbness. denies: General weakness, Headache, Dizziness, Memory problems, Pre-existing deficit, Abnormal gait, Seizures, Incoordination, Slurred speech - Psychiatric Psychiatric: denies: Depression, Suicidal, Delusions, Hallucinations, Homicidal - Endocrine Endocrine: denies: Polyuria, Polydypsia, Polyphagia - Hematologic/Lymphatic Hematologic/Lymphatic: denies: Anemia, Petechiae, Blood clots, Lymphadenopathy, Bleeding tendencies Exam - Vital Signs Vital Signs: Vital Signs x48h Temp Pulse Resp BP Pulse Ox 03/11/20 16:00 71 18 107/60 98 03/11/20 14:14 72 16 104/72 96 03/11/20 12:35 36.4 C L 86 17 131/90 H 99 - Physical Exam General Appearance: positive: No acute distress, Alert. negative: Lethargic Eyes Bilateral: positive: Normal inspection, PERRL, No lid inflammation ENT: positive: ENT inspection nml, Pharynx nml, No signs of dehydration. negative: Purulent nasal drainage, Dry mucous membranes Neck: positive: Nml inspection, Thyroid nml, Trachea midline. negative: Thyromegaly, Stiff neck, Tracheal deviation Respiratory: positive: Chest non-tender, No respiratory distress. negative: Wheezes, Rales, Rhonchi Cardiovascular: positive: Regular rate & rhythm, No murmur. negative: Tachycardia, Bradycardia, Systolic murmur, Diastolic murmur Peripheral Pulses: positive: 2+ Abdomen: positive: Non-tender, No organomegaly, Nml bowel sounds, No distention. negative: Tenderness, Guarding, Rebound Back: positive: Nml inspection. negative: CVA tenderness (R), CVA tenderness (L) Skin: positive: Color nml, No rash, Warm, Dry. negative: Cyanosis, Diaphoresis, Pallor Extremities: positive: Non-tender, Full ROM, Nml appearance. negative: Calf tenderness, Bonny's sign/cords Neurologic/Psychiatric: positive: Oriented x3, Motor nml, Sensation nml, Mood/affect nml. negative: Weakness, Sensory loss, Facial droop, Slurred/abnml speech, Depressed mood/affect Sepsis Event Note (H) - Evaluation Current Stage of Sepsis: Ruled out Conclusion/Plan - Problem List (1) Chest pain Conclusion/Plan: Patient had recurrent chest pain, Initiated troponin is negative and the EKG is sinus rhythm without ST variation. Patient is currently smoker, her chest pain score is 4, and placing her at moderate risk for a major adverse cardiac event. Unfortunately we have no echo on tomorrow. We will plan to have stress test on tomorrow. Patient already take aspirin at home, tomorrow will start baby aspirin. Morphine for pain as needed, check lipid panel, tele and lab monitor, continue serial troponin test. Qualifiers: Chest pain type: unspecified Qualified Code(s): R07.9 - Chest pain, unspecified (2) TIA (transient ischemic attack) Conclusion/Plan: Patient report she has numbness in her left upper and lower extremity, she feels weakness on her left side. But right now her symptoms are resolved. We will order CAT scan of brain for TIA. Patient is very anxious, is possible from her anxiety. continue aspirin, and neuro check, add Ativan PRN (3) Elevated lipase Conclusion/Plan: Patient had elevated lipase 200 but patient has no abdominal pain,Ultrasound of upper abdomen review hepatomegaly steatosis without pancreatic abnormality found.We will continue lab monitor, likely be reactive. (4) Anxiety Conclusion/Plan: Patient has history of anxiety and patient present anxious, we will add ativan as needed - Lab Results Fish Bones: 03/11/20 13:25 03/11/20 13:25 Core Measures - Anticipated LOS I expect patient to be DC'd or transferred within 96 hours.: Yes - DVT/VTE - Prophylaxis VTE/DVT Device ordered at admit?: Yes VTE/DVT Prophylaxis med ordered at admit?: Yes
[2020-03-11] MEDS ORDERED: SODIUM CHLORIDE 0.9% 500 ML IV PRN (17:04)
[2020-03-11] MEDS: PANTOPRAZOLE 40 MG TABLET PO SCH (17:29)
[2020-03-11] MEDS: SODIUM CHLORIDE FLUSH 0.9% 10 ML SYRINGE IVP SCH ×2 (17:29→23:46)
--- NOTE | 2020-03-11 17:32 | PHARMACY PROGRESS NOTE ---
- Best Possible Medication History Admit Date and Time: 03/11/20 1626 Processed by: Pharmacy Medication History completed: Yes Patient Interview: Completed Secondary Source(s): Previous admit records As the person ultimately responsible for medication therapy, providers are able to order a medication from an existing home medication list in [facility] via the "Reconcile Routine" prior to Confirmation of that medication by clerical support specialist. Such practice is discouraged except when the physician, in their clinical judgment, deems that a medical need exists for a medication without regard to previous use.
[2020-03-11] MEDS ORDERED: LORazepam 0.5 MG TABLET PO PRN (17:33)
--- NOTE | 2020-03-11 19:01 | CT Report ---
PROCEDURE: HEAD WO INDICATIONS: left side numbness and weakness TECHNIQUE: Noncontrast 4.5 mm thick angled axial sections acquired from the foramen magnum to the vertex. For r adiation dose reduction, the following was used: automated exposure control, adjustment of mA and/or kV according to patient size. COMPARISON: None. FINDINGS: Image quality: Excellent. CSF spaces: Basal cisterns are patent. No extra-axial fluid collections. Ventricles are normal in size and shape. Brain: No midline shift. No intracranial masses or hemorrhage. Apodaca-white matter interface is norm al. Skull and face: Calvarium and visualized facial bones are intact, without suspicious lesions. Sinuses: Visualized sinuses and mastoids are clear. IMPRESSION: No acute intracranial abnormality. Reviewed by: David Mejias MD on 03/11/2020 5:59 PM [facility] Approved by: David Mejias MD on 03/11/2020 5:59 PM [facility] Station ID: [id number]
[2020-03-11] MEDS ORDERED: ATORVASTATIN 10 MG TABLET PO SCH (21:00)
[2020-03-12 00:37] LABS: MUDS CUTOFF CONCENTRATIONS CUTOFF CONC BELOW:
[2020-03-12 00:56] LABS: AMPHETAMINE SCREEN,URINE NEGATIVE (NEGATIVE); BENZODIAZEPINES SCREEN, URINE NEGATIVE (NEGATIVE); COCAINE SCREEN URINE NEGATIVE (NEGATIVE); METHADONE SCREEN, URINE NEGATIVE (NEGATIVE); METHAMPHETAMINES SCREEN, URINE NEGATIVE (NEGATIVE); OPIATE SCREEN, URINE NEGATIVE (NEGATIVE); OXYCODONE SCREEN, URINE NEGATIVE (NEGATIVE); PROPOXYPHENE SCREEN, URINE NEGATIVE (NEGATIVE); TRICYCLIC ANTIDEPRESSANT,URINE NEGATIVE (NEGATIVE)
[2020-03-12 05:16] LABS: BASOPHILS # (AUTO) 0.1 10^3/uL (0.0-0.1); BASOPHILS % (AUTO) 0.6 %; EOSINOPHILS # (AUTO) 0.5 10^3/uL (0.0-0.7); EOSINOPHILS % (AUTO) 3.8 %; HGB - HEMOGLOBIN 13.5 g/dL (12.0-16.0); LYMPHOCYTES # (AUTO) 2.5 10^3/uL (1.5-3.5); LYMPHOCYTES % (AUTO) 20.5 %; MEAN CORPUSCULAR HEMOGLOBIN 31.6 pg (27.0-31.0); MEAN CORPUSCULAR HGB CONC 33.4 g/dL (32.0-36.0); MEAN CORPUSCULAR VOLUME 94.6 fL (81.0-99.0); MEAN PLATELET VOLUME 10.1 fL (7.9-10.8); MONOCYTES # (AUTO) 0.6 10^3/uL (0.0-1.0); MONOCYTES % (AUTO) 4.5 %; NEUTROPHILS # (AUTO) 8.7 10^3/uL (1.5-6.6); PLT - PLATELET COUNT 252 10^3/uL (130-450); RED BLOOD COUNT 4.27 10^6/uL (4.20-5.40); RED CELL DISTRIBUTION WIDTH 14.4 % (12.0-15.0); WHITE BLOOD COUNT 12.4 x10^3/uL (4.8-10.8)
[2020-03-12 05:30] LABS: CREATININE 0.7 mg/dL (0.4-1.0)
[2020-03-12 05:39] LABS: CHOL/HDL RATIO 3.3 (<4.4); CHOLESTEROL 197 mg/dL; HDL CHOLESTEROL 59 mg/dL; LDL CHOLESTEROL,CALCULATED 126 mg/dL; LDL/HDL RATIO 2.1 (<4.4); VLDL CHOLESTEROL 12 mg/dL
[2020-03-12] MEDS: PANTOPRAZOLE 40 MG TABLET PO SCH (06:07)
[2020-03-12] MEDS ORDERED: ASPIRIN CHEW 81 MG TABLET PO SCH (09:00)
[2020-03-12] MEDS ORDERED: ENOXAPARIN 40 MG/0.4 ML SYRINGE SUBQ SCH (09:00)
[2020-03-12] MEDS ORDERED: TC-99M/TETROFOSMIN 1.38 MG/30 ML VIAL IVP ONE (09:00)
[2020-03-12] MEDS: SODIUM CHLORIDE FLUSH 0.9% 10 ML SYRINGE IVP SCH (10:04)
[2020-03-12 11:17] LABS: BILIRUBIN,URINE NEGATIVE (NEGATIVE); GLUCOSE, URINE (UA) NEGATIVE (NEGATIVE); KETONES,URINE (UA) NEGATIVE (NEGATIVE); LEUKOCYTE ESTERASE, URINE SMALL (NEGATIVE); NITRITE,URINE NEGATIVE (NEGATIVE); OCCULT BLOOD,URINE NEGATIVE (NEGATIVE); PROTEIN,URINE NEGATIVE (NEGATIVE); UROBILINOGEN,URINE 0.2 (NORMAL) E.U./dL (NORMAL)
[2020-03-12 11:27] LABS: CLARITY,URINE CLEAR (CLEAR)
[2020-03-12 11:38] LABS: BACTERIA,URINE Few /HPF (None Seen); RBC,URINE 0-5 /HPF (0-5); SQUAMOUS EPITHELIAL CELL,UR RARE Squamous (<= Few)
--- NOTE | 2020-03-12 15:58 | CARDIAC PROCEDURE NOTE ---
DATE OF SERVICE: 03/12/2020 Physician: Leanne Amaya MD INDICATION: Chest pain. CARDIAC RISK FACTORS 1. Possible postmenopausal status. 2. Remote family history of heart disease. PROCEDURE: After signing informed consent, the patient underwent a Sd- protocol treadmill stress test with nuclear myocardial perfusion imaging. RESTING HEART RATE: 61. PEAK HEART RATE: 148 (87% predicted heart rate for age). RESTING BLOOD PRESSURE: 109/68. PEAK BLOOD PRESSURE: 175/71. Patient exercised for 10 minutes and 39 seconds on a Sd-protocol treadmill stress test. She achieved a peak heart rate of 148 (87% PMHR) and 12.9 METS. Patient had good heart rate response and blood pressure response. Patient developed moderate to severe shortness of breath at her peak stage. Oxygen saturation was 97 to 99% on room air throughout the test. Patient developed her typical chest tightness in stage 1, which she rated 2/10. This progressed at peak to rating 4-5/10. The chest pain then resolved in recovery spontaneously in 5 minutes. RESTING EKG: Normal sinus rhythm, within normal limits. EKG AT PEAK: No ST segment or T-wave changes to suggest ischemia. SUMMARY 1. Normal resting EKG. 2. Good exercise tolerance. 3. No ischemic changes by EKG criteria at a good level of stress achieved. 4. Nuclear images reported separately. 5. This patient's cardiac risk based on all the above: Low. cc: Elier Sierra MD TD: 03/12/2020 15:48 MTDD
--- NOTE | 2020-03-12 16:55 | Nuclear Medicine Report ---
PROCEDURE: Rest and exercise myocardial perfusion SPECT with gated imaging and ejection fraction INDICATIONS: chest pain RADIOPHARMACEUTICAL: 8.1 mCi Tc-99m Myoview IV at rest and 24.4 mCi Tc-99m Myoview IV at peak exerci se. [id number] was performed. TECHNIQUE: Radiopharmaceutical was injected at peak stress test, and also at rest. SPECT images wer e obtained. SPECT myocardial perfusion images were displayed in short axis, horizontal long axis, an d vertical long axis views. Gated images were reviewed using AutoQUANT software. COMPARISON: None available. CARDIAC STRESS: A standard Sd treadmill exercise tolerance test was performed by the patient under the supervision of an attending staff. FINDINGS: Raw data: There is good myocardial labeling by radiotracer. No significant motion artifacts. Lung- to-heart ratio is 0.33 (normal is less than 0.38 for tetrafosmin tracer). Left ventricle function: Gated images demonstrate normal left ventricle wall thickening. No segment al wall motion abnormality. No transient ischemic dilation; TID is 1.06 (normal less than 1.3). The left ventricle resting end-diastolic volume is 77 mL. Left ventricle stress ejection fraction is 70 %; normal values are above 45%. Myocardial perfusion: There is normal distribution of activity in the left and right ventricular berto cardium. No fixed or reversible perfusion defects. IMPRESSION: 1. No evidence of myocardial ischemia. 2. Normal left ventricular function. PQRS ATTESTATIONS: Measure 322 - Is this imaging test primarily performed on a low-risk surgery patient for preoperative evaluation within 30 days preceding their low-risk non-cardiac surgery? Low-risk surgery is defined as cardiac or myocardial infarction less than 1%, including (but not limited to) endoscopic pr ocedures, superficial procedures, cataract surgery, and excisional breast surgery: Answer: No Measure 323 - Is this imaging test performed primarily for the monitoring of an asymptomatic patient who had percutaneous coronary intervention on the visit date or within 2 years of the visit date? An swer: No Measure 324 - Is this imaging test performed primarily for the initial detection and risk assessment on an asymptomatic, low coronary heart disease patient? Low CHD risk definition = clinicians should consider the maximum number of available patient factors used to estimate risk based on [place] (A TP III criteria), typically age, gender, diabetes, smoking status, and use of blood pressure medicati on, and integrate age appropriate estimates for missing elements, such as LDL or standard blood press ure. Answer: No Reviewed by: Guerda Moe MD on 03/12/2020 4:54 PM PDT Approved by: Guerda Moe MD on 03/12/2020 4:54 PM PDT Station ID: [id number]
--- NOTE | 2020-03-12 17:13 | Discharge Plan ---
Discharge Plan Problem Reviewed?: Yes Disposition: Home, Self Care Condition: Stable Diet: Regular Activity Restrictions: Activity as Tolerated Shower Restrictions: No (fall precaution) Instruction Topics: ED Chest Pain Atypical Unkn Cause, ED Chest Wall Pain Costochond Health Concerns: chest pain Plan of Treatment: your serial troponin tests were negative, you had normal EKG, and had normal stress test. you have no evidence of myocardial ischemia with normal left ventricular function. Care Goals: improvement/resolved of your medical condition Assessment: discussed the care plan and study results with you, you understood. Additional Instructions or Follow Up instructions: you may followup with your PCP in 2-3 weeks, should your symptoms return or worsen, you may present ER or call 911 for help. No Smoking: If you smoke, Please STOP! Call for help. Follow-up with: Elier Sierra MD [Primary Care Provider] -
--- NOTE | 2020-03-12 17:19 | DISCHARGE SUMMARY ---
Discharge Summary Admit Date: 03/11/20 Discharge Date: 03/12/20 Discharging Provider: Micha Vizcarra Primary Care Provider: Elier Clemons Condition at Discharge: Stable Discharge Disposition: 01 Home, Self Care Discharge Facility Name: Home - DIAGNOSES Discharge Diagnoses with Status of Each Condition: (1) Chest pain Patient was diagnosis of Costochondritis in the previous admission for pt chest pain. pt's chest pain is reproducible. Her serial troponin tests were negative, she had normal EKG, and had normal stress test. she have no evidence of myocardial ischemia with normal left ventricular function. (2) anxiety Patient report she has numbness in her left upper and lower extremity, and some weakness on her left side. she also report it may be her anxiety to cause it. CT of head was unremarkable. Now her anxiety is on good control. (3) Elevated lipase resolved.\ (4)current cigarette smoker Patient is strongly encouraged to quit cigarette smoking - HPI History of Present Illness: This tin 49-year-old female with a PMH significant for current cigarette smoker, GERD, GI bleed, Ulcers, Chronic diarrhea, osteoarthritis, kidney stone and anxiety, who presents to the emergency department for complaining of sharp and pressure-like left-sided chest pain. Patient reported she had similar symptoms on last week and she was discharged and advised to Follow-up with stress test. Unfortunately patient report she cannot see his PCP until May so she did not have stress test. She reports that she has been nauseated without vomiting, and felt like she was going to pass out especially when she was working in the garden. she report her chest pain located at her left chest with sharp and pressure-feeling, and radiate to her back with numbness on her left upper arm as well. Her chest pain is still likely re-producible. She report her pain does worsen with exertion and can improve with rest. she report Over the last 24 hours that she has taken 650 mg of aspirin without relief of the pain. she states that for the last week she has been fatigued and had night sweats as well. Patient also report left side upper extremity and lower extremity has numbness and has weakness but is resolved right now. she denies fevers, chill, shortness of breath, abdominal pain. Her initiated troponin is negative for acute SC, EKG is sinus rhythm without ST variation. Chest x-ray and ultrasound of up abdomen are unremarkable. Patient afebrile, at this point she is hemodynamic stable. Patient is admitted for chest pain. discussed care goal with pt, pt request to have full code. - HOSPITAL COURSE Hospital Course: Patient was admitted for recurrent chest pain. Patient was a diagnosis of costochondritis in the previous admission. Patient had a stress test, EKG, serial troponin test all negative for acute SC. Patient has no more numbness or weakness. Pt's CT of the head and ultrasound of the abdomen are all unremarkable. Explained to the patient patient has no evidence of acute myocardial ischemia, patient had a normal left ventricular function.Patient was happy to be discharged home. - ALLERGIES Allergies/Adverse Reactions: Allergies Allergy/AdvReac Type Severity Reaction Status Date / Time codeine [Codeine] Allergy Mild Nausea Verified 03/11/20 12:39 - MEDICATIONS Home Medications: Ambulatory Orders Medication Instructions Recorded Confirmed Hydrocodone/Acetaminophen 1 - 2 each PO Q6H PRN #14 tablet 03/03/20 03/11/20 [Hydrocodone-Acetamin 5-325 mg] - PHYSICAL EXAM AT DISCHARGE General Appearance: positive: No acute distress, Alert. negative: Lethargic Eyes Bilateral: positive: Normal inspection, PERRL, No lid inflammation ENT: positive: ENT inspection nml, Pharynx nml, No signs of dehydration. negative: Purulent nasal drainage Neck: positive: Nml inspection, Thyroid nml, Trachea midline. negative: Thyromegaly, Stiff neck, Tracheal deviation Respiratory: positive: Chest non-tender, No respiratory distress, Breath sounds nml. negative: Wheezes, Rales, Rhonchi Cardiovascular: positive: Regular rate & rhythm, No murmur. negative: Extrasystoles, Tachycardia, Bradycardia, Systolic murmur, Diastolic murmur Peripheral Pulses: positive: 2+ Abdomen: positive: Non-tender, Nml bowel sounds, No distention. negative: Tenderness, Guarding, Rebound Back: positive: Nml inspection. negative: CVA tenderness (R), CVA tenderness (L) Skin: positive: Color nml, No rash, Warm, Dry. negative: Cyanosis, Diaphoresis, Pallor Extremities: positive: Non-tender, Full ROM, Nml appearance. negative: Calf tenderness, Bonny's sign/cords Neurologic/Psychiatric: positive: Oriented x3, Motor nml, Sensation nml, Mood/affect nml. negative: Weakness, Sensory loss, Facial droop, Slurred/abnml speech, Depressed mood/affect - LABS Result Diagrams: 03/12/20 04:35 03/12/20 04:35 - SEPSIS Current Stage of Sepsis: Ruled out - FOLLOW UP Follow Up: your serial troponin tests were negative, you had normal EKG, and had normal stress test. you have no evidence of myocardial ischemia with normal left ventricular function. you may followup with your PCP in 2-3 weeks, should your symptoms return or worsen, you may present ER or call 911 for help. - TIME SPENT Time Spent in Discharge (Minutes): 30
[2020-03-12 17:40] VITALS: BP 108/70
== END 2020-03-12 17:40 | disposition home or self-care (01) ==
LOC: ED 12:30 → MS2 16:26
PROVIDERS: ADMIT Nurse Practitioner Gerontology; ATTEND Nurse Practitioner Gerontology
DX: R07.9 Chest pain, unspecified (principal); F41.9 Anxiety disorder, unspecified; R74.8 Abnormal levels of other serum enzymes; R16.0 Hepatomegaly, not elsewhere classified; K76.0 Fatty (change of) liver, not elsewhere classified; F17.210 Nicotine dependence, cigarettes, uncomplicated; K21.9 Gastro-esophageal reflux disease without esophagitis; K52.9 Noninfective gastroenteritis and colitis, unspecified; Z87.11 Personal history of peptic ulcer disease; Z87.442 Personal history of urinary calculi; Z82.49 Family history of ischemic heart disease and other diseases of the circulatory system
CPT/HCPCS: 36415; 70450; 71045; 76705; 78452; 80048; 80053; 80061; 80306; 81001; 83690; 84484; 85025; 87086; 93005; 93017; 96372; 99285; A9270; A9500; A9502; G0378; J1650; 83721

== ENCOUNTER 2020-08-17 10:53 | Outpatient (CLI) | payer MEDICAID ==
--- NOTE | 2020-08-18 12:29 | Mammography Report ---
BILATERAL DIGITAL SCREENING MAMMOGRAM 3D/2D: 08/17/2020 CLINICAL: Routine screening. Comparison is made to exams dated: 05/01/2018 mammogram and 01/14/2014 mammogram - [facility]. There are scattered fibroglandular elements in both breasts. No significant masses, calcifications, or other findings are seen in either breast. There has been no significant interval change. IMPRESSION: NEGATIVE There is no mammographic evidence of malignancy. A 1 year screening mammogram is recommended. This exam was interpreted at Station ID: [id number]. NOTE: For mammograms, a report in lay terms will be sent to the patient. Approximately 15% of breast malignancies will not be visualized mammographically. In the management of a palpable breast mass, a negative mammogram must not discourage biopsy of a clinically suspicious lesion. Electronically Signed By: David Mejias M.D. [facility] [place]:08/17/2020 16:35:41 ACR BI-RADS Category 1: Negative 3341F B -Scattered fibroglandular 1 Mammogram [id number] 1 year screening B
== END 2020-08-17 10:54 | disposition home or self-care (01) ==
LOC: DI.S 10:53
PROVIDERS: ATTEND Family Medicine
DX: Z12.31 Encounter for screening mammogram for malignant neoplasm of breast (principal)

== ENCOUNTER 2020-09-28 09:16 | Outpatient (CLI) | payer MEDICAID ==
--- NOTE | 2020-09-28 10:18 | XRAY Report ---
PROCEDURE: Cervical Spine 2 View INDICATIONS: CERVICAL RADICULOPATHY TECHNIQUE: 3 view(s) of the cervical spine were acquired. COMPARISON: None. FINDINGS: Bones: No fractures or dislocations to the T1 level. The lateral masses of C1 appear intact on the odontoid view. No suspicious bony lesions. Very mild spondylitic change. Soft tissues: No prevertebral soft tissue swelling. IMPRESSION: Very mild cervical spondylitic change. Reviewed by: Car Gordon MD on 09/28/2020 10:17 AM PDT Approved by: Car Gordon MD on 09/28/2020 10:17 AM PDT Station ID: [id number]
--- NOTE | 2020-09-28 10:39 | XRAY Report ---
PROCEDURE: Shoulder 3 View RT INDICATIONS: RIGHT SHOULDER IMPINGEMENT SYNDROME TECHNIQUE: 3 views of the shoulder were acquired. COMPARISON: None. FINDINGS: Bones: No fractures or dislocations. No suspicious bony lesions. Visualized ribs appear intact. Soft tissues: No suspicious soft tissue calcifications. IMPRESSION: No evidence acute bony abnormality of the right shoulder. Comment: If clinically suspect shoulder impingement, shoulder MRI arthrography may be helpful Reviewed by: Car Gordon MD on 09/28/2020 10:38 AM PDT Approved by: Car Gordon MD on 09/28/2020 10:38 AM PDT Station ID: [id number]
== END 2020-09-28 23:59 | disposition home or self-care (01) ==
LOC: DI.WCP 09:16
PROVIDERS: ATTEND Physician Assistant Medical
DX: M47.22 Other spondylosis with radiculopathy, cervical region (principal); M75.41 Impingement syndrome of right shoulder

== ENCOUNTER 2021-05-13 15:11 | Outpatient (CLI) | payer MEDICAID ==
[2021-05-13 19:54] LABS: BASOPHILS # (AUTO) 0.1 10^3/uL (0.0-0.1); BASOPHILS % (AUTO) 0.7 %; EOSINOPHILS # (AUTO) 0.3 10^3/uL (0.0-0.7); EOSINOPHILS % (AUTO) 3.1 %; HCT - HEMATOCRIT 42.7 % (37.0-47.0); HGB - HEMOGLOBIN 13.8 g/dL (12.0-16.0); LYMPHOCYTES # (AUTO) 3.1 10^3/uL (1.5-3.5); LYMPHOCYTES % (AUTO) 32.5 %; MEAN CORPUSCULAR HEMOGLOBIN 31.2 pg (27.0-31.0); MEAN CORPUSCULAR HGB CONC 32.3 g/dL (32.0-36.0); MEAN CORPUSCULAR VOLUME 96.4 fL (81.0-99.0); MEAN PLATELET VOLUME 10.9 fL (7.9-10.8); MONOCYTES # (AUTO) 0.4 10^3/uL (0.0-1.0); MONOCYTES % (AUTO) 4.4 %; NEUTROPHILS # (AUTO) 5.6 10^3/uL (1.5-6.6); PLT - PLATELET COUNT 223 10^3/uL (130-450); RED BLOOD COUNT 4.43 10^6/uL (4.20-5.40); RED CELL DISTRIBUTION WIDTH 13.9 % (12.0-15.0); WHITE BLOOD COUNT 9.4 x10^3/uL (4.8-10.8)
[2021-05-13 19:58] LABS: BILIRUBIN,URINE NEGATIVE (NEGATIVE); GLUCOSE, URINE (UA) NEGATIVE (NEGATIVE); KETONES,URINE (UA) NEGATIVE (NEGATIVE); LEUKOCYTE ESTERASE, URINE TRACE (NEGATIVE); NITRITE,URINE NEGATIVE (NEGATIVE); OCCULT BLOOD,URINE NEGATIVE (NEGATIVE); PH,URINE 6.5 PH (5.0-7.5); PROTEIN,URINE NEGATIVE (NEGATIVE); UROBILINOGEN,URINE 0.2 (NORMAL) E.U./dL (NORMAL)
[2021-05-13 20:15] LABS: BACTERIA,URINE None Seen /HPF (None Seen); CLARITY,URINE CLEAR (CLEAR); MUCUS,URINE Few Strands; RBC,URINE None Seen /HPF (0-5); SQUAMOUS EPITHELIAL CELL,UR RARE Squamous (<= Few); WBC,URINE 0-3 /HPF (0-5)
[2021-05-13 20:23] LABS: ALBUMIN 4.3 g/dL (3.2-5.5); ALBUMIN/GLOBULIN RATIO 1.4 (1.0-2.2); BILIRUBIN,TOTAL 0.6 mg/dL (0.2-1.0); CALCIUM 9.3 mg/dL (8.5-10.3); CREATININE 0.7 mg/dL (0.4-1.0); POTASSIUM 3.9 mmol/L (3.5-5.0); TOTAL PROTEIN 7.3 g/dL (6.7-8.2)
== END 2021-05-13 23:59 | disposition home or self-care (01) ==
LOC: LAB.S 15:11
PROVIDERS: ATTEND Emergency Medicine
DX: R10.32 Left lower quadrant pain (principal)
CPT/HCPCS: 36415; 80053; 81001; 83690; 85025; 87086

== ENCOUNTER 2021-05-28 08:53 | Outpatient (CLI) | payer MEDICAID ==
[2021-05-28] MEDS: IOVERSOL 320 50 ML VIAL PO ONE (10:37)
[2021-05-28] MEDS: IOVERSOL 320 100 ML VIAL IVP ONE (10:37)
--- NOTE | 2021-05-28 11:16 | CT Report ---
PROCEDURE: Abdomen/Pelvis W INDICATIONS: ABDOMINAL PAIN, LLQ left flank pain. CONTRAST: IV CONTRAST: Optiray 320 ml: 100 PO CONTRAST: Optiray 320 ml50 TECHNIQUE: After the administration of oral and IV contrast, 5 mm thick sections acquired from the diaphragms to the symphysis. 5 mm thick coronal and sagittal reformats were acquired. For radiation dose reducti on, the following was used: automated exposure control, adjustment of mA and/or kV according to asif ent size. COMPARISON: 11/18/2014, 01/25/2013 FINDINGS: Image quality: Excellent. ABDOMEN: Lung bases: Lung bases are clear. Heart size is normal. Solid organs: Liver and spleen are normal in size and enhancement. An accessory splenule is inciden tally noted along the anterior aspect of the primary spleen. Gallbladder wall does not appear thick ened. Biliary system is non dilated. Pancreas enhances normally. No adrenal nodules. Kidneys demonstrate normal size and enhancement, without hydronephrosis. Specifically, no left hydro nephrosis can be seen in this patient with a presenting history of left flank pain. Peritoneum and bowel: In this patient with this given history, scrutiny is given to sigmoid colon an d the left lower quadrant. No significant diverticulosis is seen. Negative for diverticulitis. No foc al left lower quadrant inflammatory changes are seen. Bowel loops demonstrate normal wall thickness and caliber. No free fluid or air. A normal appendix is seen. Nodes and vessels: No retroperitoneal or mesenteric adenopathy by size criteria. Aorta and inferior vena cava are normal in size. Miscellaneous: No ventral hernias. PELVIS: Genitourinary: Bladder wall thickness is normal. The uterus demonstrates an unremarkable appearance for age. No adnexal masses are seen. No ovarian pathology is seen. Miscellaneous: No inguinal hernias or adenopathy. Bones: No suspicious bony lesions. No vertebral body compression fractures. There is focal L3-L4 d egenerative change. Minimal to mild dextroconvex scoliotic curvature is seen. IMPRESSION: No imaging explanation is found for the patient's presenting symptoms. Negative for left-sided hydronephrosis. No diverticulosis or diverticulitis. No adnexal masses or ovarian pathology can be seen. Incidental note is made of: Accessory splenule Normal appendix Focal L3-L4 degenerative change Reviewed by: Ronny Wise MD on 05/28/2021 10:14 AM AKST Approved by: Ronny Wise MD on 05/28/2021 10:14 AM [facility] Station ID: [id number]
== END 2021-05-28 08:54 | disposition home or self-care (01) ==
LOC: DI 08:53
PROVIDERS: ATTEND Emergency Medicine
DX: R10.32 Left lower quadrant pain (principal)
CPT/HCPCS: 74177; Q9967

== ENCOUNTER 2021-08-12 08:00 | Outpatient (CLI) | payer MEDICAID ==
[2021-08-12 20:19] LABS: BILIRUBIN,URINE NEGATIVE (NEGATIVE); GLUCOSE, URINE (UA) NEGATIVE (NEGATIVE); KETONES,URINE (UA) NEGATIVE (NEGATIVE); LEUKOCYTE ESTERASE, URINE TRACE (NEGATIVE); NITRITE,URINE NEGATIVE (NEGATIVE); OCCULT BLOOD,URINE NEGATIVE (NEGATIVE); PROTEIN,URINE NEGATIVE (NEGATIVE); UROBILINOGEN,URINE 0.2 (NORMAL) E.U./dL (NORMAL)
[2021-08-12 20:31] LABS: BACTERIA,URINE Few /HPF (None Seen); CLARITY,URINE CLEAR (CLEAR); RBC,URINE None Seen /HPF (0-5); SQUAMOUS EPITHELIAL CELL,UR FEW Squamous (<= Few); WBC,URINE 0-3 /HPF (0-5)
== END 2021-08-12 23:59 | disposition home or self-care (01) ==
LOC: LAB.S 08:00
PROVIDERS: ATTEND Physician Assistant
DX: R10.32 Left lower quadrant pain (principal); R39.15 Urgency of urination
CPT/HCPCS: 81001

== ENCOUNTER 2021-08-25 15:18 | Outpatient (CLI) | payer MEDICAID ==
--- NOTE | 2021-08-25 17:39 | Ultrasound Report ---
PROCEDURE: Pelvic Complete INDICATIONS: pelvic pain vaginal spotting TECHNIQUE: Real-time transabdominal scanning was performed of the pelvic organs, with image documentation. COMPARISON: CT of abdomen and pelvis dated 05/28/2021 FINDINGS: Uterus: Uterus is normal in size at 7.3 x 3.1 x 3.8 cm. Coarse myometrial echotexture is seen, no d iscrete uterine fibroid is seen. Endometrium measures 3.7 mm in combined thickness. No gross endomet rial mass or fluid. Ovaries: Right ovary measures 2 x 1.1 x 1.6 cm in size with a volume of 1.8 cc. Left ovary measures 2 .4 x 1.5 x 1.1 cm in size with a volume of 2 cc. Less than 12 follicles are seen in bilateral ovaries . No solid-appearing ovarian lesion. Other: No free pelvic fluid. IMPRESSION: Slightly coarse myometrial echotexture, no discrete uterine fibroid. Normal-appearing endometrium and bilateral ovaries. Reviewed by: Johny Sanders MD on 08/25/2021 5:37 PM PST Approved by: Johny Sanders MD on 08/25/2021 5:37 PM PST Station ID: [id number]
== END 2021-08-25 15:19 | disposition home or self-care (01) ==
LOC: DI 15:18
PROVIDERS: ATTEND Physician Assistant
DX: R10.32 Left lower quadrant pain (principal); N93.9 Abnormal uterine and vaginal bleeding, unspecified; R10.2 Pelvic and perineal pain

== ENCOUNTER 2021-08-29 07:00 | Outpatient (CLI) | payer MEDICAID ==
[2021-08-29 20:16] LABS: BASOPHILS # (AUTO) 0.1 10^3/uL (0.0-0.1); BASOPHILS % (AUTO) 0.6 %; EOSINOPHILS # (AUTO) 0.2 10^3/uL (0.0-0.7); HGB - HEMOGLOBIN 14.2 g/dL (12.0-16.0); LYMPHOCYTES # (AUTO) 2.9 10^3/uL (1.5-3.5); LYMPHOCYTES % (AUTO) 25.3 %; MEAN CORPUSCULAR HEMOGLOBIN 31.3 pg (27.0-31.0); MEAN CORPUSCULAR VOLUME 94.9 fL (81.0-99.0); MEAN PLATELET VOLUME 11.3 fL (7.9-10.8); MONOCYTES # (AUTO) 0.5 10^3/uL (0.0-1.0); MONOCYTES % (AUTO) 4.6 %; NEUTROPHILS # (AUTO) 7.7 10^3/uL (1.5-6.6); NEUTROPHILS % (AUTO) 67.3 %; PLT - PLATELET COUNT 248 10^3/uL (130-450); RED BLOOD COUNT 4.53 10^6/uL (4.20-5.40); RED CELL DISTRIBUTION WIDTH 13.7 % (12.0-15.0); WHITE BLOOD COUNT 11.5 x10^3/uL (4.8-10.8)
[2021-08-29 20:23] LABS: BILIRUBIN,URINE NEGATIVE (NEGATIVE); GLUCOSE, URINE (UA) NEGATIVE (NEGATIVE); KETONES,URINE (UA) NEGATIVE (NEGATIVE); LEUKOCYTE ESTERASE, URINE NEGATIVE (NEGATIVE); NITRITE,URINE NEGATIVE (NEGATIVE); OCCULT BLOOD,URINE NEGATIVE (NEGATIVE); PROTEIN,URINE NEGATIVE (NEGATIVE); UROBILINOGEN,URINE 0.2 (NORMAL) E.U./dL (NORMAL)
[2021-08-29 20:28] LABS: CLARITY,URINE CLEAR (CLEAR)
[2021-08-29 20:37] LABS: ALBUMIN 4.1 g/dL (3.2-5.5); ALBUMIN/GLOBULIN RATIO 1.3 (1.0-2.2); ALKALINE PHOSPHATASE 62 IU/L (42-121); ALT ALANINE AMINOTRANSFERASE 13 IU/L (10-60); AMYLASE 79 U/L (28-100); AST ASPARTATE AMINOTRANSFERASE 15 IU/L (10-42); BILIRUBIN,TOTAL 0.4 mg/dL (0.2-1.0); BUN - BLOOD UREA NITROGEN 8 mg/dL (6-20); CALCIUM 9.1 mg/dL (8.5-10.3); CARBON DIOXIDE - CO2 25 mmol/L (21-32); CHLORIDE 99 mmol/L (101-111); CHOL/HDL RATIO 2.9 (<4.4); CHOLESTEROL 192 mg/dL; CREATININE 0.7 mg/dL (0.4-1.0); GFR - MDRD 88 (>89); GLUCOSE 83 mg/dL (70-100); HDL CHOLESTEROL 66 mg/dL; LDL CHOLESTEROL,CALCULATED 104 mg/dL; LDL/HDL RATIO 1.6 (<4.4); LIPASE 42 U/L (22-51); POTASSIUM 3.8 mmol/L (3.5-5.0); SODIUM 134 mmol/L (135-145); TOTAL PROTEIN 7.2 g/dL (6.7-8.2); TRIGLYCERIDES 109 mg/dL; VLDL CHOLESTEROL 22 mg/dL
[2021-08-29 20:43] LABS: THYROID STIMULATING HORMONE 1.81 uIU/mL (0.34-5.60)
[2021-08-29 20:45] LABS: BACTERIA,URINE Rare /HPF (None Seen); RBC,URINE 0-5 /HPF (0-5); SQUAMOUS EPITHELIAL CELL,UR FEW Squamous (<= Few); WBC,URINE 0-3 /HPF (0-5)
[2021-08-30 09:09] LABS: ESTIMATED AVERAGE GLUCOSE 108 mg/dL (70-100); HEMOGLOBIN A1c% 5.4 % (4.27-6.07)
== END 2021-08-29 23:59 | disposition home or self-care (01) ==
LOC: LAB.S 07:00
PROVIDERS: ATTEND Nurse Practitioner
DX: R10.32 Left lower quadrant pain (principal); Z13.220 Encounter for screening for lipoid disorders; R53.83 Other fatigue; Z13.1 Encounter for screening for diabetes mellitus
CPT/HCPCS: 36415; 80050; 80061; 81001; 82150; 83036; 83690; 83721; 87086

== ENCOUNTER 2021-08-29 08:00 | Outpatient (CLI) | payer MEDICAID ==
--- NOTE | 2021-08-29 21:30 | XRAY Report ---
PROCEDURE: Elbow 2 View LT INDICATIONS: LEFT ELBOW PAIN TECHNIQUE: 2 views of the elbow were acquired. COMPARISON: None FINDINGS: Bones: No fractures or dislocations. No suspicious bony lesions. Soft tissues: No elbow joint effusion. No suspicious soft tissue calcifications. IMPRESSION: No evidence acute bony abnormality of the left elbow. If clinical suspicion and/or symptoms persist, further assessment with repeat plain films or advanced imaging (e.g., CT, MRI, or bone scan) may be helpful for further assessment. Reviewed by: Car Gordon MD on 08/29/2021 9:28 PM PST Approved by: Car Gordon MD on 08/29/2021 9:28 PM PST Station ID: [id number]
--- NOTE | 2021-08-29 21:31 | XRAY Report ---
PROCEDURE: Lumbar Spine 2 View INDICATIONS: SACROILIAC JOINT PAIN LEFT TECHNIQUE: 3 views of the lumbar spine were acquired. COMPARISON: None. FINDINGS: Bones: 5 [id number] vertebrae are present. There is normal bony alignment. No vertebral body compression fractures. No suspicious bony lesions. Mild multilevel degenerative disc space loss, mo st significant at L3-L4. Multilevel facet arthropathy. Soft tissues: Overlying bowel gas pattern is normal. No suspicious soft tissue calcifications. IMPRESSION: Multilevel lumbar facet arthropathy. Degenerative disc disease. No evidence acute bony a bnormality of the lumbar spine. If clinical suspicion and/or symptoms persist, further assessment with repeat plain films or advanced imaging (e.g., CT, MRI, or bone scan) may be helpful for further assessment. Reviewed by: Car Gordon MD on 08/29/2021 9:30 PM PST Approved by: Car Gordon MD on 08/29/2021 9:30 PM PST Station ID: [id number]
== END 2021-08-29 23:59 | disposition home or self-care (01) ==
LOC: DI.S 08:00
PROVIDERS: ATTEND Physician Assistant
DX: M25.522 Pain in left elbow (principal); M47.816 Spondylosis without myelopathy or radiculopathy, lumbar region; M51.36 Other intervertebral disc degeneration, lumbar region; R10.32 Left lower quadrant pain; Z13.220 Encounter for screening for lipoid disorders; R53.83 Other fatigue; Z13.1 Encounter for screening for diabetes mellitus
CPT/HCPCS: 36415; 80050; 80061; 81001; 82150; 83036; 83690; 83721; 87086

== ENCOUNTER 2021-08-29 14:43 | Outpatient (CLI) | payer MEDICAID | END 2021-08-29 14:44 | disposition home or self-care (01) | LOC: LAB.S 14:43 | PROVIDERS: ATTEND Nurse Practitioner | DX: R10.32 Left lower quadrant pain (principal); Z13.220 Encounter for screening for lipoid disorders; R53.83 Other fatigue; Z13.1 Encounter for screening for diabetes mellitus ==

== ENCOUNTER 2021-10-02 08:00 | Outpatient (CLI) | payer MEDICAID ==
[2021-10-02 18:28] LABS: ALBUMIN 4.4 g/dL (3.2-5.5); ALBUMIN/GLOBULIN RATIO 1.3 (1.0-2.2); BILIRUBIN,TOTAL 0.6 mg/dL (0.2-1.0); CALCIUM 9.5 mg/dL (8.5-10.3); CREATININE 0.7 mg/dL (0.4-1.0); POTASSIUM 3.2 mmol/L (3.5-5.0); TOTAL PROTEIN 7.9 g/dL (6.7-8.2)
== END 2021-10-02 23:59 | disposition home or self-care (01) ==
LOC: DI.S 08:00
PROVIDERS: ATTEND Nurse Practitioner
DX: G43.A0 Cyclical vomiting, in migraine, not intractable (principal)
CPT/HCPCS: 36415; 80053

== ENCOUNTER 2021-11-08 14:26 | Outpatient (CLI) | payer MEDICAID ==
[2021-11-08 20:06] LABS: BASOPHILS # (AUTO) 0.1 10^3/uL (0.0-0.1); BASOPHILS % (AUTO) 0.6 %; EOSINOPHILS # (AUTO) 0.1 10^3/uL (0.0-0.7); EOSINOPHILS % (AUTO) 1.3 %; HCT - HEMATOCRIT 41.2 % (37.0-47.0); HGB - HEMOGLOBIN 13.7 g/dL (12.0-16.0); LYMPHOCYTES % (AUTO) 28.5 %; MEAN CORPUSCULAR HEMOGLOBIN 31.6 pg (27.0-31.0); MEAN CORPUSCULAR HGB CONC 33.3 g/dL (32.0-36.0); MEAN CORPUSCULAR VOLUME 95.2 fL (81.0-99.0); MONOCYTES # (AUTO) 0.5 10^3/uL (0.0-1.0); MONOCYTES % (AUTO) 5.2 %; NEUTROPHILS # (AUTO) 6.7 10^3/uL (1.5-6.6); NEUTROPHILS % (AUTO) 64.2 %; PLT - PLATELET COUNT 269 10^3/uL (130-450); RED BLOOD COUNT 4.33 10^6/uL (4.20-5.40); RED CELL DISTRIBUTION WIDTH 13.7 % (12.0-15.0); WHITE BLOOD COUNT 10.4 x10^3/uL (4.8-10.8)
[2021-11-08 20:21] LABS: ALBUMIN 3.9 g/dL (3.2-5.5); ALBUMIN/GLOBULIN RATIO 1.3 (1.0-2.2); BILIRUBIN,TOTAL 0.4 mg/dL (0.2-1.0); CREATININE 0.6 mg/dL (0.4-1.0); MAGNESIUM 1.9 mg/dL (1.7-2.8); POTASSIUM 3.8 mmol/L (3.5-5.0); TOTAL PROTEIN 6.8 g/dL (6.7-8.2)
== END 2021-11-08 14:27 | disposition home or self-care (01) ==
LOC: LAB.S 14:26
PROVIDERS: ATTEND Nurse Practitioner Family
DX: R10.32 Left lower quadrant pain (principal); R74.8 Abnormal levels of other serum enzymes
CPT/HCPCS: 36415; 80053; 82150; 83690; 83735; 85025

== ENCOUNTER 2021-11-17 06:19 | Day surgery (SDC) | payer MEDICAID ==
[2021-11-17] MEDS ORDERED: LACTATED RINGERS 1,000 ML IV ONE (06:44)
--- NOTE | 2021-11-17 07:10 | ANESTHESIA ---
Pre-Anesthesia VS, & Labs - Diagnosis screening - Procedure colonoscopy Vital Signs: Temp Pulse Resp BP Pulse Ox 36 C L 87 16 102/69 97 11/17/21 06:27 11/17/21 06:27 11/17/21 06:27 11/17/21 06:27 11/17/21 06:27 Height: 5 ft 6 in Weight (kg): 59 kg Body Mass Index: 20.9 BMI Classification: Healthy weight - NPO >8 hours - Is Patient ?: No Home Medications and Allergies Allergies/Adverse Reactions: Allergies Allergy/AdvReac Type Severity Reaction Status Date / Time codeine [Codeine] Allergy Mild Nausea Verified 03/11/20 12:39 Anes History & Medical History - Anesthetic History Anesthesia Complications: reports: No previous complications - Medical History Cardiovascular: reports: None Pulmonary: reports: None Gastrointestinal: reports: GERD, GI bleed, Ulcers, Chronic diarrhea, Other Urinary: reports: Kidney stones Neuro: reports: None Musculoskeletal: reports: Osteoarthritis Endocrine/Autoimmune: reports: None Blood Disorders: reports: None Skin: reports: None Smoking Status: Current every day smoker History of Cancer?: No - Surgical History General: reports: Colonoscopy, EGD Exam General: Alert, Oriented x3 Dental: WNL Mouth Openin Fingerbreadth Neck Mobility: Normal Mallampati classification: II Thyromental Distance: greater than 6 cm Respiratory: Lungs clear Cardiovascular: Regular rate, Normal S1, Normal S2 Plan Anesthesia Type: Total IV Consent for Procedure(s) Verified and Reviewed: Yes Code Status: Attempt Resuscitation ASA classification: 2-Mild systemic disease Is this case an emergency?: No
--- NOTE | 2021-11-17 07:24 | HISTORY & PHYSICAL EXAMINATION ---
Chief Complaint - Chief Complaint Chief Complaint: here for colon cancer screening History of Present Illness - History Obtained From Records Reviewed: yes History obtained from: pt Exam Limitations: none - History of Present Illness HPI Comment/Other: intermittent epigastric symptoms. no symptoms now. here for colon cancer screening. longstanding history abdominal discomfort without significant change. 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 Social History Notes: pt report she still smokes cigarette, she denies alcohol issue. she report she smoke majuana occationally - Substance History Use: Uses substance without health or social issues: Tobacco - POLST Patient has POLST: No Meds/Allgy - Home Medications Home Medications: Ambulatory Orders Medication Instructions Recorded Confirmed Hydrocodone/Acetaminophen 1 - 2 each PO Q6H PRN #14 tablet 03/03/20 03/11/20 [Hydrocodone-Acetamin 5-325 mg] - Allergies Allergies/Adverse Reactions: Allergies Allergy/AdvReac Type Severity Reaction Status Date / Time codeine [Codeine] Allergy Mild Nausea Verified 03/11/20 12:39 Review of Systems - Other Findings Other Findings: 10 pt ros as above otherwise unremarkable Exam - Vital Signs Reviewed Vital Signs: Yes Vital Signs: Vital Signs x48h Temp Pulse Resp BP Pulse Ox 11/17/21 06:27 36 C L 87 16 102/69 97 - Physical Exam General Appearance: positive: No acute distress, Alert Eyes Bilateral: positive: PERRL, EOMI, No scleral icterus ENT: positive: No signs of dehydration Neck: positive: No JVD, Trachea midline Respiratory: positive: No respiratory distress, Breath sounds nml Cardiovascular: positive: Regular rate & rhythm Abdomen: positive: Non-tender, No distention Neurologic/Psychiatric: positive: Oriented x3 Conclusion/Plan - Problem List (1) Colon cancer screening Conclusion/Plan: plan colonoscopy. parq held and consent obtained
[2021-11-17] MEDS ORDERED: PROPOFOL 500 MG/50 ML 500 MG/50 ML VIAL ONE (07:49)
[2021-11-17] MEDS ORDERED: LIDOCAINE-MPF 2% 5 ML VIAL ONE (07:51)
[2021-11-17] MEDS ORDERED: LACTATED RINGERS 700 ML IV ONE (08:10)
[2021-11-17] MEDS ORDERED: ONDANSETRON 4 MG/2 ML VIAL ONE (08:23)
[2021-11-17 08:37] VITALS: BP 96/67
[2021-11-17] MEDS ORDERED: fentaNYL 100 MCG/2 ML VIAL ONE (10:06)
--- NOTE | 2021-11-17 12:54 | ANESTHESIA POST OP EVALUATION ---
Anesthesia Post Eval - Post Anesthesia Eval Vitals: Last Vital Signs Temp 36.3 C L 11/17/21 08:36 Pulse 70 11/17/21 08:36 Resp 16 11/17/21 08:36 BP 96/67 11/17/21 08:36 Pulse Ox 96 11/17/21 08:36 CV Function Including HR & BP: Stable Pain Control: Satisfactory Nausea & Vomiting: Negative Mental Status: Baseline Respiratory Status: Airway Patent Hydration Status: Satisfactory Anesthesia Complications: None
== END 2021-11-17 06:20 | disposition home or self-care (01) ==
LOC: SDS 06:19
PROVIDERS: ATTEND Surgery
PROC: 0DBL8ZZ Excision of Transverse Colon, Via Natural or Artificial Opening Endoscopic (ICD-10-PCS; 2021-11-17)
PROC: 0DBF8ZX Excision of Right Large Intestine, Via Natural or Artificial Opening Endoscopic, Diagnostic (ICD-10-PCS; 2021-11-17)
PROC: 0DBG8ZX Excision of Left Large Intestine, Via Natural or Artificial Opening Endoscopic, Diagnostic (ICD-10-PCS; 2021-11-17)
PROC: 0DBB8ZX Excision of Ileum, Via Natural or Artificial Opening Endoscopic, Diagnostic (ICD-10-PCS; principal; 2021-11-17 07:30)
DX: Z12.11 Encounter for screening for malignant neoplasm of colon (principal); D12.3 Benign neoplasm of transverse colon; K57.30 Diverticulosis of large intestine without perforation or abscess without bleeding; F17.210 Nicotine dependence, cigarettes, uncomplicated; Z92.83 Personal history of failed moderate sedation
CPT/HCPCS: 45380; J7120

== ENCOUNTER 2021-12-18 15:17 | Outpatient (CLI) | payer MEDICAID ==
--- NOTE | 2021-12-19 10:58 | Mammography Report ---
BILATERAL DIGITAL SCREENING MAMMOGRAM 3D/2D: 12/18/2021 CLINICAL: Routine screening. Family history of breast cancer. Comparison is made to exams dated: 08/17/2020 mammogram and 05/01/2018 mammogram - [facility]. There are scattered fibroglandular elements in both breasts. There is a benign intramammary node in both breasts. No significant masses, calcifications, or other findings are seen in either breast. There has been no significant interval change. IMPRESSION: BENIGN There is no mammographic evidence of malignancy. A 1 year screening mammogram is recommended. This exam was interpreted at Station ID: [id number]. NOTE: For mammograms, a report in lay terms will be sent to the patient. Approximately 15% of breast malignancies will not be visualized mammographically. In the management of a palpable breast mass, a negative mammogram must not discourage biopsy of a clinically suspicious lesion. Electronically Signed By: Yovany Cabral M.D. aty/penrad:12/19/2021 07:36:51 ACR BI-RADS Category 2: Benign Finding(s) 3342F PARENCHYMAL PATTERN: (A) - The breast(s) demonstrate(s) scattered fibroglandular densities. BI-RADS CATEGORY: (2) - 2 RECOMMENDATION: (ANNUAL) - Recommend routine annual screening mammography. [id number] 1 year screening LATERALITY: (B)
== END 2021-12-18 15:18 | disposition home or self-care (01) ==
LOC: DI.S 15:17
PROVIDERS: ATTEND Nurse Practitioner
DX: Z12.31 Encounter for screening mammogram for malignant neoplasm of breast (principal); Z80.3 Family history of malignant neoplasm of breast

== ENCOUNTER 2022-10-25 07:24 | Outpatient (CLI) | payer MEDICAID ==
[2022-10-25 14:36] LABS: BASOPHILS # (AUTO) 0.1 10^3/uL (0.0-0.1); BASOPHILS % (AUTO) 0.9 %; EOSINOPHILS # (AUTO) 0.3 10^3/uL (0.0-0.7); EOSINOPHILS % (AUTO) 2.8 %; HCT - HEMATOCRIT 43.3 % (37.0-47.0); HGB - HEMOGLOBIN 14.2 g/dL (12.0-16.0); LYMPHOCYTES # (AUTO) 2.4 10^3/uL (1.5-3.5); MEAN CORPUSCULAR HEMOGLOBIN 31.6 pg (27.0-31.0); MEAN CORPUSCULAR HGB CONC 32.8 g/dL (32.0-36.0); MEAN CORPUSCULAR VOLUME 96.4 fL (81.0-99.0); MEAN PLATELET VOLUME 11.3 fL (7.9-10.8); MONOCYTES # (AUTO) 0.5 10^3/uL (0.0-1.0); MONOCYTES % (AUTO) 5.8 %; NEUTROPHILS % (AUTO) 64.3 %; PLT - PLATELET COUNT 239 10^3/uL (130-450); RED BLOOD COUNT 4.49 10^6/uL (4.20-5.40); WHITE BLOOD COUNT 9.3 x10^3/uL (4.8-10.8)
[2022-10-25 14:37] LABS: BILIRUBIN,URINE NEGATIVE (NEGATIVE); GLUCOSE, URINE (UA) NEGATIVE (NEGATIVE); KETONES,URINE (UA) NEGATIVE (NEGATIVE); LEUKOCYTE ESTERASE, URINE NEGATIVE (NEGATIVE); NITRITE,URINE NEGATIVE (NEGATIVE); OCCULT BLOOD,URINE NEGATIVE (NEGATIVE); PROTEIN,URINE NEGATIVE (NEGATIVE); UROBILINOGEN,URINE 0.2 (NORMAL) E.U./dL (NORMAL)
[2022-10-25 14:44] LABS: BACTERIA,URINE Rare /HPF (None Seen); CLARITY,URINE CLEAR (CLEAR); CRYSTALS,URINE 0-2 Calcium Oxalate /LPF; RBC,URINE 0-5 /HPF (0-5); SQUAMOUS EPITHELIAL CELL,UR RARE Squamous (<= Few); WBC,URINE 0-3 /HPF (0-5)
[2022-10-25 14:56] LABS: ALBUMIN 3.8 g/dL (3.2-5.5); ALBUMIN/GLOBULIN RATIO 1.2 (1.0-2.2); ALKALINE PHOSPHATASE 63 IU/L (42-121); ALT ALANINE AMINOTRANSFERASE 13 IU/L (10-60); AST ASPARTATE AMINOTRANSFERASE 12 IU/L (10-42); BILIRUBIN,TOTAL 0.6 mg/dL (0.2-1.0); BUN - BLOOD UREA NITROGEN 17 mg/dL (6-20); CALCIUM 8.5 mg/dL (8.5-10.3); CARBON DIOXIDE - CO2 24 mmol/L (21-32); CHLORIDE 106 mmol/L (101-111); CHOLESTEROL 172 mg/dL; CREATININE 0.7 mg/dL (0.4-1.0); GFR - MDRD 88 (>89); GLUCOSE 111 mg/dL (70-100); HDL CHOLESTEROL 57 mg/dL; LDL CHOLESTEROL,CALCULATED 100 mg/dL; LDL/HDL RATIO 1.8 (<4.4); LIPASE 132 U/L (22-51); POTASSIUM 3.9 mmol/L (3.5-5.0); SODIUM 136 mmol/L (135-145); TOTAL PROTEIN 6.9 g/dL (6.7-8.2); TRIGLYCERIDES 77 mg/dL; VLDL CHOLESTEROL 15 mg/dL
== END 2022-10-25 07:25 | disposition home or self-care (01) ==
LOC: LAB.S 07:24
PROVIDERS: ATTEND Emergency Medicine
DX: R10.11 Right upper quadrant pain (principal); Z13.220 Encounter for screening for lipoid disorders
CPT/HCPCS: 36415; 80053; 80061; 81001; 83690; 83721; 85025; 87086

== ENCOUNTER 2022-10-30 19:12 | Emergency (ER) | payer MEDICAID ==
[2022-10-30] MEDS ORDERED: SODIUM CHLORIDE 0.9% 1,000 ML IV STA (19:38)
--- NOTE | 2022-10-30 19:39 | ED Physician Documentation ---
PD HPI ABD PAIN - Stated complaint Stated Complaint: N/V/D - Chief complaint Chief Complaint: Abd Pain - History obtained from History obtained from: Patient - Additional information Additional information: 52-year-old woman who few years ago is here relatively frequently for abdominal pain. We presumed cannabinoid hyperemesis. For the last couple of years she has been much better, she says that with menopause the attacks of abdominal pain and vomiting went away. The last 2 weeks she has had several episodes of vomiting and diarrhea. She had 4 days where she was vomiting and having diarrhea. Been going on since 6 AM today. Associated with central abdominal pain. No blood from either end. She says this is very different than the attacks she used to have a few years ago. 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 : Kidney stones HEENT: None Psych: Anxiety, Panic attacks Musculoskeletal: Osteoarthritis Derm: None - Past Surgical History Past Surgical History: Yes General: Colonoscopy, EGD - Present Medications Home Medications: Ambulatory Orders Medication Instructions Recorded Confirmed Hydrocodone/Acetaminophen 1 - 2 each PO Q6H PRN #14 tablet 03/03/20 03/11/20 [Hydrocodone-Acetamin 5-325 mg] - Allergies Allergies/Adverse Reactions: Allergies Allergy/AdvReac Type Severity Reaction Status Date / Time codeine [Codeine] Allergy Mild Nausea Verified 10/30/22 19:15 - Social History Does the pt smoke?: Yes Smoking Status: Current every day smoker Does the pt drink ETOH?: No Does the pt have substance abuse?: Yes - Immunizations Immunizations are current?: Yes - POLST Patient has POLST: No PD ED PE NORMAL - Vitals Vital signs reviewed: Yes - General General: Alert and oriented X 3, Other (Retching and anxious) - Neck Neck: Supple, no meningeal sign - Cardiac Cardiac: RRR, No murmur - Respiratory Respiratory: No respiratory distress, Clear bilaterally - Abdomen Abdomen: Normal bowel sounds, Soft, Non tender - Neuro Neuro: Alert and oriented X 3, Normal speech Results - Vitals Vitals: Vital Signs - 24 hr 10/30/22 10/30/22 10/30/22 19:15 20:51 21:54 Temperature 36.5 C Heart Rate 68 69 66 Respiratory 20 16 15 Rate Blood Pressure 144/100 H 129/34 L 117/62 O2 Saturation 97 100 96 Oxygen O2 Source Room air - Labs Labs: Laboratory Tests 10/30/22 10/30/22 19:52 19:52 WBC 13.1 H RBC 4.89 Hgb 15.2 Hct 46.1 MCV 94.3 MCH 31.1 H MCHC 33.0 RDW 13.7 Plt Count 284 MPV 10.3 Neut # (Auto) 11.1 H Lymph # (Auto) 1.5 [place] # (Auto) 0.4 Eos # (Auto) 0.0 Baso # (Auto) 0.0 Absolute Nucleated RBC 0.00 Nucleated RBC % 0.0 Sodium 144 Potassium 3.6 Chloride 111 Carbon Dioxide 21 Anion Gap 12.0 BUN 13 Creatinine 0.7 Estimated GFR (MDRD) 88 L Glucose 192 H Calcium 9.5 Magnesium 1.8 Total Bilirubin 0.7 AST 18 ALT 17 Alkaline Phosphatase 72 Total Protein 7.9 Albumin 4.4 Globulin 3.5 Albumin/Globulin Ratio 1.3 Lipase 65 H PD Medical Decision Making - ED course Complexity details: reviewed results (CBC mild leukocytosis, CMP nl.) ED course: Care to Dr Mahmood at 10p chg of shift pending CT read. Departure - Departure Disposition: 01 Home, Self Care Clinical Impression: Abdominal pain, Diarrhea Condition: Stable Instructions: Abdominal Pain Comments: You were seen in the emergency department for abdominal pain and diarrhea. Your CT showed some mild inflammation in the intestines which could mean you have a stomach bug (viral gastroenteritis). Make sure to rest, hydrate, and drink adult electrolyte solution or pedialyte. Please follow-up with your primary care provider. Return to the emergency department for new or worsening symptoms or other concerns. Discharge Date/Time: 10/30/22 21:55
[2022-10-30] MEDS ORDERED: KETOROLAC 15 MG/ML VIAL IVP STA (19:40)
[2022-10-30] MEDS ORDERED: HALOPERIDOL 5 MG/ML VIAL IVP STA (19:40)
[2022-10-30 19:57] LABS: BASOPHILS % (AUTO) 0.3 %; EOSINOPHILS % (AUTO) 0.2 %; HCT - HEMATOCRIT 46.1 % (37.0-47.0); HGB - HEMOGLOBIN 15.2 g/dL (12.0-16.0); LYMPHOCYTES # (AUTO) 1.5 10^3/uL (1.5-3.5); LYMPHOCYTES % (AUTO) 11.1 %; MEAN CORPUSCULAR HEMOGLOBIN 31.1 pg (27.0-31.0); MEAN CORPUSCULAR VOLUME 94.3 fL (81.0-99.0); MEAN PLATELET VOLUME 10.3 fL (7.9-10.8); MONOCYTES # (AUTO) 0.4 10^3/uL (0.0-1.0); MONOCYTES % (AUTO) 2.9 %; NEUTROPHILS # (AUTO) 11.1 10^3/uL (1.5-6.6); PLT - PLATELET COUNT 284 10^3/uL (130-450); RED BLOOD COUNT 4.89 10^6/uL (4.20-5.40); RED CELL DISTRIBUTION WIDTH 13.7 % (12.0-15.0); WHITE BLOOD COUNT 13.1 x10^3/uL (4.8-10.8)
[2022-10-30 20:20] LABS: ALBUMIN 4.4 g/dL (3.2-5.5); ALBUMIN/GLOBULIN RATIO 1.3 (1.0-2.2); BILIRUBIN,TOTAL 0.7 mg/dL (0.2-1.0); CALCIUM 9.5 mg/dL (8.5-10.3); CREATININE 0.7 mg/dL (0.4-1.0); MAGNESIUM 1.8 mg/dL (1.7-2.8); POTASSIUM 3.6 mmol/L (3.5-5.0); TOTAL PROTEIN 7.9 g/dL (6.7-8.2)
[2022-10-30] MEDS ORDERED: iohexoL-300 100 ML VIAL ONE (20:25)
[2022-10-30] MEDS ORDERED: iohexoL-300 100 ML VIAL IVP ONE (20:48)
[2022-10-30] MEDS ORDERED: METOCLOPRAMIDE 10 MG/2 ML VIAL IVP STA (20:58)
[2022-10-30] MEDS ORDERED: LORazepam 2 MG/ML VIAL IVP STA (20:59)
--- NOTE | 2022-10-30 21:40 | CT Report ---
PROCEDURE: ABDOMEN/PELVIS W INDICATIONS: abd pain CONTRAST: 100mL Omni 300 TECHNIQUE: After the administration of intravenous contrast, 5 mm thick sections acquired from the diaphragms to the symphysis. 5 mm thick coronal and sagittal reformats were acquired. For radiation dose reducti on, the following was used: automated exposure control, adjustment of mA and/or kV according to asif ent size. COMPARISON: CT abdomen pelvis 05/28/2021 FINDINGS: Image quality: Excellent. Lung bases:There is minimal dependent atelectasis. Heart: Heart is normal in size. ABDOMEN: Liver: No mass lesion. Gallbladder: Within normal limits without calcified gallstones. Biliary ducts: No biliary ductal dilatation. Pancreas: Unremarkable. Spleen: Normal in size. Adrenal Glands: No adrenal nodules. Kidneys and Ureters: No hydronephrosis. Stomach and Bowel: Stomach and small bowel loops are normal in caliber and wall thickness. Appendix appears within normal limits. There is diffuse nondistention of the colon proximal to the rectosigmoi d colon with mild wall thickening. Peritoneum: No abnormal intraperitoneal fluid. No free air. Ventral Wall: No hernia. Abdominal Nodes: No retroperitoneal or mesenteric adenopathy by size criteria. Vessels: Aorta and inferior vena cava are normal in size. PELVIS: Pelvic Organs: Unremarkable. Bladder: Unremarkable. Pelvic Nodes: No enlarged lymph nodes. Miscellaneous: No inguinal hernias. Bones: Visualized osseous structures demonstrate no suspicious lesions. IMPRESSION: 1. Mild diffuse colonic wall thickening and nondistention suggestive of a mild colitis. Reviewed by: Robin Mcmillan MD on 10/30/2022 9:39 PM PDT Approved by: Robin Mcmillan MD on 10/30/2022 9:39 PM PDT Station ID: [id number]
[2022-10-30 21:57] VITALS: BP 117/62
== END 2022-10-30 21:55 | disposition home or self-care (01) ==
LOC: ED 19:12
DX: R11.0 Nausea (principal); R19.7 Diarrhea, unspecified; F17.200 Nicotine dependence, unspecified, uncomplicated
CPT/HCPCS: 36415; 74177; 80053; 83690; 83735; 85025; 96374; 96375; 99283; 99285; J2060; J2765; Q9967

== ENCOUNTER 2023-04-21 07:00 | Outpatient (CLI) | payer MEDICAID | END 2023-04-21 23:59 | disposition home or self-care (01) | LOC: LAB.S 07:00 | PROVIDERS: ATTEND Physician Assistant | DX: R10.9 Unspecified abdominal pain (principal) | CPT/HCPCS: 87086 ==

== ENCOUNTER 2023-04-23 12:52 | Emergency (ER) | payer MEDICAID ==
[2023-04-23 13:11] VITALS: BP 106/77; O2SAT 98
[2023-04-23 13:36] LABS: BASOPHILS # (AUTO) 0.1 10^3/uL (0.0-0.1); BASOPHILS % (AUTO) 0.7 %; EOSINOPHILS # (AUTO) 0.2 10^3/uL (0.0-0.7); EOSINOPHILS % (AUTO) 2.3 %; HCT - HEMATOCRIT 42.3 % (37.0-47.0); HGB - HEMOGLOBIN 14.3 g/dL (12.0-16.0); LYMPHOCYTES # (AUTO) 2.3 10^3/uL (1.5-3.5); MEAN CORPUSCULAR HEMOGLOBIN 31.8 pg (27.0-31.0); MEAN CORPUSCULAR HGB CONC 33.8 g/dL (32.0-36.0); MEAN PLATELET VOLUME 9.9 fL (7.9-10.8); MONOCYTES # (AUTO) 0.5 10^3/uL (0.0-1.0); MONOCYTES % (AUTO) 5.5 %; NEUTROPHILS # (AUTO) 5.7 10^3/uL (1.5-6.6); NEUTROPHILS % (AUTO) 65.3 %; PLT - PLATELET COUNT 225 10^3/uL (130-450); RED CELL DISTRIBUTION WIDTH 13.8 % (12.0-15.0); WHITE BLOOD COUNT 8.8 x10^3/uL (4.8-10.8)
[2023-04-23 13:49] LABS: ALBUMIN 4.3 g/dL (3.2-5.5); ALBUMIN/GLOBULIN RATIO 1.7 (1.0-2.2); BILIRUBIN,TOTAL 0.3 mg/dL (0.2-1.0); CALCIUM 9.2 mg/dL (8.5-10.3); CREATININE 0.7 mg/dL (0.6-1.3); POTASSIUM 3.9 mmol/L (3.5-4.5); TOTAL PROTEIN 6.8 g/dL (6.4-8.9)
[2023-04-23 14:36] LABS: BILIRUBIN,URINE NEGATIVE (NEGATIVE); GLUCOSE, URINE (UA) NEGATIVE (NEGATIVE); KETONES,URINE (UA) NEGATIVE (NEGATIVE); LEUKOCYTE ESTERASE, URINE NEGATIVE (NEGATIVE); NITRITE,URINE NEGATIVE (NEGATIVE); OCCULT BLOOD,URINE NEGATIVE (NEGATIVE); PROTEIN,URINE NEGATIVE (NEGATIVE); UROBILINOGEN,URINE 0.2 (NORMAL) E.U./dL (NORMAL)
[2023-04-23 14:38] LABS: CLARITY,URINE CLEAR (CLEAR); HCG UR QUAL NEGATIVE
[2023-04-23] MEDS ORDERED: KETOROLAC 30 MG/ML VIAL IVP STA (17:03)
[2023-04-23] MEDS ORDERED: SODIUM CHLORIDE 0.9% 1,000 ML IV STA (17:03)
--- NOTE | 2023-04-23 17:11 | ED Physician Documentation ---
History of Present Illness - Stated complaint Stated Complaint: CHEST PX - Chief complaint Chief Complaint: Abd Pain - Additonal information Additional information: She comes to the ED today because she has had about 3 weeks of left-sided chest pain that radiates from under her breast up into her axilla and down her left flank. Sometimes worse with breathing. She has a cough that she attributes to tobacco use. No fevers or hemoptysis. Reports that the pain in her abdomen has been fairly constant. Not better or worse with urination or defecation. No melena or hematochezia. Patient states that she was told sometime ago she had nodules in her lung though she did not follow-up as she was asymptomatic. Review of Systems Constitutional: denies: Fever Throat: reports: Reviewed and negative Cardiac: reports: Chest pain / pressure, Palpitations. 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 : Kidney stones HEENT: None Psych: Anxiety, Panic attacks Musculoskeletal: Osteoarthritis Derm: None - Past Surgical History Past Surgical History: Yes General: Colonoscopy, EGD - Present Medications Home Medications: Ambulatory Orders Medication Instructions Recorded Confirmed Ciprofloxacin HCl [Cipro] 500 mg PO DAILY 04/23/23 04/23/23 - Allergies Allergies/Adverse Reactions: Allergies Allergy/AdvReac Type Severity Reaction Status Date / Time codeine [Codeine] Allergy Mild Nausea Verified 10/30/22 19:15 - Social History Does the pt smoke?: Yes Smoking Status: Current every day smoker Does the pt drink ETOH?: No Does the pt have substance abuse?: Yes - Immunizations Immunizations are current?: Yes - POLST Patient has POLST: No PD ED PE NORMAL - General General: Alert and oriented X 3, No acute distress, Well developed/nourished - HEENT HEENT: Atraumatic, Moist mucous membranes - Neck Neck: Supple, no meningeal sign, No adenopathy - Cardiac Cardiac: RRR, No murmur, Other (Reproducible left lateral and anterior chest wall pain with palpation. No rash. No swelling crepitus or ecchymosis.) - Respiratory Respiratory: No respiratory distress, Clear bilaterally - Abdomen Abdomen: Normal bowel sounds - Back Back: No CVA TTP - Derm Derm: Normal color, Warm and dry - Extremities Extremities: No deformity - Neuro Neuro: Alert and oriented X 3 Eye Opening: Spontaneous Motor: Obeys Commands Verbal: Oriented GCS Score: 15 Results - Vitals Vitals: Vital Signs - 24 hr 04/23/23 13:01 Temperature 37.2 C Heart Rate 90 Respiratory 20 Rate Blood Pressure 106/77 O2 Saturation 98 Oxygen O2 Source Room air - EKG (time done) 1710 EKG releavant findings:: EKG personally interpreted by author of this note. Relevant findings are: Rate: Rate (enter#) (61) Rhythm: NSR [place]: Normal Intervals: Normal MI. No: Prolonged QT QRS: Normal Ischemia: Normal ST segments Compare to prior EKG: Unchanged from prior EKG Computer interpretation: Agree with computer - Labs Labs: Laboratory Tests 04/23/23 04/23/23 04/23/23 13:32 13:32 14:30 WBC 8.8 RBC 4.50 Hgb 14.3 Hct 42.3 MCV 94.0 MCH 31.8 H MCHC 33.8 RDW 13.8 Plt Count 225 MPV 9.9 Neut # (Auto) 5.7 Lymph # (Auto) 2.3 [place] # (Auto) 0.5 Eos # (Auto) 0.2 Baso # (Auto) 0.1 Absolute Nucleated RBC 0.00 Nucleated RBC % 0.0 Sodium 137 Potassium 3.9 Chloride 105 Carbon Dioxide 27 Anion Gap 5.0 L BUN 10 Creatinine 0.7 Estimated GFR (MDRD) 88 L Glucose 91 Calcium 9.2 Total Bilirubin 0.3 AST 12 ALT 9 L Alkaline Phosphatase 63 Troponin I High Sens Total Protein 6.8 Albumin 4.3 Globulin 2.5 Albumin/Globulin Ratio 1.7 Lipase 241 H Urine Color YELLOW Urine Clarity CLEAR Urine pH 6.0 Ur Specific [place] 1.020 Urine Protein NEGATIVE Urine Glucose (UA) NEGATIVE Urine Ketones NEGATIVE Urine Occult Blood NEGATIVE Urine Nitrite NEGATIVE Urine Bilirubin NEGATIVE Urine Urobilinogen 0.2 (NORMAL) Ur Leukocyte Esterase NEGATIVE Ur Microscopic Review NOT INDICATED Urine Culture Comments NOT INDICATED Urine HCG, Qual NEGATIVE 04/23/23 17:32 WBC RBC Hgb Hct MCV MCH MCHC RDW Plt Count MPV Neut # (Auto) Lymph # (Auto) [place] # (Auto) Eos # (Auto) Baso # (Auto) Absolute Nucleated RBC Nucleated RBC % Sodium Potassium Chloride Carbon Dioxide Anion Gap BUN Creatinine Estimated GFR (MDRD) Glucose Calcium Total Bilirubin AST ALT Alkaline Phosphatase Troponin I High Sens < 2.3 L Total Protein Albumin Globulin Albumin/Globulin Ratio Lipase Urine Color Urine Clarity Urine pH Ur Specific [place] Urine Protein Urine Glucose (UA) Urine Ketones Urine Occult Blood Urine Nitrite Urine Bilirubin Urine Urobilinogen Ur Leukocyte Esterase Ur Microscopic Review Urine Culture Comments Urine HCG, Qual - Rads (name of study) CT chest angio Relevant Findings:: Final report received (No pulmonary embolus. Pulmonary nodules measuring up to 7 mm. Recommend 6-month CT scan. Nonspecific bilateral hilar lymph nodes measuring up to 1.3 cm may be reactive in the absence of known malignancy.) Ct abd Relevant Findings:: Final report received (Previous described colitis has resolved. No imaging explanation is found for the patient's presenting symptoms.) PD Medical Decision Making - ED course Complexity details: reviewed results, re-evaluated patient, d/w patient ED course: 52-year-old female presents emergency department for evaluation of several weeks left-sided chest pain left-sided abdominal pain. There is some pleuritic component. Also reports that she is a smoker with previous history of known nodules that have not been followed up. On presentation the emergency department she is alert and well-appearing. The chest pain was reproducible. Chest x-ray showed no findings of pneumonia, pneumothorax or pleural effusion. No recent vomiting, unlikely esophageal rupture EKG was nonischemic and essentially unchanged. High-sensitivity troponin negative. Essentially ruling out ACS. Given her age and the pleuritic component PE could not be ruled out. Pulmonary angio was obtained which did not show PEs but does show persistent pulmonary nodules largest being 7 mm. Given her history of tobacco use as well as some associated hilar lymphadenopathy patient is advised to have CT follow-up within 6 months to rule out the possibility of malignancy. Otherwise her labs today in the emergency department were essentially negative though we do note a lipase of 241. Previous lipase have been elevated and this is within range of that. The CT of the abdomen showed no findings suggestive pancreatitis or other acute abdominal pathology. She is discharged home in stable condition with usual emergent return precautions discussed for worsening symptoms. Departure - Departure Disposition: 01 Home, Self Care Clinical Impression: Left-sided chest pain, Left sided abdominal pain, Pulmonary nodules, Lymphadenopathy, hilar Condition: Stable Record reviewed to determine appropriate education?: Yes Follow-Up: Elier Sierra MD [Primary Care Provider] - Comments: you were Seen today in the emergency department for several weeks of left-sided chest and abdominal pain. Your EKG today does not show signs of a heart attack. Your chest x-ray was normal. Your labs today were essentially normal though your lipase was 241. This is within the range of where its been in the past. We did do a CT angiogram of your chest to rule out a pulmonary embolus. There was no pulmonary embolism but you do have some enlarged pulmonary nodules with the largest being in the left lobe measuring 7 mm. Because you are a smoker it is critical that you get a 6-month follow-up CT scan. There are also some hilar lymph nodes in your chest that were enlarged. This can be something that simply due to mild upper respiratory infections though as a smoker it can also be a sign of early malignancy. Please discuss this ED visit with Dr. Roy as soon as you can. Return to the ER for any new or worsening symptoms. Forms: PCP List
[2023-04-23] MEDS ORDERED: iohexoL-300 100 ML VIAL IVP ONE (18:04)
--- NOTE | 2023-04-23 18:54 | CT Report ---
PROCEDURE: ABDOMEN/PELVIS W INDICATIONS: left flank pain CONTRAST: 100mL Omni 300 TECHNIQUE: After the administration of IV contrast, 5 mm thick sections acquired from the diaphragms to the symp hysis. 5 mm thick coronal and sagittal reformats were acquired. For radiation dose reduction, the f ollowing was used: automated exposure control, adjustment of mA and/or kV according to patient size. COMPARISON: 10/30/2022. Correlation is made with the accompanying chest CT. FINDINGS: Image quality: Excellent. Lung bases and heart: Unremarkable. Liver: No solid mass. Gallbladder and biliary tree: Within normal limits. Spleen: No splenomegaly. An accessory splenule is incidentally noted along the anterior aspect of th e primary spleen. Pancreas: No pancreatic ductal dilation. Adrenals: No adrenal nodule. Kidneys and ureters: No hydronephrosis. No renal cystic lesion which requires follow up. No solid mas s. Bowel and peritoneum: No bowel distension. No pathologic free fluid. Lymph nodes: No central or retroperitoneal adenopathy. Vessels: No infrarenal aortic aneurysm. PELVIS Reproductive organs: The periventricular is seen along the endometrial stripe as well as within the e ndocervical canal, which is not regarded to be frankly pathologic. No adnexal masses are seen on eith er side. Bladder: No abnormal wall thickening, accounting for underdistension. Pelvic lymph nodes: No pelvic adenopathy by size criteria. Bones: No aggressive osseous abnormality. Focal L3-L4 degenerative change is seen. Milder degenerativ e changes are seen elsewhere. Other: No significant ventral or inguinal hernia. IMPRESSION: No imaging explanation is found for the patient's presenting symptoms. The previously described colitis has resolved. Additional findings: Accessory splenule Focal L3-L4 degenerative change Reviewed by: Ronny Wise MD on 04/23/2023 5:53 PM AKDT Approved by: Ronny Wise MD on 04/23/2023 5:53 PM AKDT Station ID: [id number]
--- NOTE | 2023-04-23 18:55 | CT Report ---
PROCEDURE: ANGIO CHEST W/WO INDICATIONS: pleuritic pain; r/o PE; doubt Ao CONTRAST: 100mL Omni 300 TECHNIQUE: After the administration of intravenous contrast, 2 mm axial images were acquired from the pulmonary apices to the posterior costophrenic angles during the arterial phase. In addition, 1 mm lung kernel and 5 mm soft tissue kernel reconstructions were performed. 3-dimensional coronal oblique maximum int ensity projection (MIP) reformats, 8 mm axial MIP, and 5 mm coronal and sagittal MPR reformats were t hen performed through the thorax. For radiation dose reduction, the following was used: automated exp osure control, adjustment of mA and/or kV according to patient size. COMPARISON: None FINDINGS: Image quality: Excellent. Large vessels: No filling defects within the opacified pulmonary arteries, accounting for motion and contrast timing. No evidence of acute aortic syndrome or aortic aneurysm. Lungs and pleura: Mild centrilobular and paraseptal emphysematous changes. No consolidation. No pleur al effusions. No pneumothorax. Right middle lobe 5 mm pulmonary nodule (3/204). Left lower lobe 7 mm pulmonary nodule (3/233). Mediastinum: Heart size is normal. No pericardial effusion. No large vessel abnormality. Prominent an d enlarged bilateral hilar lymph nodes measuring up to 1.3 cm. Chest wall and lower neck: Thyroid is unremarkable. No axillary or supraclavicular adenopathy by size . Bones: No aggressive osseous abnormality. Mild degenerative changes of the spine. Upper Abdomen: Please refer to separately dictated CT of the abdomen.. IMPRESSION: 1.No pulmonary embolus. 2.Pulmonary nodules measuring up to 7 mm. Per Fleischner criteria, recommend 6-12 month follow-up CT scan. 3.Nonspecific bilateral hilar lymph nodes measuring up to 1.3 cm, may be reactive in the absence of k nown malignancy. Reviewed by: Delvis Echols MD on 04/23/2023 6:53 PM PDT Approved by: Delvis Echols MD on 04/23/2023 6:53 PM PDT Station ID: [id number]
== END 2023-04-23 19:52 | disposition home or self-care (01) ==
LOC: ED 12:52
DX: R07.9 Chest pain, unspecified (principal); R59.1 Generalized enlarged lymph nodes; R91.8 Other nonspecific abnormal finding of lung field; R10.9 Unspecified abdominal pain; F17.200 Nicotine dependence, unspecified, uncomplicated
CPT/HCPCS: 36415; 71275; 74177; 80053; 81003; 81025; 83690; 84484; 85025; 93005; 96374; 99284; Q9967; 81001; 87086

== ENCOUNTER 2023-05-23 13:26 | Outpatient (CLI) | payer MEDICAID ==
[2023-05-23 19:49] LABS: HCT - HEMATOCRIT 42.4 % (37.0-47.0); HGB - HEMOGLOBIN 13.8 g/dL (12.0-16.0); MEAN CORPUSCULAR HEMOGLOBIN 31.7 pg (27.0-31.0); MEAN CORPUSCULAR HGB CONC 32.5 g/dL (32.0-36.0); MEAN CORPUSCULAR VOLUME 97.2 fL (81.0-99.0); MEAN PLATELET VOLUME 11.1 fL (7.9-10.8); RED BLOOD COUNT 4.36 10^6/uL (4.20-5.40); RED CELL DISTRIBUTION WIDTH 13.9 % (12.0-15.0); WHITE BLOOD COUNT 9.8 x10^3/uL (4.8-10.8)
[2023-05-23 20:10] LABS: ALBUMIN 4.3 g/dL (3.2-5.5); ALBUMIN/GLOBULIN RATIO 1.7 (1.0-2.2); ALKALINE PHOSPHATASE 68 IU/L (42-121); ALT ALANINE AMINOTRANSFERASE 10 IU/L (10-60); AST ASPARTATE AMINOTRANSFERASE 13 IU/L (10-42); BILIRUBIN,TOTAL 0.3 mg/dL (0.2-1.0); BUN - BLOOD UREA NITROGEN 10 mg/dL (6-20); CALCIUM 9.2 mg/dL (8.5-10.3); CARBON DIOXIDE - CO2 25 mmol/L (21-32); CHLORIDE 105 mmol/L (101-111); CREATININE 0.7 mg/dL (0.6-1.3); CRP - C-REACTIVE PROTEIN < 0.5 mg/dL (<0.5); GFR - MDRD 88 (>89); GLUCOSE 88 mg/dL (74-104); LIPASE 35 U/L (11-82); POTASSIUM 3.7 mmol/L (3.5-4.5); SODIUM 137 mmol/L (135-145); TOTAL PROTEIN 6.9 g/dL (6.4-8.9)
[2023-05-25 08:09] LABS: HIV SCREEN 4TH GENERATION Non Reactive (Non Reactive)
[2023-05-27 19:07] LABS: ANGIOTENSIN-CONVERTING ENZYME 50 U/L (14-82)
[2023-05-29 09:09] LABS: ANTINUCLEAR ANTIBODIES IFA Negative (.)
== END 2023-05-23 13:27 | disposition home or self-care (01) ==
LOC: LAB.S 13:26
PROVIDERS: ATTEND Family Medicine
DX: R10.11 Right upper quadrant pain (principal); R91.8 Other nonspecific abnormal finding of lung field; R59.0 Localized enlarged lymph nodes
CPT/HCPCS: 36415; 80053; 81599; 82164; 83690; 85027; 85651; 86038; 86140; 86480; 87389

== ENCOUNTER 2023-09-12 13:55 | Outpatient (CLI) | payer MEDICAID ==
[2023-09-12 19:43] LABS: BASOPHILS # (AUTO) 0.1 10^3/uL (0.0-0.1); BASOPHILS % (AUTO) 0.6 %; EOSINOPHILS # (AUTO) 0.2 10^3/uL (0.0-0.7); EOSINOPHILS % (AUTO) 2.6 %; HGB - HEMOGLOBIN 13.3 g/dL (12.0-16.0); LYMPHOCYTES # (AUTO) 2.6 10^3/uL (1.5-3.5); LYMPHOCYTES % (AUTO) 30.8 %; MEAN CORPUSCULAR HEMOGLOBIN 30.9 pg (27.0-31.0); MEAN CORPUSCULAR HGB CONC 31.7 g/dL (32.0-36.0); MEAN CORPUSCULAR VOLUME 97.4 fL (81.0-99.0); MEAN PLATELET VOLUME 11.2 fL (7.9-10.8); MONOCYTES # (AUTO) 0.4 10^3/uL (0.0-1.0); MONOCYTES % (AUTO) 4.6 %; NEUTROPHILS # (AUTO) 5.2 10^3/uL (1.5-6.6); NEUTROPHILS % (AUTO) 61.2 %; PLT - PLATELET COUNT 258 10^3/uL (130-450); RED BLOOD COUNT 4.31 10^6/uL (4.20-5.40); RED CELL DISTRIBUTION WIDTH 14.2 % (12.0-15.0); WHITE BLOOD COUNT 8.6 x10^3/uL (4.8-10.8)
[2023-09-12 19:59] LABS: ALBUMIN 4.1 g/dL (3.2-5.5); ALBUMIN/GLOBULIN RATIO 1.6 (1.0-2.2); ALKALINE PHOSPHATASE 63 IU/L (42-121); ALT ALANINE AMINOTRANSFERASE 9 IU/L (10-60); AST ASPARTATE AMINOTRANSFERASE 12 IU/L (10-42); BILIRUBIN,TOTAL 0.4 mg/dL (0.2-1.0); BUN - BLOOD UREA NITROGEN 11 mg/dL (6-20); CALCIUM 9.1 mg/dL (8.5-10.3); CARBON DIOXIDE - CO2 26 mmol/L (21-32); CHLORIDE 105 mmol/L (101-111); CHOL/HDL RATIO 2.8 (<4.4); CHOLESTEROL 187 mg/dL; CREATININE 0.6 mg/dL (0.6-1.3); GFR - MDRD 104 (>89); GLUCOSE 96 mg/dL (74-104); HDL CHOLESTEROL 66 mg/dL; LDL CHOLESTEROL,CALCULATED 107 mg/dL; LDL/HDL RATIO 1.6 (<4.4); POTASSIUM 3.8 mmol/L (3.5-4.5); SODIUM 138 mmol/L (135-145); TOTAL PROTEIN 6.7 g/dL (6.4-8.9); TRIGLYCERIDES 68 mg/dL (48-352); VLDL CHOLESTEROL 14 mg/dL
[2023-09-12 20:34] LABS: THYROID STIMULATING HORMONE 1.26 uIU/mL (0.34-5.60)
== END 2023-09-12 13:56 | disposition home or self-care (01) ==
LOC: LAB.S 13:55
PROVIDERS: ATTEND Family Medicine
DX: R11.2 Nausea with vomiting, unspecified (principal); R10.32 Left lower quadrant pain; R10.2 Pelvic and perineal pain
CPT/HCPCS: 36415; 80050; 80061; 83721; 86140

== ENCOUNTER 2024-01-21 11:47 | Emergency (ER) | payer MEDICAID ==
[2024-01-21 12:44] LABS: BILIRUBIN,URINE NEGATIVE (NEGATIVE); GLUCOSE, URINE (UA) NEGATIVE (NEGATIVE); KETONES,URINE (UA) NEGATIVE (NEGATIVE); LEUKOCYTE ESTERASE, URINE NEGATIVE (NEGATIVE); NITRITE,URINE NEGATIVE (NEGATIVE); OCCULT BLOOD,URINE NEGATIVE (NEGATIVE); PH,URINE 7.5 PH (5.0-7.5); PROTEIN,URINE NEGATIVE (NEGATIVE); UROBILINOGEN,URINE 0.2 (NORMAL) E.U./dL (NORMAL)
[2024-01-21 12:46] LABS: CLARITY,URINE CLEAR (CLEAR)
[2024-01-21 13:01] LABS: BASOPHILS # (AUTO) 0.1 10^3/uL (0.0-0.1); BASOPHILS % (AUTO) 0.6 %; EOSINOPHILS # (AUTO) 0.1 10^3/uL (0.0-0.7); EOSINOPHILS % (AUTO) 0.7 %; HGB - HEMOGLOBIN 14.9 g/dL (12.0-16.0); LYMPHOCYTES # (AUTO) 4.2 10^3/uL (1.5-3.5); MEAN CORPUSCULAR HGB CONC 33.9 g/dL (32.0-36.0); MEAN CORPUSCULAR VOLUME 91.5 fL (81.0-99.0); MEAN PLATELET VOLUME 9.7 fL (7.9-10.8); MONOCYTES % (AUTO) 7.3 %; NEUTROPHILS # (AUTO) 8.2 10^3/uL (1.5-6.6); NEUTROPHILS % (AUTO) 60.1 %; PLT - PLATELET COUNT 267 10^3/uL (130-450); RED BLOOD COUNT 4.81 10^6/uL (4.20-5.40); RED CELL DISTRIBUTION WIDTH 12.9 % (12.0-15.0); WHITE BLOOD COUNT 13.6 x10^3/uL (4.8-10.8)
[2024-01-21 13:24] LABS: ALBUMIN 4.6 g/dL (3.2-5.5); ALBUMIN/GLOBULIN RATIO 1.5 (1.0-2.2); BILIRUBIN,TOTAL 0.7 mg/dL (0.2-1.0); CALCIUM 9.8 mg/dL (8.5-10.3); CREATININE 0.6 mg/dL (0.6-1.3); POTASSIUM 2.7 mmol/L (3.5-4.5); TOTAL PROTEIN 7.7 g/dL (6.4-8.9)
[2024-01-21 15:37] VITALS: O2SAT 100
[2024-01-21] MEDS: SODIUM CHLORIDE 0.9% 1,000 ML IV STA (18:20)
--- NOTE | 2024-01-21 18:25 | ED Physician Documentation ---
PD HPI NVD - Stated complaint Stated Complaint: NAUSEA,VOMITING - Chief complaint Chief Complaint: Abd Pain - History obtained from History obtained from: Patient - History of Present Illness Timing - onset: How many days ago (4) Timing - duration: Days (4) Timing - details: Gradual onset Pain level max: 5 Pain level now: 2 Associated symptoms: No: Fever, Hematemesis, Melena, Hematochezia, Dizzy Improved by: Vomiting Worsened by: Eating - Additonal information Additional information: Patient is a female who had a long history in the past of abdominal pain, nausea and vomiting. She said that these episodes resolved when she entered menopause. Since then she's only had a few episodes. This one started four days ago. She states that she feels like the vomiting has mostly resolved now. No fevers. No chills. No recent travel. No recent antibiotics. She does say that she feels dizzy if she stands up too quickly. 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: None : Kidney stones HEENT: None Psych: Anxiety, Panic attacks Musculoskeletal: Osteoarthritis Derm: None - Past Surgical History Past Surgical History: Yes General: Colonoscopy, EGD - Present Medications Home Medications: Ambulatory Orders Medication Instructions Recorded Confirmed Ciprofloxacin HCl [Cipro] 500 mg PO DAILY 04/23/23 04/23/23 Ondansetron Odt [Zofran] 4 mg TL Q6H PRN #10 tablet 01/21/24 - Allergies Allergies/Adverse Reactions: Allergies Allergy/AdvReac Type Severity Reaction Status Date / Time codeine [Codeine] Allergy Mild Nausea Verified 01/21/24 12:12 - Social History Does the pt smoke?: Yes Smoking Status: Current every day smoker Does the pt drink ETOH?: No Does the pt have substance abuse?: Yes - Immunizations Immunizations are current?: Yes - POLST Patient has POLST: No PD ED PE NORMAL - Vitals Vital signs reviewed: Yes - General General: Alert and oriented X 3, No acute distress - HEENT HEENT: PERRL, Moist mucous membranes - Neck Neck: Supple, no meningeal sign - Cardiac Cardiac: RRR, Strong equal pulses - Respiratory Respiratory: No respiratory distress, Clear bilaterally - Abdomen Abdomen: Soft, Non tender, Non distended - Back Back: No CVA TTP, No spinal TTP - Derm Derm: Warm and dry - Extremities Extremities: No edema - Neuro Neuro: Alert and oriented X 3 - Psych Psych: Normal mood, Normal affect Results - Vitals Vitals: Oxygen O2 Source Room air - Labs Labs: Laboratory Tests 01/21/24 01/21/24 01/21/24 12:30 12:57 12:57 WBC 13.6 H RBC 4.81 Hgb 14.9 Hct 44.0 MCV 91.5 MCH 31.0 MCHC 33.9 RDW 12.9 Plt Count 267 MPV 9.7 Neut # (Auto) 8.2 H Lymph # (Auto) 4.2 H [place] # (Auto) 1.0 Eos # (Auto) 0.1 Baso # (Auto) 0.1 Absolute Nucleated RBC 0.00 Nucleated RBC % 0.0 Sodium 129 L Potassium 2.7 L Chloride 89 L Carbon Dioxide 32 Anion Gap 8.0 BUN 14 Creatinine 0.6 Estimated GFR (MDRD) 104 Glucose 100 Calcium 9.8 Total Bilirubin 0.7 AST 16 ALT 19 Alkaline Phosphatase 63 Total Protein 7.7 Albumin 4.6 Globulin 3.1 Albumin/Globulin Ratio 1.5 Lipase 176 H Urine Color YELLOW Urine Clarity CLEAR Urine pH 7.5 Ur Specific [place] 1.015 Urine Protein NEGATIVE Urine Glucose (UA) NEGATIVE Urine Ketones NEGATIVE Urine Occult Blood NEGATIVE Urine Nitrite NEGATIVE Urine Bilirubin NEGATIVE Urine Urobilinogen 0.2 (NORMAL) Ur Leukocyte Esterase NEGATIVE Ur Microscopic Review NOT INDICATED Urine Culture Comments NOT INDICATED PD Medical Decision Making - ED course Complexity details: reviewed results, re-evaluated patient, considered differential, d/w patient ED course: Patient with nausea and vomiting times four days. She does have a mild low sodium, low potassium, and low chloride, consistent with vomiting. Her lipase is mildly elevated as well. Her abdomen is soft. No tenderness, no distention. Tolerating PO without difficulty here. She does not want an IV. She states that she would like a nausea medication for Home. She doesn't want any further work up at this time. She will follow up with her doctor for further care.Patient counseled regarding signs and symptoms for which I believe an urgent re- evaluation would be necessary. Patient with good understanding of and agreement to plan and is comfortable going home at this time. This document was made in part using voice recognition software. While efforts are made to proofread this document, sound alike and grammatical errors may occur. Departure - Departure Disposition: 01 Home, Self Care Clinical Impression: Vomiting, Hyponatremia, Hypokalemia Condition: Good Instructions: ED Nausea Vomiting Follow-Up: Elier Sierra MD [Primary Care Provider] - Prescriptions: Ondansetron Odt [Zofran] 4 mg TL Q6H PRN #10 tablet PRN Reason: Nausea / Vomiting Comments: Please follow-up with your doctor for further care. Please return if you worsen. You should have your sodium levels and your potassium levels rechecked with your doctor this week. Your prescriptions were sent to [facility] in [place]. You are dehydrated, please make sure that you are drinking plenty of water at home. Your lipase is mildly elevated, this can be rechecked with your doctor as well. Please return if you worsen or if you change your mind about having IV fluids given. Forms: PCP List Discharge Date/Time: 01/21/24 18:34
[2024-01-21 18:34] VITALS: BP 112/85
== END 2024-01-21 18:34 | disposition home or self-care (01) ==
LOC: ED 11:47
DX: R11.10 Vomiting, unspecified (principal); E87.1 Hypo-osmolality and hyponatremia; E87.6 Hypokalemia; F17.210 Nicotine dependence, cigarettes, uncomplicated
CPT/HCPCS: 36415; 80053; 81001; 81003; 83690; 85025; 87086; 99283; 99284

== ENCOUNTER 2024-03-14 13:41 | Outpatient (CLI) | payer MEDICAID ==
[2024-03-14 20:04] LABS: BASOPHILS # (AUTO) 0.1 10^3/uL (0.0-0.1); BASOPHILS % (AUTO) 0.8 %; EOSINOPHILS # (AUTO) 0.5 10^3/uL (0.0-0.7); EOSINOPHILS % (AUTO) 6.2 %; HGB - HEMOGLOBIN 13.8 g/dL (12.0-16.0); LYMPHOCYTES # (AUTO) 2.9 10^3/uL (1.5-3.5); LYMPHOCYTES % (AUTO) 33.1 %; MEAN CORPUSCULAR HEMOGLOBIN 30.9 pg (27.0-31.0); MEAN CORPUSCULAR HGB CONC 32.1 g/dL (32.0-36.0); MEAN CORPUSCULAR VOLUME 96.2 fL (81.0-99.0); MONOCYTES # (AUTO) 0.5 10^3/uL (0.0-1.0); MONOCYTES % (AUTO) 5.3 %; NEUTROPHILS # (AUTO) 4.8 10^3/uL (1.5-6.6); NEUTROPHILS % (AUTO) 54.5 %; PLT - PLATELET COUNT 218 10^3/uL (130-450); RED BLOOD COUNT 4.47 10^6/uL (4.20-5.40); RED CELL DISTRIBUTION WIDTH 14.1 % (12.0-15.0); WHITE BLOOD COUNT 8.8 x10^3/uL (4.8-10.8)
[2024-03-14 20:25] LABS: ALBUMIN 4.1 g/dL (3.2-5.5); ALBUMIN/GLOBULIN RATIO 1.5 (1.0-2.2); BILIRUBIN,TOTAL 0.4 mg/dL (0.2-1.0); CREATININE 0.7 mg/dL (0.6-1.3); POTASSIUM 3.7 mmol/L (3.5-4.5); TOTAL PROTEIN 6.8 g/dL (6.4-8.9)
[2024-03-14 20:35] LABS: THYROID STIMULATING HORMONE 1.12 uIU/mL (0.34-5.60)
== END 2024-03-14 13:42 | disposition home or self-care (01) ==
LOC: LAB.S 13:41
PROVIDERS: ATTEND Family Medicine
DX: R51.9 Headache, unspecified (principal); R11.0 Nausea; E87.6 Hypokalemia; E87.1 Hypo-osmolality and hyponatremia; R53.83 Other fatigue
CPT/HCPCS: 36415; 80050

== ENCOUNTER 2024-03-28 10:14 | Outpatient (CLI) | payer MEDICAID ==
--- NOTE | 2024-03-28 11:41 | CT Report ---
Chest WO: 03/28/2024 9:56 AM PDT CLINICAL HISTORY: 53 years of age, Female, LUNG NODULE. COMPARISON: 04/23/2023, and 06/27/2021 TECHNIQUE: A CT scan of the chest was performed. Intravenous contrast media was not administered. Im ages were recorded and evaluated at appropriate window settings. Reformats: axial MIP of the chest, c oronal and sagittal. For radiation dose reduction, the following was used: automated exposure control , adjustment of mA and/or kV according to patient size. FINDINGS: Lungs:Moderate centrilobular and paraseptal emphysema. 5 mm pulmonary nodule in the right middle lobe (4:67), unchanged from prior exam. 7 mm pulmonary nodule in the left lower lobe (4:73), grossly unch anged from prior exam. No pleural effusion, pneumothorax, pulmonary edema or focal consolidation. Soft tissue/mediastinum/heart: Heart is normal in size. No pericardial effusion.No significant joy ry artery calcification. Normal thoracic aorta. No thoracic aortic aneurysm. No mediastinal, hilar, or axillary lymphadenopathy. Visualized portion of the upper abdomen:Unremarkable Bones: No suspicious bony lesion. IMPRESSION: 1.2 pulmonary nodules, measuring up to 7 mm, unchanged dating back to 06/27/2021, favoring benign jose ology given stability. Reviewed by: Anastacia Pruitt MD on 03/28/2024 11:40 AM PDT Approved by: Anastacia Pruitt MD on 03/28/2024 11:40 AM PDT Station ID: [id number]
== END 2024-03-28 10:15 | disposition home or self-care (01) ==
LOC: DI 10:14
PROVIDERS: ATTEND Family Medicine
DX: R91.8 Other nonspecific abnormal finding of lung field (principal); J43.9 Emphysema, unspecified

== ENCOUNTER 2024-03-31 10:50 | Outpatient (CLI) | payer MEDICAID ==
--- NOTE | 2024-04-01 09:44 | Mammography Report ---
BILATERAL DIGITAL SCREENING MAMMOGRAM 3D/2D: 03/31/2024 CLINICAL: Routine screening. Family history of breast cancer. Comparison is made to exams dated: 12/18/2021 mammogram, 08/17/2020 mammogram, 05/01/2018 mammogram, mammogram, 01/14/2014 mammogram, and 07/27/2010 mammogram - [facility]. There are scattered areas of fibroglandular density (category b / 25%-50% glandular tissue). No significant masses, calcifications, or other findings are seen in either breast. There has been no significant interval change. IMPRESSION: NEGATIVE There is no mammographic evidence of malignancy. A 1 year screening mammogram is recommended. Based on Tyrer-Cuzick model (a risk assessment model), the patient's lifetime risk is 21.0% and her 1 0 year risk is 6.3%. If a patient has an elevated risk, a more comprehensive evaluation should be con sidered and/or a referral to a genetic counselor. The [place] [employer], [place] [employer], and NCCN Guidelines advise the consideration of Breast MRI as an adjunct to screening mammog misti in patients whose "Lifetime risk to develop breast cancer" is 20% or higher. This exam was interpreted at Station ID: [id number]. NOTE: For mammograms, a report in lay terms will be sent to the patient. Approximately 15% of breast malignancies will not be visualized mammographically. In the management of a palpable breast mass, a negative mammogram must not discourage biopsy of a clinically suspicious lesion. Electronically Signed By: Judith Keller M.D., Ph.D. eb/penrad:04/01/2024 09:13:46 ACR BI-RADS Category 1: Negative PARENCHYMAL PATTERN: (A) - The breast(s) demonstrate(s) scattered fibroglandular densities. BI-RADS CATEGORY: (1) - 1 RECOMMENDATION: (ANNUAL) - Recommend routine annual screening mammography. [id number] 1 year screening LATERALITY: (B)
== END 2024-03-31 10:51 | disposition home or self-care (01) ==
LOC: DI.S 10:50
DX: Z12.31 Encounter for screening mammogram for malignant neoplasm of breast (principal); Z80.3 Family history of malignant neoplasm of breast